=== PATIENT | male | born 1945 | race Native Hawaiian/Other Pacific Islander ===

== ENCOUNTER 2017-06-29 06:32 | Inpatient (IN) | payer MEDICARE, MEDICAID ==
[2017-06-29 07:15] LABS: BASO % 0.3 % (0.0-2.0)
[2017-06-29 07:19] LABS: EOS % 0.1 % (0.0-4.0); LYMPH % 8.3 % (20.0-40.0); MEAN CELL VOLUME 99.6 fL (80.0-94.0); MEAN CORPUSCULAR HGB CONC 32.1 g/dL (33.0-37.0); MEAN PLATELET VOLUME 10.3 fL (7.2-11.7); MONO # 0.5 K/uL (0.0-0.8); MONO % 4.6 % (0.0-10.0); NEUT % 86.7 % (50.0-75.0); PLATELET COUNT 248 K/uL (130-400); RBC 6.38 Mil/uL (4.40-5.90); RED CELL DISTRIBUTION WIDTH 13.7 % (11.5-14.5); WHITE BLOOD COUNT 11.5 K/uL (4.8-10.8)
[2017-06-29 07:22] LABS: PROTHROMBIN TIME 11.1 SECONDS (9.7-12.2)
[2017-06-29 07:25] LABS: HEMOGLOBIN 20.4 g/dL (12.0-18.0)
[2017-06-29] MEDS ORDERED: Sodium Chloride 0.9% 1,000 ML IV ONE ×2 (07:32→07:56)
[2017-06-29] MEDS ORDERED: Sodium Chloride 0.9% 1,000 ML ONE (07:50)
[2017-06-29 07:51] LABS: VENOUS BLOOD GAS PCO2 43 mmHg (40-60); VENOUS BLOOD GAS PO2 45 mm/Hg (30-55); VENOUS BLOOD PH 7.27 (7.32-7.43)
[2017-06-29] MEDS ORDERED: Vancomycin 1 gm/NS 200 ml 1 GM/200 ML BAG IVPB STA (08:00)
[2017-06-29] MEDS ORDERED: Piperacill/Tazo 3.375gm in Dex 3.375 GM/50 ML BAG IVPB STA (08:00)
[2017-06-29 08:09] LABS: ALB/GLOB RATIO 0.9 (1.0-2.1); ALBUMIN 4.5 g/dL (3.5-5.0); ALT/SGPT 46 U/L (21-72); AST/SGOT 50 U/L (17-59); BLOOD UREA NITROGEN 78 mg/dL (9-20); CALCIUM 10.9 mg/dl (8.6-10.4); GFR AFRICAN-AMERICAN 27; GFR NON-AFRICAN AMERICAN 22
[2017-06-29 08:10] LABS: BANDS 4 % (0-2); LYMPHOCYTE 5 % (20-40); MONOCYTE 2 % (0-10); NEUTROPHIL 89 % (50-75); TOTAL CELLS COUNTED 100
[2017-06-29 08:11] LABS: PLATELET ESTIMATE NORMAL (NORMAL)
--- NOTE | 2017-06-29 08:22 | C.PDOC ---
History Of Present Illness 72 y/o male brought to ER by family for decreased appetite and generalized weakness x 3 days. Pt is also c/o of a headache which began last night. Pt denies having other complaints. Time Seen by Provider: 06/29/17 07:30 Chief Complaint (Nursing): Dizziness/Lightheaded History Per: Patient, Family History/Exam Limitations: no limitations Onset/Duration Of Symptoms: Days Current Symptoms Are (Timing): Still Present Past Medical History Reviewed: Historical Data, Nursing Documentation, Vital Signs Vital Signs: Last Vital Signs Temp 98.2 F 06/29/17 16:00 Pulse 100 H 06/29/17 17:20 Resp 26 H 06/29/17 17:20 BP 142/68 06/29/17 16:30 Pulse Ox 96 06/29/17 19:22 - Medical History PMH: Hypercholesterolemia, Hypothyroidism Surgical History: No Surg Hx Family History: States: No Known Family Hx - Social History Hx Alcohol Use: No Hx Substance Use: No - Immunization History Hx Tetanus Toxoid Vaccination: No Hx Influenza Vaccination: No Hx Pneumococcal Vaccination: No Review Of Systems Constitutional: Positive for: Weakness. Negative for: Fever, Chills Neurological: Positive for: Headache Physical Exam - Physical Exam Appears: Toxic, Confused, Chronically Ill Skin: Warm, Dry Head: Atraumatic, Normacephalic Eye(s): bilateral: Normal Inspection Oral Mucosa: Dry Teeth: Edentulous (mostly edentulous) Neck: Supple Chest: Symmetrical Cardiovascular: Rhythm Irregular (tachycardiac), No Murmur Respiratory: No Wheezing, Other (difficult to examine) Gastrointestinal/Abdominal: Soft, Distention (mild distention) Extremity: No Pedal Edema Pulses: Left Dorsalis Pedis: Normal, Right Dorsalis Pedis: Normal Neurological/Psych: Oriented x3, Normal Speech, Normal Motor, Normal Sensation ED Course And Treatment - Laboratory Results Result Diagrams: 06/29/17 07:08 06/29/17 15:31 O2 Sat by Pulse Oximetry: 96 (RA) Pulse Ox Interpretation: Normal - Radiology CXR: Interpreted by Me, Viewed By Me CXR Interpretation: Yes: No Acute Disease - CT Scan/US CT-Head Other Rad Studies (CT/US): Read By Radiologist CT/US Interpretation: PROCEDURE: CT HEAD WITHOUT CONTRAST. HISTORY: Altered mental status, dizziness. COMPARISON: None available. TECHNIQUE: Axial computed tomography images were obtained through the head/brain without intravenous contrast. Radiation dose: Total exam DLP = 1730.48 mGy-cm. This CT exam was performed using one or more of the following dose reduction techniques: Automated exposure control, adjustment of the mA and/or kV according to patient size, and/or use of iterative reconstruction technique. FINDINGS: HEMORRHAGE: No intracranial hemorrhage. BRAIN: There is an old lacunar infarction in the right last radiata. There are mild chronic microangiopathic changes. There is no mass, mass effect or abnormal extra- axial fluid collection. There are coarse atherosclerotic calcifications in the cavernous carotid arteries. VENTRICLES: There is moderate age-related global parenchymal volume loss and proportionate enlargement of the ventricles and cortical sulci. CALVARIUM: The skull base and calvarium are normal. PARANASAL SINUSES: Predominantly clear. MASTOID AIR CELLS: Predominantly clear. OTHER FINDINGS: None. IMPRESSION: No acute intracranial abnormality. Old lacunar infarction in the right last radiata. Mild chronic microangiopathic changes and moderate age-related global parenchymal volume loss. Medical Decision Making Medical Decision Making: Plan: --Labs --EKG --CT-Head Updates: sepsis code called Dr Araya aware for Dr Juan Manuel Dao ICU to see patient Disposition Discussed With Dr.: Reyna Araya Doctor Will See Patient In The: Hospital - Disposition Disposition: HOSPITALIZED Disposition Time: 08:59 Condition: SERIOUS - Clinical Impression Clinical Impression: Sepsis, Renal failure, DKA (diabetic ketoacidoses) - PA / CLAIMS COUNSEL / Resident Statement MD/DO has reviewed & agrees with the documentation as recorded. - Scribe Statement The provider has reviewed the documentation as recorded by the Yeimy Ortiz Provider Attestation All medical record entries made by the Yeimy were at my direction and personally dictated by me. I have reviewed the chart and agree that the record accurately reflects my personal performance of the history, physical exam, medical decision making, and the department course for this patient. I have also personally directed, reviewed, and agree with the discharge instructions and disposition.
[2017-06-29] MEDS ORDERED: (Novolin R) Insulin Human Regular 100 units/ml vial IV ONE (08:31)
[2017-06-29] MEDS ORDERED: Insulin Human Regular 100 UNIT in Sodium Chloride 0.9% 99 ML IV SCH (08:45)
--- NOTE | 2017-06-29 08:47 | CP.PCM.CON ---
<Lelo Perez - Last Filed: 06/29/17 15:06> History of Present Illness - History of Present Illness History of Present Illness: ICU Consult Note: Patient is a 72 year old male with past medical history of BPH and Hypothyroidism presents to the ED for 3 day history of decrease appetite and generalized weakness. Patient's nephew is at the bedside providing the history. States that the patient reported having a headache and dizziness last night. He states that he gave him Aleeve before bed. This morning he reports that the patients gait was unstable which prompted him to come to the ED. Code sepsis was called. ICU was consulted for this admission. ED course: NS bolus 1L x 2, Zosyn 3.375mg IV x 1, Vancomycin 1gm x 1, Insulin Drip Allergies: NKDA Medications: Synthroid 25 mcg PO daily, Flomax 0.4mg PO daily, Multivitamins Medical Hx: Hypothyroidism, BPH, Hypercholesterolemia Surgical Hx: Denies Social Hx: Denies alcohol, tobacco, drug use Family Hx: Non-contributory Past Patient History - Infectious Disease Hx of Infectious Diseases: None - Past Social History Smoking Status: Never Smoked - CARDIAC Hx Hypercholesterolemia: Yes - ENDOCRINE/METABOLIC Hx Hypothyroidism: Yes - PSYCHIATRIC Hx Substance Use: No - SURGICAL HISTORY Hx Surgeries: No - ANESTHESIA Hx Anesthesia: No Meds Allergies/Adverse Reactions: Allergies Allergy/AdvReac Type Severity Reaction Status Date / Time No Known Allergies Allergy Verified 06/29/17 06:45 - Medications Medications: Current Medications Sodium Chloride (Sodium Chloride 0.9%) 1,000 mls @ 1,000 mls/hr IV .Q1H ONE Stop: 06/29/17 08:55 Last Admin: 06/29/17 08:00 Dose: 1,000 mls/hr Vancomycin/Sodium Chloride (Vancomycin 1 Gm/Ns 200 Ml) 1 gm in 200 mls @ 133 mls/hr IVPB STAT STA PRN Reason: Protocol Stop: 06/29/17 09:30 Insulin Human Regular 100 unit (/ Sodium Chloride) 100 mls @ 7 mls/hr IV .[id number] [facility] Physical Exam - Constitutional Appears: Chronically Ill - Head Exam Head Exam: ATRAUMATIC, NORMAL INSPECTION - Eye Exam Additional comments: Patient is blind - ENT Exam ENT Exam: Mucous Membranes Dry Additional comments: +hearing aid in the right ear - Respiratory Exam Respiratory Exam: Clear to Auscultation Bilateral, NORMAL BREATHING PATTERN. absent: Rales, Rhonchi, Wheezes - Cardiovascular Exam Cardiovascular Exam: Tachycardia, REGULAR RHYTHM, +S1, +S2 - GI/Abdominal Exam GI & Abdominal Exam: Normal Bowel Sounds, Soft. absent: Guarding, Rebound, Rigid, Tenderness - Extremities Exam Extremities exam: Positive for: normal inspection - Neurological Exam Neurological exam: Abnormal Gait (Patient is blind), Alert, Altered - Skin Skin Exam: Dry, Normal Color, Warm Results - Vital Signs Recent Vital Signs: Last Vital Signs Temp 98.7 F 06/29/17 08:02 Pulse 109 H 06/29/17 08:02 Resp 18 06/29/17 08:02 BP 150/109 H 06/29/17 08:02 Pulse Ox 96 06/29/17 08:45 - Labs Result Diagrams: 06/29/17 07:08 06/29/17 11:13 Labs: Laboratory Results - last 24 hr 06/29/17 06/29/17 06/29/17 07:08 07:08 07:08 WBC 11.5 H RBC 6.38 H Hgb 20.4 H* Hct 63.5 H MCV 99.6 H MCH 32.0 H MCHC 32.1 L RDW 13.7 Plt Count 248 MPV 10.3 Neut % (Auto) 86.7 H Lymph % (Auto) 8.3 L [place] % (Auto) 4.6 Eos % (Auto) 0.1 Baso % (Auto) 0.3 Neut # (Auto) 10.0 H Lymph # (Auto) 1.0 [place] # (Auto) 0.5 Eos # (Auto) 0.0 Baso # (Auto) 0.0 Neutrophils % (Manual) 89 H Band Neutrophils % 4 H Lymphocytes % (Manual) 5 L Monocytes % (Manual) 2 Platelet Estimate Normal RBC Morphology Normal PT 11.1 INR 1.0 APTT 32 pO2 VBG pH VBG pCO2 VBG HCO3 VBG Total CO2 VBG O2 Sat (Calc) VBG Base Excess VBG Potassium Glucose Lactate Crit Value Called To Crit Value Called By Crit Value Read Back Blood Gas Notified Time Sodium 144 Potassium 5.5 H Chloride 94 L Carbon Dioxide 16 L Anion Gap 39 H BUN 78 H Creatinine 2.8 H Est GFR ( Amer) 27 Est GFR (Non-Af Amer) 22 Random Glucose 1108 H* Calcium 10.9 H Phosphorus Magnesium Total Bilirubin 1.3 AST 50 ALT 46 Alkaline Phosphatase 133 H Troponin I 0.1070 NT-Pro-B Natriuret Pep Total Protein 9.4 H Albumin 4.5 Globulin 4.9 H Albumin/Globulin Ratio 0.9 L Venous Blood Potassium Serum Ketones Moderate 06/29/17 06/29/17 07:46 08:00 WBC RBC Hgb Hct MCV MCH MCHC RDW Plt Count MPV Neut % (Auto) Lymph % (Auto) [place] % (Auto) Eos % (Auto) Baso % (Auto) Neut # (Auto) Lymph # (Auto) [place] # (Auto) Eos # (Auto) Baso # (Auto) Neutrophils % (Manual) Band Neutrophils % Lymphocytes % (Manual) Monocytes % (Manual) Platelet Estimate RBC Morphology PT INR APTT pO2 45 VBG pH 7.27 L VBG pCO2 43 VBG HCO3 18.8 VBG Total CO2 21.0 L VBG O2 Sat (Calc) 79.4 H VBG Base Excess -7.0 L VBG Potassium 5.7 H Glucose > 750 H* Lactate 5.1 H* Crit Value Called To Dr gupta Crit Value Called By Monty wright food general manager Crit Value Read Back Y Blood Gas Notified Time 750 Sodium 146.0 Potassium Chloride 91.0 L Carbon Dioxide Anion Gap BUN Creatinine Est GFR ( Amer) Est GFR (Non-Af Amer) Random Glucose Calcium Phosphorus 8.2 H Magnesium 3.3 H Total Bilirubin AST ALT Alkaline Phosphatase Troponin I NT-Pro-B Natriuret Pep 356 Total Protein Albumin Globulin Albumin/Globulin Ratio Venous Blood Potassium 5.7 H Serum Ketones Assessment & Plan - Assessment and Plan (Free Text) Assessment: Patient is a 72 year old male with past medical history of BPH, hypothyroidism who presented with decreased appetite x 3 days, generalized weakness and unstable gait. Code sepsis was called in the ED. Source unknown at this time. Neurology: -Patient presented with altered mental status -Currently he is awake, but confused -CT head: No acute intracranial abnormality. Old lacunar infarction in the right last radiata. Mild chronic microangiopathic changes and moderate age- related global parenchymal volume loss -Aspiration precautions, Fall precautions Cardiology: -Tachycardia, HR 110-120s -EKG ordered, f/u read -F/U TSH, Free T4 levels, lipid panel Respiratory: -CXR 06/29: No active disease Endocrine: -Patient with history of Hypothyroidism -On Synthroid 25mcg PO daily at home -F/U TSH, Free T4 -Family denies prior history diabetes -Serum glucose 1108 on admission -Insulin 10 units x 1, then start Insulin drip at 7 mls/hour -Monitor CMPs Q4H, Serum ketones Q4H, Accuchecks q1H -Continue NS @ 250cc/hr Heme/Onc: -Hgb/Hct: 20.4/63.5 -Likely due to dehydration -Continue NS @ 250cc/hr -Will monitor serial CBCs Renal: -Elevated Bun/Cr: 78/2.8 -Baseline renal function unknown -Urine sodium, Urine creatinine ordered -Continue IV fluid hydration -Monitoring CMPs Q4H -Edwards in, strict I/Os Infectious Disease: -Patient is code sepsis -Lactate on VBG 5.1, f/u repeat lactate -S/P NS 1L bolus x 2 in the ED, Received vanco and zosyn -Source is unknown at this time -UA: +1 protein, +3 glucose, +2 blood, trace ketones -F/U blood cultures, urine cultures, procal -Antibiotics: Vancomycin 1gm IV Q24H, Zosyn 2.25mg IV Q8H GI/DVT ppx: -Pepcid 20mg IVP daily -Heparin 5000 units SC Q12H <Steven Keith - Last Filed: 06/29/17 15:13> Meds - Medications Medications: Current Medications Famotidine (Pepcid) 20 mg IVP DAILY [facility] Last Admin: 06/29/17 12:39 Dose: 20 mg Heparin Sodium (Porcine) (Heparin) 5,000 units SC Q12 [facility] Last Admin: 06/29/17 12:39 Dose: 5,000 units Insulin Human Regular 100 unit (/ Sodium Chloride) 100 mls @ 7 mls/hr IV .[id number] [facility] Last Admin: 06/29/17 09:48 Dose: 7 mls/hr Vancomycin/Sodium Chloride (Vancomycin 1 Gm/Ns 200 Ml) 1 gm in 200 mls @ 133.333 mls/hr IVPB Q24H [facility] PRN Reason: Protocol Last Admin: 06/29/17 12:09 Dose: Not Given Piperacillin Sod/Tazobactam Sod (Zosyn 2.25 Gm Iv Premix) 2.25 gm in 50 mls @ 100 mls/hr IVPB Q8H [facility] PRN Reason: Protocol Potassium Chloride 20 meq/ (Sodium Chloride) 1,010 mls @ 250 mls/hr IV .Q4H3M [facility] Last Admin: 06/29/17 13:54 Dose: 250 mls/hr Results - Vital Signs Recent Vital Signs: Last Vital Signs Temp 98.1 F 06/29/17 12:00 Pulse 101 H 06/29/17 13:50 Resp 24 06/29/17 13:50 BP 131/71 06/29/17 13:31 Pulse Ox 91 L 06/29/17 13:50 - Labs Result Diagrams: 06/29/17 07:08 06/29/17 11:13 Labs: Laboratory Results - last 24 hr 06/29/17 06/29/17 06/29/17 07:08 07:08 07:08 WBC 11.5 H RBC 6.38 H Hgb 20.4 H* Hct 63.5 H MCV 99.6 H MCH 32.0 H MCHC 32.1 L RDW 13.7 Plt Count 248 MPV 10.3 Neut % (Auto) 86.7 H Lymph % (Auto) 8.3 L [place] % (Auto) 4.6 Eos % (Auto) 0.1 Baso % (Auto) 0.3 Neut # (Auto) 10.0 H Lymph # (Auto) 1.0 [place] # (Auto) 0.5 Eos # (Auto) 0.0 Baso # (Auto) 0.0 Neutrophils % (Manual) 89 H Band Neutrophils % 4 H Lymphocytes % (Manual) 5 L Monocytes % (Manual) 2 Platelet Estimate Normal RBC Morphology Normal PT 11.1 INR 1.0 APTT 32 pO2 VBG pH VBG pCO2 VBG HCO3 VBG Total CO2 VBG O2 Sat (Calc) VBG Base Excess VBG Potassium Glucose Lactate Crit Value Called To Crit Value Called By Crit Value Read Back Blood Gas Notified Time Sodium 144 Potassium 5.5 H Chloride 94 L Carbon Dioxide 16 L Anion Gap 39 H BUN 78 H Creatinine 2.8 H Est GFR ( Amer) 27 Est GFR (Non-Af Amer) 22 POC Glucose (mg/dL) Random Glucose 1108 H* Hemoglobin A1c Lactic Acid Calcium 10.9 H Phosphorus Magnesium Total Bilirubin 1.3 AST 50 ALT 46 Alkaline Phosphatase 133 H Troponin I 0.1070 NT-Pro-B Natriuret Pep Total Protein 9.4 H Albumin 4.5 Globulin 4.9 H Albumin/Globulin Ratio 0.9 L Triglycerides Cholesterol LDL Cholesterol Direct HDL Cholesterol Procalcitonin Free T4 TSH 3rd Generation Venous Blood Potassium Urine Color Urine Clarity Urine pH Ur Specific [place] Urine Protein Urine Glucose (UA) Urine Ketones Urine Blood Urine Nitrate Urine Bilirubin Urine Urobilinogen Ur Leukocyte Esterase Urine WBC (Auto) Urine RBC (Auto) Urine Bacteria Serum Ketones Moderate 06/29/17 06/29/17 06/29/17 07:46 08:00 08:21 WBC RBC Hgb Hct MCV MCH MCHC RDW Plt Count MPV Neut % (Auto) Lymph % (Auto) [place] % (Auto) Eos % (Auto) Baso % (Auto) Neut # (Auto) Lymph # (Auto) [place] # (Auto) Eos # (Auto) Baso # (Auto) Neutrophils % (Manual) Band Neutrophils % Lymphocytes % (Manual) Monocytes % (Manual) Platelet Estimate RBC Morphology PT INR APTT pO2 45 VBG pH 7.27 L VBG pCO2 43 VBG HCO3 18.8 VBG Total CO2 21.0 L VBG O2 Sat (Calc) 79.4 H VBG Base Excess -7.0 L VBG Potassium 5.7 H Glucose > 750 H* Lactate 5.1 H* Crit Value Called To Dr gupta Crit Value Called By Monty wright food general manager Crit Value Read Back Y Blood Gas Notified Time 750 Sodium 146.0 Potassium Chloride 91.0 L Carbon Dioxide Anion Gap BUN Creatinine Est GFR ( Amer) Est GFR (Non-Af Amer) POC Glucose (mg/dL) Random Glucose Hemoglobin A1c Lactic Acid Calcium Phosphorus 8.2 H Magnesium 3.3 H Total Bilirubin AST ALT Alkaline Phosphatase Troponin I NT-Pro-B Natriuret Pep 356 Total Protein Albumin Globulin Albumin/Globulin Ratio Triglycerides Cholesterol LDL Cholesterol Direct HDL Cholesterol Procalcitonin Free T4 TSH 3rd Generation Venous Blood Potassium 5.7 H Urine Color Yellow Urine Clarity Hazy Urine pH 5.0 Ur Specific [place] 1.026 Urine Protein 1+ H Urine Glucose (UA) 3+ H Urine Ketones Trace Urine Blood 2+ H Urine Nitrate Negative Urine Bilirubin Negative Urine Urobilinogen Normal Ur Leukocyte Esterase Neg Urine WBC (Auto) 1 Urine RBC (Auto) 1 Urine Bacteria Rare Serum Ketones 06/29/17 06/29/17 06/29/17 10:25 10:34 11:13 WBC RBC Hgb Hct MCV MCH MCHC RDW Plt Count MPV Neut % (Auto) Lymph % (Auto) [place] % (Auto) Eos % (Auto) Baso % (Auto) Neut # (Auto) Lymph # (Auto) [place] # (Auto) Eos # (Auto) Baso # (Auto) Neutrophils % (Manual) Band Neutrophils % Lymphocytes % (Manual) Monocytes % (Manual) Platelet Estimate RBC Morphology PT INR APTT pO2 VBG pH VBG pCO2 VBG HCO3 VBG Total CO2 VBG O2 Sat (Calc) VBG Base Excess VBG Potassium Glucose Lactate Crit Value Called To Crit Value Called By Crit Value Read Back Blood Gas Notified Time Sodium 158 H Potassium 3.8 Chloride 112 H Carbon Dioxide 22 Anion Gap 28 H BUN 71 H Creatinine 2.0 H Est GFR ( Amer) 40 Est GFR (Non-Af Amer) 33 POC Glucose (mg/dL) > 500 H* 466 H* Random Glucose 522 H* D Hemoglobin A1c Lactic Acid Calcium 9.5 Phosphorus Magnesium Total Bilirubin 1.0 AST 41 ALT 46 Alkaline Phosphatase 96 Troponin I NT-Pro-B Natriuret Pep Total Protein 7.6 Albumin 3.6 Globulin 4.0 H Albumin/Globulin Ratio 0.9 L Triglycerides 299 H Cholesterol 180 LDL Cholesterol Direct 119 HDL Cholesterol 30 Procalcitonin Free T4 TSH 3rd Generation 0.47 Venous Blood Potassium Urine Color Urine Clarity Urine pH Ur Specific [place] Urine Protein Urine Glucose (UA) Urine Ketones Urine Blood Urine Nitrate Urine Bilirubin Urine Urobilinogen Ur Leukocyte Esterase Urine WBC (Auto) Urine RBC (Auto) Urine Bacteria Serum Ketones Moderate 06/29/17 06/29/17 06/29/17 11:13 11:13 11:13 WBC RBC Hgb Hct MCV MCH MCHC RDW Plt Count MPV Neut % (Auto) Lymph % (Auto) [place] % (Auto) Eos % (Auto) Baso % (Auto) Neut # (Auto) Lymph # (Auto) [place] # (Auto) Eos # (Auto) Baso # (Auto) Neutrophils % (Manual) Band Neutrophils % Lymphocytes % (Manual) Monocytes % (Manual) Platelet Estimate RBC Morphology PT INR APTT pO2 VBG pH VBG pCO2 VBG HCO3 VBG Total CO2 VBG O2 Sat (Calc) VBG Base Excess VBG Potassium Glucose Lactate Crit Value Called To Crit Value Called By Crit Value Read Back Blood Gas Notified Time Sodium Potassium Chloride Carbon Dioxide Anion Gap BUN Creatinine Est GFR ( Amer) Est GFR (Non-Af Amer) POC Glucose (mg/dL) Random Glucose Hemoglobin A1c Lactic Acid 3.3 H Calcium Phosphorus Magnesium Total Bilirubin AST ALT Alkaline Phosphatase Troponin I NT-Pro-B Natriuret Pep Total Protein Albumin Globulin Albumin/Globulin Ratio Triglycerides Cholesterol LDL Cholesterol Direct HDL Cholesterol Procalcitonin 0.36 Free T4 1.06 TSH 3rd Generation Venous Blood Potassium Urine Color Urine Clarity Urine pH Ur Specific [place] Urine Protein Urine Glucose (UA) Urine Ketones Urine Blood Urine Nitrate Urine Bilirubin Urine Urobilinogen Ur Leukocyte Esterase Urine WBC (Auto) Urine RBC (Auto) Urine Bacteria Serum Ketones 06/29/17 06/29/17 06/29/17 11:13 11:31 12:32 WBC RBC Hgb Hct MCV MCH MCHC RDW Plt Count MPV Neut % (Auto) Lymph % (Auto) [place] % (Auto) Eos % (Auto) Baso % (Auto) Neut # (Auto) Lymph # (Auto) [place] # (Auto) Eos # (Auto) Baso # (Auto) Neutrophils % (Manual) Band Neutrophils % Lymphocytes % (Manual) Monocytes % (Manual) Platelet Estimate RBC Morphology PT INR APTT pO2 VBG pH VBG pCO2 VBG HCO3 VBG Total CO2 VBG O2 Sat (Calc) VBG Base Excess VBG Potassium Glucose Lactate Crit Value Called To Crit Value Called By Crit Value Read Back Blood Gas Notified Time Sodium Potassium Chloride Carbon Dioxide Anion Gap BUN Creatinine Est GFR ( Amer) Est GFR (Non-Af Amer) POC Glucose (mg/dL) 352 H 281 H Random Glucose Hemoglobin A1c 12.9 H Lactic Acid Calcium Phosphorus Magnesium Total Bilirubin AST ALT Alkaline Phosphatase Troponin I NT-Pro-B Natriuret Pep Total Protein Albumin Globulin Albumin/Globulin Ratio Triglycerides Cholesterol LDL Cholesterol Direct HDL Cholesterol Procalcitonin Free T4 TSH 3rd Generation Venous Blood Potassium Urine Color Urine Clarity Urine pH Ur Specific [place] Urine Protein Urine Glucose (UA) Urine Ketones Urine Blood Urine Nitrate Urine Bilirubin Urine Urobilinogen Ur Leukocyte Esterase Urine WBC (Auto) Urine RBC (Auto) Urine Bacteria Serum Ketones 06/29/17 14:10 WBC RBC Hgb Hct MCV MCH MCHC RDW Plt Count MPV Neut % (Auto) Lymph % (Auto) [place] % (Auto) Eos % (Auto) Baso % (Auto) Neut # (Auto) Lymph # (Auto) [place] # (Auto) Eos # (Auto) Baso # (Auto) Neutrophils % (Manual) Band Neutrophils % Lymphocytes % (Manual) Monocytes % (Manual) Platelet Estimate RBC Morphology PT INR APTT pO2 VBG pH VBG pCO2 VBG HCO3 VBG Total CO2 VBG O2 Sat (Calc) VBG Base Excess VBG Potassium Glucose Lactate Crit Value Called To Crit Value Called By Crit Value Read Back Blood Gas Notified Time Sodium Potassium Chloride Carbon Dioxide Anion Gap BUN Creatinine Est GFR ( Amer) Est GFR (Non-Af Amer) POC Glucose (mg/dL) 194 H Random Glucose Hemoglobin A1c Lactic Acid Calcium Phosphorus Magnesium Total Bilirubin AST ALT Alkaline Phosphatase Troponin I NT-Pro-B Natriuret Pep Total Protein Albumin Globulin Albumin/Globulin Ratio Triglycerides Cholesterol LDL Cholesterol Direct HDL Cholesterol Procalcitonin Free T4 TSH 3rd Generation Venous Blood Potassium Urine Color Urine Clarity Urine pH Ur Specific [place] Urine Protein Urine Glucose (UA) Urine Ketones Urine Blood Urine Nitrate Urine Bilirubin Urine Urobilinogen Ur Leukocyte Esterase Urine WBC (Auto) Urine RBC (Auto) Urine Bacteria Serum Ketones Attending/Attestation - Attestation I have personally seen and examined this patient.: Yes I have fully participated in the care of the patient.: Yes I have reviewed all pertinent clinical information: Yes Notes (Text): 06/29/17 15:11 patient seen and examined 72-year-old male presented to emergency room with generalized weakness, dizziness and headache s/p code sepsis for elevated left. Patient phone to have very high glucose, elevated BUN/creatinine and severely dehydrated Received 3 L of normal saline in the emergency room and started on insulin drip Continue to monitor glucose Continue to monitor anion gap, potassium and renal function/sodium Continue antibiotics LP is no change in mental status
[2017-06-29 08:57] LABS: URINE BACTERIA RARE (<OCC); URINE BILIRUBIN NEGATIVE (NEGATIVE); URINE BLOOD 2+ (NEGATIVE); URINE CLARITY Hazy (Clear); URINE COLOR Yellow (YELLOW); URINE GLUCOSE (UA) 3+ mg/dL (Normal); URINE LEUKOCYTE ESTERASE NEG Leu/uL (Negative); URINE PROTEIN 1+ mg/dL (NEGATIVE); URINE UROBILINOGEN NORMAL mg/dL (0.2-1.0)
--- NOTE | 2017-06-29 09:10 | RAD ---
HISTORY: Cough COMPARISON: No prior. FINDINGS: LUNGS: The lungs are well inflated and clear. PLEURA: No significant pleural effusion identified, no pneumothorax apparent. CARDIOVASCULAR: Normal. OSSEOUS STRUCTURES: No significant abnormalities. VISUALIZED UPPER ABDOMEN: Normal. OTHER FINDINGS: None. IMPRESSION: No active pulmonary disease.
[2017-06-29] MEDS ORDERED: (Novolin R) Insulin Human Regular 100 units/ml vial ONE (09:13)
--- NOTE | 2017-06-29 09:46 | CT ---
PROCEDURE: CT HEAD WITHOUT CONTRAST. HISTORY: Altered mental status, dizziness COMPARISON: None available. TECHNIQUE: Axial computed tomography images were obtained through the head/brain without intravenous contrast. Radiation dose: Total exam DLP = 1730.48 mGy-cm. This CT exam was performed using one or more of the following dose reduction techniques: Automated exposure control, adjustment of the mA and/or kV according to patient size, and/or use of iterative reconstruction technique. FINDINGS: HEMORRHAGE: No intracranial hemorrhage. BRAIN: There is an old lacunar infarction in the right last radiata. There are mild chronic microangiopathic changes. There is no mass, mass effect or abnormal extra-axial fluid collection. There are coarse atherosclerotic calcifications in the cavernous carotid arteries. VENTRICLES: There is moderate age-related global parenchymal volume loss and proportionate enlargement of the ventricles and cortical sulci. CALVARIUM: The skull base and calvarium are normal. PARANASAL SINUSES: Predominantly clear. MASTOID AIR CELLS: Predominantly clear. OTHER FINDINGS: None. IMPRESSION: No acute intracranial abnormality. Old lacunar infarction in the right last radiata. Mild chronic microangiopathic changes and moderate age-related global parenchymal volume loss.
[2017-06-29] MEDS ORDERED: Sodium Chloride 0.9% 1,000 ML IV SCH (10:45)
[2017-06-29 11:44] LABS: ALB/GLOB RATIO 0.9 (1.0-2.1); ALBUMIN 3.6 g/dL (3.5-5.0); ALT/SGPT 46 U/L (21-72); AST/SGOT 41 U/L (17-59); BLOOD UREA NITROGEN 71 mg/dL (9-20); CALCIUM 9.5 mg/dl (8.6-10.4); GFR AFRICAN-AMERICAN 40; GFR NON-AFRICAN AMERICAN 33; HDL CHOLESTEROL 30 mg/dL (30-70)
[2017-06-29] MEDS ORDERED: Piperacill/Tazo 2.25gm in Dex 2.25 GM/50 ML BAG IVPB SCH (12:00)
[2017-06-29] MEDS: Vancomycin 1 gm/NS 200 ml 1 GM/200 ML BAG IVPB SCH (12:09)
[2017-06-29 12:29] LABS: LDL CHOLESTEROL 119 mg/dL (0-129)
[2017-06-29] MEDS ORDERED: Potassium Chloride 20 MEQ in Sodium Chloride 0.45% 1,000 ML IV SCH (14:00)
--- NOTE | 2017-06-29 14:01 | PCM.SEPTIC ---
Sepsis Progress Note - Reassessment Type Date of Evaluation: 06/29/17 Time of Evaluation: 11:15 Reassessment Type: Non-invasive reassessment - Non Invasive Reassessment Were the most recent vital sign reviewed: Yes Vital Sign (Latest): Temp Pulse Resp BP Pulse Ox 97.9 F 101 H 24 131/71 91 L 06/29/17 09:00 06/29/17 13:50 06/29/17 13:50 06/29/17 13:31 06/29/17 13:50 Cardiovascular: Yes: Regular Rate, Rhythm, Tachycardia Respiratory: Yes: Normal Breath Sounds. No: Rales, Rhonchi, Wheezing Capillary Refill: Normal (Less than 2 sec) Pulses: Normal Radial, Normal Dorsalis Pedis, Normal Posterior Tibialis Skin: Normal Color, Warm, Dry - Invasive Reassessment (complete 2 of 4) Was a Central Venous Pressure Measurement obtained within 6 Hours after the presentation of septic shock: No Was a central venous oxygen measurement obtained within 6 hours after the presentation of septic shock: No Was a bedside cardiovascular ultrasound performed within 6 hours after the presentation of septic shock: No Was a passive leg raise performed or was a fluid challenge performed within 6 hrs of the initial fluid bolus: Yes Passive Leg Raise Result: Not Applicable Fluid Challenge performed: Yes
[2017-06-29 16:07] LABS: ALB/GLOB RATIO 0.8 (1.0-2.1); ALBUMIN 3.4 g/dL (3.5-5.0); ALT/SGPT 41 U/L (21-72); AST/SGOT 53 U/L (17-59); BLOOD UREA NITROGEN 61 mg/dL (9-20); GFR AFRICAN-AMERICAN 55; GFR NON-AFRICAN AMERICAN 46
[2017-06-29] MEDS: Piperacill/Tazo 2.25gm in Dex 2.25 GM/50 ML BAG IVPB SCH ×2 (16:35→23:42)
[2017-06-29] MEDS: (Novolog) Insulin Aspart, Recombinant 100 u/ml 10 ml vial SC SCH ×2 (17:34→21:13)
--- NOTE | 2017-06-29 18:00 | CP.PCM.HP ---
Past Patient History - Infectious Disease Hx of Infectious Diseases: None - Past Medical History & Family History Past Medical History?: Yes - Past Social History Smoking Status: Never Smoked - CARDIAC Hx Hypercholesterolemia: Yes - PULMONARY Hx Asthma: No - HEENT Hx Blind: Yes - RENAL Hx Chronic Kidney Disease: No - ENDOCRINE/METABOLIC Hx Hypothyroidism: Yes - MUSCULOSKELETAL/RHEUMATOLOGICAL Hx Musculoskeletal Disorders: No Hx Falls: No - GASTROINTESTINAL Hx Gastrointestinal Disorders: No - GENITOURINARY/GYNECOLOGICAL Hx Genitourinary Disorders: No - PSYCHIATRIC Hx Substance Use: No - SURGICAL HISTORY Hx Surgeries: No - ANESTHESIA Hx Anesthesia: No Meds Allergies/Adverse Reactions: Allergies Allergy/AdvReac Type Severity Reaction Status Date / Time No Known Allergies Allergy Verified 06/29/17 06:45 Physical Exam - Constitutional Appears: Well - Head Exam Head Exam: ATRAUMATIC, NORMAL INSPECTION, NORMOCEPHALIC - Eye Exam Eye Exam: EOMI, Normal appearance, PERRL Pupil Exam: NORMAL ACCOMODATION, PERRL - ENT Exam ENT Exam: Mucous Membranes Moist, Normal Exam - Neck Exam Neck exam: Positive for: Normal Inspection - Respiratory Exam Respiratory Exam: Decreased Breath Sounds - Cardiovascular Exam Cardiovascular Exam: REGULAR RHYTHM, +S1, +S2 - GI/Abdominal Exam GI & Abdominal Exam: Diminished Bowel Sounds, Soft - Rectal Exam Rectal Exam: Deferred Results - Vital Signs Recent Vital Signs: Last Vital Signs Temp 98.2 F 06/29/17 16:00 Pulse 100 H 06/29/17 17:20 Resp 26 H 06/29/17 17:20 BP 142/68 06/29/17 16:30 Pulse Ox 96 06/29/17 17:20 - Labs Result Diagrams: 06/29/17 07:08 06/29/17 15:31 Labs: Laboratory Results - last 24 hr 06/29/17 06/29/17 06/29/17 07:08 07:08 07:08 WBC 11.5 H RBC 6.38 H Hgb 20.4 H* Hct 63.5 H MCV 99.6 H MCH 32.0 H MCHC 32.1 L RDW 13.7 Plt Count 248 MPV 10.3 Neut % (Auto) 86.7 H Lymph % (Auto) 8.3 L Evangeline % (Auto) 4.6 Eos % (Auto) 0.1 Baso % (Auto) 0.3 Neut # (Auto) 10.0 H Lymph # (Auto) 1.0 Evangeline # (Auto) 0.5 Eos # (Auto) 0.0 Baso # (Auto) 0.0 Neutrophils % (Manual) 89 H Band Neutrophils % 4 H Lymphocytes % (Manual) 5 L Monocytes % (Manual) 2 Platelet Estimate Normal RBC Morphology Normal PT 11.1 INR 1.0 APTT 32 pO2 VBG pH VBG pCO2 VBG HCO3 VBG Total CO2 VBG O2 Sat (Calc) VBG Base Excess VBG Potassium Glucose Lactate Crit Value Called To Crit Value Called By Crit Value Read Back Blood Gas Notified Time Sodium 144 Potassium 5.5 H Chloride 94 L Carbon Dioxide 16 L Anion Gap 39 H BUN 78 H Creatinine 2.8 H Est GFR ( Amer) 27 Est GFR (Non-Af Amer) 22 POC Glucose (mg/dL) Random Glucose 1108 H* Hemoglobin A1c Lactic Acid Calcium 10.9 H Phosphorus Magnesium Total Bilirubin 1.3 AST 50 ALT 46 Alkaline Phosphatase 133 H Troponin I 0.1070 NT-Pro-B Natriuret Pep Total Protein 9.4 H Albumin 4.5 Globulin 4.9 H Albumin/Globulin Ratio 0.9 L Triglycerides Cholesterol LDL Cholesterol Direct HDL Cholesterol Procalcitonin Free T4 TSH 3rd Generation Venous Blood Potassium Urine Color Urine Clarity Urine pH Ur Specific [place] Urine Protein Urine Glucose (UA) Urine Ketones Urine Blood Urine Nitrate Urine Bilirubin Urine Urobilinogen Ur Leukocyte Esterase Urine WBC (Auto) Urine RBC (Auto) Urine Bacteria Serum Ketones Moderate 06/29/17 06/29/17 06/29/17 07:46 08:00 08:21 WBC RBC Hgb Hct MCV MCH MCHC RDW Plt Count MPV Neut % (Auto) Lymph % (Auto) Evangeline % (Auto) Eos % (Auto) Baso % (Auto) Neut # (Auto) Lymph # (Auto) Ev[place] # (Auto) Eos # (Auto) Baso # (Auto) Neutrophils % (Manual) Band Neutrophils % Lymphocytes % (Manual) Monocytes % (Manual) Platelet Estimate RBC Morphology PT INR APTT pO2 45 VBG pH 7.27 L VBG pCO2 43 VBG HCO3 18.8 VBG Total CO2 21.0 L VBG O2 Sat (Calc) 79.4 H VBG Base Excess -7.0 L VBG Potassium 5.7 H Glucose > 750 H* Lactate 5.1 H* Crit Value Called To Dr gupta Crit Value Called By Monty wright audio visual technician Crit Value Read Back Y Blood Gas Notified Time 750 Sodium 146.0 Potassium Chloride 91.0 L Carbon Dioxide Anion Gap BUN Creatinine Est GFR ( Amer) Est GFR (Non-Af Amer) POC Glucose (mg/dL) Random Glucose Hemoglobin A1c Lactic Acid Calcium Phosphorus 8.2 H Magnesium 3.3 H Total Bilirubin AST ALT Alkaline Phosphatase Troponin I NT-Pro-B Natriuret Pep 356 Total Protein Albumin Globulin Albumin/Globulin Ratio Triglycerides Cholesterol LDL Cholesterol Direct HDL Cholesterol Procalcitonin Free T4 TSH 3rd Generation Venous Blood Potassium 5.7 H Urine Color Yellow Urine Clarity Hazy Urine pH 5.0 Ur Specific [place] 1.026 Urine Protein 1+ H Urine Glucose (UA) 3+ H Urine Ketones Trace Urine Blood 2+ H Urine Nitrate Negative Urine Bilirubin Negative Urine Urobilinogen Normal Ur Leukocyte Esterase Neg Urine WBC (Auto) 1 Urine RBC (Auto) 1 Urine Bacteria Rare Serum Ketones 06/29/17 06/29/17 06/29/17 10:25 10:34 11:13 WBC RBC Hgb Hct MCV MCH MCHC RDW Plt Count MPV Neut % (Auto) Lymph % (Auto) Evangeline % (Auto) Eos % (Auto) Baso % (Auto) Neut # (Auto) Lymph # (Auto) Ev[place] # (Auto) Eos # (Auto) Baso # (Auto) Neutrophils % (Manual) Band Neutrophils % Lymphocytes % (Manual) Monocytes % (Manual) Platelet Estimate RBC Morphology PT INR APTT pO2 VBG pH VBG pCO2 VBG HCO3 VBG Total CO2 VBG O2 Sat (Calc) VBG Base Excess VBG Potassium Glucose Lactate Crit Value Called To Crit Value Called By Crit Value Read Back Blood Gas Notified Time Sodium 158 H Potassium 3.8 Chloride 112 H Carbon Dioxide 22 Anion Gap 28 H BUN 71 H Creatinine 2.0 H Est GFR ( Amer) 40 Est GFR (Non-Af Amer) 33 POC Glucose (mg/dL) > 500 H* 466 H* Random Glucose 522 H* D Hemoglobin A1c Lactic Acid Calcium 9.5 Phosphorus Magnesium Total Bilirubin 1.0 AST 41 ALT 46 Alkaline Phosphatase 96 Troponin I NT-Pro-B Natriuret Pep Total Protein 7.6 Albumin 3.6 Globulin 4.0 H Albumin/Globulin Ratio 0.9 L Triglycerides 299 H Cholesterol 180 LDL Cholesterol Direct 119 HDL Cholesterol 30 Procalcitonin Free T4 TSH 3rd Generation 0.47 Venous Blood Potassium Urine Color Urine Clarity Urine pH Ur Specific [place] Urine Protein Urine Glucose (UA) Urine Ketones Urine Blood Urine Nitrate Urine Bilirubin Urine Urobilinogen Ur Leukocyte Esterase Urine WBC (Auto) Urine RBC (Auto) Urine Bacteria Serum Ketones Moderate 06/29/17 06/29/17 06/29/17 11:13 11:13 11:13 WBC RBC Hgb Hct MCV MCH MCHC RDW Plt Count MPV Neut % (Auto) Lymph % (Auto) [place] % (Auto) Eos % (Auto) Baso % (Auto) Neut # (Auto) Lymph # (Auto) [place] # (Auto) Eos # (Auto) Baso # (Auto) Neutrophils % (Manual) Band Neutrophils % Lymphocytes % (Manual) Monocytes % (Manual) Platelet Estimate RBC Morphology PT INR APTT pO2 VBG pH VBG pCO2 VBG HCO3 VBG Total CO2 VBG O2 Sat (Calc) VBG Base Excess VBG Potassium Glucose Lactate Crit Value Called To Crit Value Called By Crit Value Read Back Blood Gas Notified Time Sodium Potassium Chloride Carbon Dioxide Anion Gap BUN Creatinine Est GFR ( Amer) Est GFR (Non-Af Amer) POC Glucose (mg/dL) Random Glucose Hemoglobin A1c Lactic Acid 3.3 H Calcium Phosphorus Magnesium Total Bilirubin AST ALT Alkaline Phosphatase Troponin I NT-Pro-B Natriuret Pep Total Protein Albumin Globulin Albumin/Globulin Ratio Triglycerides Cholesterol LDL Cholesterol Direct HDL Cholesterol Procalcitonin 0.36 Free T4 1.06 TSH 3rd Generation Venous Blood Potassium Urine Color Urine Clarity Urine pH Ur Specific [place] Urine Protein Urine Glucose (UA) Urine Ketones Urine Blood Urine Nitrate Urine Bilirubin Urine Urobilinogen Ur Leukocyte Esterase Urine WBC (Auto) Urine RBC (Auto) Urine Bacteria Serum Ketones 06/29/17 06/29/17 06/29/17 11:13 11:31 12:32 WBC RBC Hgb Hct MCV MCH MCHC RDW Plt Count MPV Neut % (Auto) Lymph % (Auto) [place] % (Auto) Eos % (Auto) Baso % (Auto) Neut # (Auto) Lymph # (Auto) [place] # (Auto) Eos # (Auto) Baso # (Auto) Neutrophils % (Manual) Band Neutrophils % Lymphocytes % (Manual) Monocytes % (Manual) Platelet Estimate RBC Morphology PT INR APTT pO2 VBG pH VBG pCO2 VBG HCO3 VBG Total CO2 VBG O2 Sat (Calc) VBG Base Excess VBG Potassium Glucose Lactate Crit Value Called To Crit Value Called By Crit Value Read Back Blood Gas Notified Time Sodium Potassium Chloride Carbon Dioxide Anion Gap BUN Creatinine Est GFR ( Amer) Est GFR (Non-Af Amer) POC Glucose (mg/dL) 352 H 281 H Random Glucose Hemoglobin A1c 12.9 H Lactic Acid Calcium Phosphorus Magnesium Total Bilirubin AST ALT Alkaline Phosphatase Troponin I NT-Pro-B Natriuret Pep Total Protein Albumin Globulin Albumin/Globulin Ratio Triglycerides Cholesterol LDL Cholesterol Direct HDL Cholesterol Procalcitonin Free T4 TSH 3rd Generation Venous Blood Potassium Urine Color Urine Clarity Urine pH Ur Specific [place] Urine Protein Urine Glucose (UA) Urine Ketones Urine Blood Urine Nitrate Urine Bilirubin Urine Urobilinogen Ur Leukocyte Esterase Urine WBC (Auto) Urine RBC (Auto) Urine Bacteria Serum Ketones 06/29/17 06/29/17 06/29/17 14:10 15:31 15:36 WBC RBC Hgb Hct MCV MCH MCHC RDW Plt Count MPV Neut % (Auto) Lymph % (Auto) [place] % (Auto) Eos % (Auto) Baso % (Auto) Neut # (Auto) Lymph # (Auto) [place] # (Auto) Eos # (Auto) Baso # (Auto) Neutrophils % (Manual) Band Neutrophils % Lymphocytes % (Manual) Monocytes % (Manual) Platelet Estimate RBC Morphology PT INR APTT pO2 VBG pH VBG pCO2 VBG HCO3 VBG Total CO2 VBG O2 Sat (Calc) VBG Base Excess VBG Potassium Glucose Lactate Crit Value Called To Crit Value Called By Crit Value Read Back Blood Gas Notified Time Sodium 160 H* Potassium 3.4 L Chloride 119 H Carbon Dioxide 27 Anion Gap 17 BUN 61 H Creatinine 1.5 Est GFR ( Amer) 55 Est GFR (Non-Af Amer) 46 POC Glucose (mg/dL) 194 H 124 H Random Glucose 143 H Hemoglobin A1c Lactic Acid Calcium 9.0 Phosphorus Magnesium Total Bilirubin 0.8 AST 53 ALT 41 Alkaline Phosphatase 93 Troponin I NT-Pro-B Natriuret Pep Total Protein 7.6 Albumin 3.4 L Globulin 4.2 H Albumin/Globulin Ratio 0.8 L Triglycerides Cholesterol LDL Cholesterol Direct HDL Cholesterol Procalcitonin Free T4 TSH 3rd Generation Venous Blood Potassium Urine Color Urine Clarity Urine pH Ur Specific [place] Urine Protein Urine Glucose (UA) Urine Ketones Urine Blood Urine Nitrate Urine Bilirubin Urine Urobilinogen Ur Leukocyte Esterase Urine WBC (Auto) Urine RBC (Auto) Urine Bacteria Serum Ketones Small
[2017-06-29 23:21] LABS: ALB/GLOB RATIO 0.8 (1.0-2.1); ALBUMIN 2.5 g/dL (3.5-5.0); ALT/SGPT 46 U/L (21-72); AST/SGOT 73 U/L (17-59); BLOOD UREA NITROGEN 51 mg/dL (9-20); CALCIUM 7.1 mg/dl (8.6-10.4); GFR AFRICAN-AMERICAN 55; GFR NON-AFRICAN AMERICAN 46
[2017-06-29] MEDS ORDERED: (Lantus) Insulin Glargine, Recombinant SC SCH (23:30)
[2017-06-29] MEDS: Sodium Chloride 0.45% 1,000 ML IV SCH (23:34)
[2017-06-30 00:17] LABS: ABG ALLEN TEST POS; ARTERIAL BLOOD GAS HCO3 22.3 mmol/L (21-28); ARTERIAL BLOOD GAS HEMOGLOBIN 16.3 g/dL (11.7-17.4); ARTERIAL BLOOD GAS PCO2 40 mm/Hg (35-45); ARTERIAL BLOOD GAS PH 7.35 (7.35-7.45); ARTERIAL BLOOD GAS PO2 115 mm/Hg (80-100); ARTERIAL BLOOD GAS TCO2 23.3 mmol/L (22-28)
[2017-06-30 06:06] LABS: BASO # 0.2 K/uL (0.0-0.2); BASO % 1.8 % (0.0-2.0); EOS # 0.3 K/uL (0.0-0.7); HEMOGLOBIN 15.5 g/dL (12.0-18.0); LYMPH # 1.6 K/uL (1.0-4.3); LYMPH % 12.7 % (20.0-40.0); MEAN CELL VOLUME 96.3 fL (80.0-94.0); MEAN CORPUSCULAR HEMOGLOBIN 31.8 pg (27.0-31.0); MEAN PLATELET VOLUME 9.7 fL (7.2-11.7); MONO # 0.5 K/uL (0.0-0.8); MONO % 4.2 % (0.0-10.0); NEUT % 79.3 % (50.0-75.0); RBC 4.88 Mil/uL (4.40-5.90); RED CELL DISTRIBUTION WIDTH 13.1 % (11.5-14.5); WHITE BLOOD COUNT 12.6 K/uL (4.8-10.8)
[2017-06-30] MEDS: (Novolog) Insulin Aspart, Recombinant 100 u/ml 10 ml vial SC SCH ×4 (06:18→22:10)
[2017-06-30 06:29] LABS: ALB/GLOB RATIO 0.8 (1.0-2.1); ALBUMIN 2.8 g/dL (3.5-5.0); CALCIUM 7.9 mg/dl (8.6-10.4)
[2017-06-30] MEDS: Sodium Chloride 0.45% 1,000 ML IV SCH ×2 (06:42→15:59)
[2017-06-30] MEDS: Piperacill/Tazo 2.25gm in Dex 2.25 GM/50 ML BAG IVPB SCH ×3 (07:43→23:00)
--- NOTE | 2017-06-30 10:41 | CP.CCUPN ---
<Lelo Perez - Last Filed: 06/30/17 10:54> CCU Subjective - Physician Review Subjective (Free Text): 06/30/17 10:39 Patient seen and examined at bedside. Per nursing, patient was disimpacted last night. Has not had a BM since then. Currently patient is speaking, speech is unclear. Offers no complaints at this time. CCU Objective - Vital Signs / Intake & Output Vital Signs (Last 4 hours): Vital Signs Temp Pulse Resp BP Pulse Ox 06/30/17 10:00 85 22 93 L 06/30/17 09:55 82 20 149/62 94 L 06/30/17 09:00 85 19 93 L 06/30/17 08:54 85 17 113/56 L 93 L 06/30/17 08:00 98.6 F 84 19 95 06/30/17 07:55 84 13 134/70 94 L 06/30/17 07:00 77 19 94 L 06/30/17 06:54 78 18 95/52 L 94 L Intake and Output (Last 8hrs): Intake & Output 06/29/17 06/30/17 06/30/17 22:59 06:59 14:59 Intake Total 2107 1250 675 Output Total 295 580 275 Balance 1812 670 400 Weight 59.619 kg Intake: Intake, IV Amount 2107 1250 675 Left Antecubital 1650 1200 675 Right Antecubital 457 50 0 Output: Urine 295 580 275 Urethral (Romano) 295 580 275 Other: # Bowel Movements 1 - Physical Exam Head: Positive for: Atraumatic, Normocephalic Pupils: Positive for: Other (Patient is blind ) Extroacular Muscles: Positive for: EOMI Conjunctiva: Positive for: Normal Ears: Positive for: Other (Hearing aid in right ear) Mouth: Positive for: Moist Mucous Membranes Respiratory/Chest: Positive for: Clear to Auscultation, Good Air Exchange. Negative for: Respiratory Distress, Accessory Muscle Use Cardiovascular: Positive for: Regular Rate and Rhythm, Normal S1, S2 Abdomen: Positive for: Normal Bowel Sounds. Negative for: Tenderness Upper Extremity: Positive for: Normal Inspection Lower Extremity: Positive for: Normal Inspection Skin: Positive for: Warm, Dry, Normal Color Psychiatric: Positive for: Alert - Medications Active Medications: Active Medications Generic Name Dose Route Start Last Admin Trade Name Freq PRN Reason Stop Dose Admin Aspirin 81 mg 06/30/17 10:00 06/30/17 09:50 Ecotrin PO 81 mg DAILY ROYCE Administration Famotidine 20 mg 06/29/17 10:15 06/30/17 09:49 Pepcid IVP 20 mg DAILY ROYCE Administration Heparin Sodium (Porcine) 5,000 units 06/29/17 10:15 06/30/17 09:49 Heparin SC 5,000 units Q12 ROYCE Administration Vancomycin/Sodium Chloride 1 gm in 200 mls @ 133.333 mls/hr 06/29/17 12:00 12:09 Vancomycin 1 Gm/Ns 200 Ml IVPB Not Given Q24H [facility] [place] Protocol Piperacillin Sod/Tazobactam Sod 2.25 gm in 50 mls @ 100 mls/hr 06/29/17 16:00 06/30/17 07:43 Zosyn 2.25 Gm Iv Premix IVPB 100 mls/hr Q8H [facility] Administration Protocol Sodium Chloride 1,000 mls @ 125 mls/hr 06/29/17 23:30 06/30/17 06:42 Sodium Chloride 0.45% IV 125 mls/hr .Q8H [facility] [place] Administration Insulin Aspart 7 unit 06/30/17 11:30 Novolog SC [facility] [place] Insulin Glargine 15 unit 06/30/17 22:[address] [facility] Levothyroxine Sodium 25 mcg 07/01/17 06:30 Synthroid PO DAILY@0630 [facility] Rosuvastatin Calcium 5 mg 06/30/17 22:[address] [facility] - Patient Studies Lab Studies: Microbiology Studies 06/29/17 07:43 Urine Culture - Final Urine No Growth (<1,000 CFU/ML) Lab Studies 06/30/17 06/30/17 06/30/17 Range/Units 07:33 05:57 05:50 WBC 12.6 H (4.8-10.8) K/uL RBC 4.88 (4.40-5.90) Mil/uL Hgb 15.5 D (12.0-18.0) g/dL Hct 47.0 (35.0-51.0) % MCV 96.3 H D (80.0-94.0) fL MCH 31.8 H (27.0-31.0) pg MCHC 33.0 (33.0-37.0) g/dL RDW 13.1 (11.5-14.5) % Plt Count 137 D (130-400) K/uL MPV 9.7 (7.2-11.7) fL Neut % (Auto) 79.3 H (50.0-75.0) % Lymph % (Auto) 12.7 L (20.0-40.0) % [place] % (Auto) 4.2 (0.0-10.0) % Eos % (Auto) 2.0 (0.0-4.0) % Baso % (Auto) 1.8 (0.0-2.0) % Neut # (Auto) 10.0 H (1.8-7.0) K/uL Lymph # (Auto) 1.6 (1.0-4.3) K/uL [place] # (Auto) 0.5 (0.0-0.8) K/uL Eos # (Auto) 0.3 (0.0-0.7) K/uL Baso # (Auto) 0.2 (0.0-0.2) K/uL Puncture Site pCO2 (35-45) mm/Hg pO2 (80-100) mm/Hg HCO3 (21-28) mmol/L ABG pH (7.35-7.45) ABG Total CO2 (22-28) mmol/L ABG O2 Saturation (95-98) % ABG Base Excess (-2.0-3.0) mmol/L ABG Hemoglobin (11.7-17.4) g/dL ABG Carboxyhemoglobin (0.5-1.5) % POC ABG HHb (Measured) (0.0-5.0) % ABG Methemoglobin (0.0-3.0) % Aditya Test Hgb O2 Saturation (95.0-98.0) % Liter Flow Sodium 150 H (132-148) mmol/L Potassium 4.3 (3.6-5.2) mmol/L Chloride 114 H (98-107) mmol/L Carbon Dioxide 24 (22-30) mmol/L Anion Gap 17 (10-20) BUN 53 H (9-20) mg/dL Creatinine 1.6 H (0.8-1.5) mg/dL Est GFR ( Amer) 51 Est GFR (Non-Af Amer) 42 POC Glucose (mg/dL) 247 H (65-110) mg/dL Random Glucose 244 H (75-110) mg/dL Hemoglobin A1c (4.2-6.5) % Lactic Acid (0.7-2.1) mmol/L Calcium 7.9 L (8.6-10.4) mg/dl Phosphorus 2.4 L (2.5-4.5) mg/dL Magnesium 2.3 (1.6-2.3) mg/dL Total Bilirubin 0.8 (0.2-1.3) mg/dL AST 94 H D (17-59) U/L ALT 53 (21-72) U/L Alkaline Phosphatase 65 (38-126) U/L Total Protein 6.3 (6.3-8.3) g/dL Albumin 2.8 L (3.5-5.0) g/dL Globulin 3.5 (2.2-3.9) gm/dL Albumin/Globulin Ratio 0.8 L (1.0-2.1) Triglycerides (0-149) mg/dL Cholesterol (0-199) mg/dL LDL Cholesterol Direct (0-129) mg/dL HDL Cholesterol (30-70) mg/dL Procalcitonin (0.19-0.49) NG/ML Free T4 (0.78-2.19) ng/dL TSH 3rd Generation (0.46-4.68) mIU/L Serum Ketones (NEGATIVE) 06/30/17 06/30/17 06/29/17 Range/Units 05:16 00:02 22:55 WBC (4.8-10.8) K/uL RBC (4.40-5.90) Mil/uL Hgb (12.0-18.0) g/dL Hct (35.0-51.0) % MCV (80.0-94.0) fL MCH (27.0-31.0) pg MCHC (33.0-37.0) g/dL RDW (11.5-14.5) % Plt Count (130-400) K/uL MPV (7.2-11.7) fL Neut % (Auto) (50.0-75.0) % Lymph % (Auto) (20.0-40.0) % [place] % (Auto) (0.0-10.0) % Eos % (Auto) (0.0-4.0) % Baso % (Auto) (0.0-2.0) % Neut # (Auto) (1.8-7.0) K/uL Lymph # (Auto) (1.0-4.3) K/uL [place] # (Auto) (0.0-0.8) K/uL Eos # (Auto) (0.0-0.7) K/uL Baso # (Auto) (0.0-0.2) K/uL Puncture Site Rr pCO2 40 (35-45) mm/Hg pO2 115 H (80-100) mm/Hg HCO3 22.3 (21-28) mmol/L ABG pH 7.35 (7.35-7.45) ABG Total CO2 23.3 (22-28) mmol/L ABG O2 Saturation 98.0 (95-98) % ABG Base Excess -3.3 L (-2.0-3.0) mmol/L ABG Hemoglobin 16.3 (11.7-17.4) g/dL ABG Carboxyhemoglobin 1.1 (0.5-1.5) % POC ABG HHb (Measured) 2.0 (0.0-5.0) % ABG Methemoglobin 0.8 (0.0-3.0) % Aditya Test Pos Hgb O2 Saturation 96.0 (95.0-98.0) % Liter Flow 3.0 Sodium 150 H (132-148) mmol/L Potassium 4.0 (3.6-5.2) mmol/L Chloride 113 H (98-107) mmol/L Carbon Dioxide 20 L (22-30) mmol/L Anion Gap 21 H (10-20) BUN 51 H (9-20) mg/dL Creatinine 1.5 (0.8-1.5) mg/dL Est GFR ( Amer) 55 Est GFR (Non-Af Amer) 46 POC Glucose (mg/dL) 240 H (65-110) mg/dL Random Glucose 446 H* D (75-110) mg/dL Hemoglobin A1c (4.2-6.5) % Lactic Acid (0.7-2.1) mmol/L Calcium 7.1 L (8.6-10.4) mg/dl Phosphorus (2.5-4.5) mg/dL Magnesium (1.6-2.3) mg/dL Total Bilirubin 0.7 (0.2-1.3) mg/dL AST 73 H D (17-59) U/L ALT 46 (21-72) U/L Alkaline Phosphatase 59 (38-126) U/L Total Protein 5.7 L (6.3-8.3) g/dL Albumin 2.5 L D (3.5-5.0) g/dL Globulin 3.2 (2.2-3.9) gm/dL Albumin/Globulin Ratio 0.8 L (1.0-2.1) Triglycerides (0-149) mg/dL Cholesterol (0-199) mg/dL LDL Cholesterol Direct (0-129) mg/dL HDL Cholesterol (30-70) mg/dL Procalcitonin (0.19-0.49) NG/ML Free T4 (0.78-2.19) ng/dL TSH 3rd Generation (0.46-4.68) mIU/L Serum Ketones Moderate (NEGATIVE) 06/29/17 06/29/17 06/29/17 Range/Units 21:03 17:07 15:36 WBC (4.8-10.8) K/uL RBC (4.40-5.90) Mil/uL Hgb (12.0-18.0) g/dL Hct (35.0-51.0) % MCV (80.0-94.0) fL MCH (27.0-31.0) pg MCHC (33.0-37.0) g/dL RDW (11.5-14.5) % Plt Count (130-400) K/uL MPV (7.2-11.7) fL Neut % (Auto) (50.0-75.0) % Lymph % (Auto) (20.0-40.0) % [place] % (Auto) (0.0-10.0) % Eos % (Auto) (0.0-4.0) % Baso % (Auto) (0.0-2.0) % Neut # (Auto) (1.8-7.0) K/uL Lymph # (Auto) (1.0-4.3) K/uL [place] # (Auto) (0.0-0.8) K/uL Eos # (Auto) (0.0-0.7) K/uL Baso # (Auto) (0.0-0.2) K/uL Puncture Site pCO2 (35-45) mm/Hg pO2 (80-100) mm/Hg HCO3 (21-28) mmol/L ABG pH (7.35-7.45) ABG Total CO2 (22-28) mmol/L ABG O2 Saturation (95-98) % ABG Base Excess (-2.0-3.0) mmol/L ABG Hemoglobin (11.7-17.4) g/dL ABG Carboxyhemoglobin (0.5-1.5) % POC ABG HHb (Measured) (0.0-5.0) % ABG Methemoglobin (0.0-3.0) % Aditya Test Hgb O2 Saturation (95.0-98.0) % Liter Flow Sodium (132-148) mmol/L Potassium (3.6-5.2) mmol/L Chloride (98-107) mmol/L Carbon Dioxide (22-30) mmol/L Anion Gap (10-20) BUN (9-20) mg/dL Creatinine (0.8-1.5) mg/dL Est GFR ( Amer) Est GFR (Non-Af Amer) POC Glucose (mg/dL) 359 H 137 H 124 H (65-110) mg/dL Random Glucose (75-110) mg/dL Hemoglobin A1c (4.2-6.5) % Lactic Acid (0.7-2.1) mmol/L Calcium (8.6-10.4) mg/dl Phosphorus (2.5-4.5) mg/dL Magnesium (1.6-2.3) mg/dL Total Bilirubin (0.2-1.3) mg/dL AST (17-59) U/L ALT (21-72) U/L Alkaline Phosphatase (38-126) U/L Total Protein (6.3-8.3) g/dL Albumin (3.5-5.0) g/dL Globulin (2.2-3.9) gm/dL Albumin/Globulin Ratio (1.0-2.1) Triglycerides (0-149) mg/dL Cholesterol (0-199) mg/dL LDL Cholesterol Direct (0-129) mg/dL HDL Cholesterol (30-70) mg/dL Procalcitonin (0.19-0.49) NG/ML Free T4 (0.78-2.19) ng/dL TSH 3rd Generation (0.46-4.68) mIU/L Serum Ketones (NEGATIVE) 06/29/17 06/29/17 06/29/17 Range/Units 15:31 14:10 12:32 WBC (4.8-10.8) K/uL RBC (4.40-5.90) Mil/uL Hgb (12.0-18.0) g/dL Hct (35.0-51.0) % MCV (80.0-94.0) fL MCH (27.0-31.0) pg MCHC (33.0-37.0) g/dL RDW (11.5-14.5) % Plt Count (130-400) K/uL MPV (7.2-11.7) fL Neut % (Auto) (50.0-75.0) % Lymph % (Auto) (20.0-40.0) % [place] % (Auto) (0.0-10.0) % Eos % (Auto) (0.0-4.0) % Baso % (Auto) (0.0-2.0) % Neut # (Auto) (1.8-7.0) K/uL Lymph # (Auto) (1.0-4.3) K/uL [place] # (Auto) (0.0-0.8) K/uL Eos # (Auto) (0.0-0.7) K/uL Baso # (Auto) (0.0-0.2) K/uL Puncture Site pCO2 (35-45) mm/Hg pO2 (80-100) mm/Hg HCO3 (21-28) mmol/L ABG pH (7.35-7.45) ABG Total CO2 (22-28) mmol/L ABG O2 Saturation (95-98) % ABG Base Excess (-2.0-3.0) mmol/L ABG Hemoglobin (11.7-17.4) g/dL ABG Carboxyhemoglobin (0.5-1.5) % POC ABG HHb (Measured) (0.0-5.0) % ABG Methemoglobin (0.0-3.0) % Aditya Test Hgb O2 Saturation (95.0-98.0) % Liter Flow Sodium 160 H* (132-148) mmol/L Potassium 3.4 L (3.6-5.2) mmol/L Chloride 119 H (98-107) mmol/L Carbon Dioxide 27 (22-30) mmol/L Anion Gap 17 (10-20) BUN 61 H (9-20) mg/dL Creatinine 1.5 (0.8-1.5) mg/dL Est GFR ( Amer) 55 Est GFR (Non-Af Amer) 46 POC Glucose (mg/dL) 194 H 281 H (65-110) mg/dL Random Glucose 143 H (75-110) mg/dL Hemoglobin A1c (4.2-6.5) % Lactic Acid (0.7-2.1) mmol/L Calcium 9.0 (8.6-10.4) mg/dl Phosphorus (2.5-4.5) mg/dL Magnesium (1.6-2.3) mg/dL Total Bilirubin 0.8 (0.2-1.3) mg/dL AST 53 (17-59) U/L ALT 41 (21-72) U/L Alkaline Phosphatase 93 (38-126) U/L Total Protein 7.6 (6.3-8.3) g/dL Albumin 3.4 L (3.5-5.0) g/dL Globulin 4.2 H (2.2-3.9) gm/dL Albumin/Globulin Ratio 0.8 L (1.0-2.1) Triglycerides (0-149) mg/dL Cholesterol (0-199) mg/dL LDL Cholesterol Direct (0-129) mg/dL HDL Cholesterol (30-70) mg/dL Procalcitonin (0.19-0.49) NG/ML Free T4 (0.78-2.19) ng/dL TSH 3rd Generation (0.46-4.68) mIU/L Serum Ketones Small (NEGATIVE) 06/29/17 06/29/17 06/29/17 Range/Units 11:31 11:13 11:13 WBC (4.8-10.8) K/uL RBC (4.40-5.90) Mil/uL Hgb (12.0-18.0) g/dL Hct (35.0-51.0) % MCV (80.0-94.0) fL MCH (27.0-31.0) pg MCHC (33.0-37.0) g/dL RDW (11.5-14.5) % Plt Count (130-400) K/uL MPV (7.2-11.7) fL Neut % (Auto) (50.0-75.0) % Lymph % (Auto) (20.0-40.0) % [place] % (Auto) (0.0-10.0) % Eos % (Auto) (0.0-4.0) % Baso % (Auto) (0.0-2.0) % Neut # (Auto) (1.8-7.0) K/uL Lymph # (Auto) (1.0-4.3) K/uL [place] # (Auto) (0.0-0.8) K/uL Eos # (Auto) (0.0-0.7) K/uL Baso # (Auto) (0.0-0.2) K/uL Puncture Site pCO2 (35-45) mm/Hg pO2 (80-100) mm/Hg HCO3 (21-28) mmol/L ABG pH (7.35-7.45) ABG Total CO2 (22-28) mmol/L ABG O2 Saturation (95-98) % ABG Base Excess (-2.0-3.0) mmol/L ABG Hemoglobin (11.7-17.4) g/dL ABG Carboxyhemoglobin (0.5-1.5) % POC ABG HHb (Measured) (0.0-5.0) % ABG Methemoglobin (0.0-3.0) % Aditya Test Hgb O2 Saturation (95.0-98.0) % Liter Flow Sodium (132-148) mmol/L Potassium (3.6-5.2) mmol/L Chloride (98-107) mmol/L Carbon Dioxide (22-30) mmol/L Anion Gap (10-20) BUN (9-20) mg/dL Creatinine (0.8-1.5) mg/dL Est GFR ( Amer) Est GFR (Non-Af Amer) POC Glucose (mg/dL) 352 H (65-110) mg/dL Random Glucose (75-110) mg/dL Hemoglobin A1c 12.9 H (4.2-6.5) % Lactic Acid 3.3 H (0.7-2.1) mmol/L Calcium (8.6-10.4) mg/dl Phosphorus (2.5-4.5) mg/dL Magnesium (1.6-2.3) mg/dL Total Bilirubin (0.2-1.3) mg/dL AST (17-59) U/L ALT (21-72) U/L Alkaline Phosphatase (38-126) U/L Total Protein (6.3-8.3) g/dL Albumin (3.5-5.0) g/dL Globulin (2.2-3.9) gm/dL Albumin/Globulin Ratio (1.0-2.1) Triglycerides (0-149) mg/dL Cholesterol (0-199) mg/dL LDL Cholesterol Direct (0-129) mg/dL HDL Cholesterol (30-70) mg/dL Procalcitonin (0.19-0.49) NG/ML Free T4 (0.78-2.19) ng/dL TSH 3rd Generation (0.46-4.68) mIU/L Serum Ketones (NEGATIVE) 06/29/17 06/29/17 06/29/17 Range/Units 11:13 11:13 11:13 WBC (4.8-10.8) K/uL RBC (4.40-5.90) Mil/uL Hgb (12.0-18.0) g/dL Hct (35.0-51.0) % MCV (80.0-94.0) fL MCH (27.0-31.0) pg MCHC (33.0-37.0) g/dL RDW (11.5-14.5) % Plt Count (130-400) K/uL MPV (7.2-11.7) fL Neut % (Auto) (50.0-75.0) % Lymph % (Auto) (20.0-40.0) % [place] % (Auto) (0.0-10.0) % Eos % (Auto) (0.0-4.0) % Baso % (Auto) (0.0-2.0) % Neut # (Auto) (1.8-7.0) K/uL Lymph # (Auto) (1.0-4.3) K/uL [place] # (Auto) (0.0-0.8) K/uL Eos # (Auto) (0.0-0.7) K/uL Baso # (Auto) (0.0-0.2) K/uL Puncture Site pCO2 (35-45) mm/Hg pO2 (80-100) mm/Hg HCO3 (21-28) mmol/L ABG pH (7.35-7.45) ABG Total CO2 (22-28) mmol/L ABG O2 Saturation (95-98) % ABG Base Excess (-2.0-3.0) mmol/L ABG Hemoglobin (11.7-17.4) g/dL ABG Carboxyhemoglobin (0.5-1.5) % POC ABG HHb (Measured) (0.0-5.0) % ABG Methemoglobin (0.0-3.0) % Aditya Test Hgb O2 Saturation (95.0-98.0) % Liter Flow Sodium 158 H (132-148) mmol/L Potassium 3.8 (3.6-5.2) mmol/L Chloride 112 H (98-107) mmol/L Carbon Dioxide 22 (22-30) mmol/L Anion Gap 28 H (10-20) BUN 71 H (9-20) mg/dL Creatinine 2.0 H (0.8-1.5) mg/dL Est GFR ( Amer) 40 Est GFR (Non-Af Amer) 33 POC Glucose (mg/dL) (65-110) mg/dL Random Glucose 522 H* D (75-110) mg/dL Hemoglobin A1c (4.2-6.5) % Lactic Acid (0.7-2.1) mmol/L Calcium 9.5 (8.6-10.4) mg/dl Phosphorus (2.5-4.5) mg/dL Magnesium (1.6-2.3) mg/dL Total Bilirubin 1.0 (0.2-1.3) mg/dL AST 41 (17-59) U/L ALT 46 (21-72) U/L Alkaline Phosphatase 96 (38-126) U/L Total Protein 7.6 (6.3-8.3) g/dL Albumin 3.6 (3.5-5.0) g/dL Globulin 4.0 H (2.2-3.9) gm/dL Albumin/Globulin Ratio 0.9 L (1.0-2.1) Triglycerides 299 H (0-149) mg/dL Cholesterol 180 (0-199) mg/dL LDL Cholesterol Direct 119 (0-129) mg/dL HDL Cholesterol 30 (30-70) mg/dL Procalcitonin 0.36 (0.19-0.49) NG/ML Free T4 1.06 (0.78-2.19) ng/dL TSH 3rd Generation 0.47 (0.46-4.68) mIU/L Serum Ketones Moderate (NEGATIVE) 06/29/17 Range/Units 10:34 WBC (4.8-10.8) K/uL RBC (4.40-5.90) Mil/uL Hgb (12.0-18.0) g/dL Hct (35.0-51.0) % MCV (80.0-94.0) fL MCH (27.0-31.0) pg MCHC (33.0-37.0) g/dL RDW (11.5-14.5) % Plt Count (130-400) K/uL MPV (7.2-11.7) fL Neut % (Auto) (50.0-75.0) % Lymph % (Auto) (20.0-40.0) % [place] % (Auto) (0.0-10.0) % Eos % (Auto) (0.0-4.0) % Baso % (Auto) (0.0-2.0) % Neut # (Auto) (1.8-7.0) K/uL Lymph # (Auto) (1.0-4.3) K/uL [place] # (Auto) (0.0-0.8) K/uL Eos # (Auto) (0.0-0.7) K/uL Baso # (Auto) (0.0-0.2) K/uL Puncture Site pCO2 (35-45) mm/Hg pO2 (80-100) mm/Hg HCO3 (21-28) mmol/L ABG pH (7.35-7.45) ABG Total CO2 (22-28) mmol/L ABG O2 Saturation (95-98) % ABG Base Excess (-2.0-3.0) mmol/L ABG Hemoglobin (11.7-17.4) g/dL ABG Carboxyhemoglobin (0.5-1.5) % POC ABG HHb (Measured) (0.0-5.0) % ABG Methemoglobin (0.0-3.0) % Aditya Test Hgb O2 Saturation (95.0-98.0) % Liter Flow Sodium (132-148) mmol/L Potassium (3.6-5.2) mmol/L Chloride (98-107) mmol/L Carbon Dioxide (22-30) mmol/L Anion Gap (10-20) BUN (9-20) mg/dL Creatinine (0.8-1.5) mg/dL Est GFR ( Amer) Est GFR (Non-Af Amer) POC Glucose (mg/dL) 466 H* (65-110) mg/dL Random Glucose (75-110) mg/dL Hemoglobin A1c (4.2-6.5) % Lactic Acid (0.7-2.1) mmol/L Calcium (8.6-10.4) mg/dl Phosphorus (2.5-4.5) mg/dL Magnesium (1.6-2.3) mg/dL Total Bilirubin (0.2-1.3) mg/dL AST (17-59) U/L ALT (21-72) U/L Alkaline Phosphatase (38-126) U/L Total Protein (6.3-8.3) g/dL Albumin (3.5-5.0) g/dL Globulin (2.2-3.9) gm/dL Albumin/Globulin Ratio (1.0-2.1) Triglycerides (0-149) mg/dL Cholesterol (0-199) mg/dL LDL Cholesterol Direct (0-129) mg/dL HDL Cholesterol (30-70) mg/dL Procalcitonin (0.19-0.49) NG/ML Free T4 (0.78-2.19) ng/dL TSH 3rd Generation (0.46-4.68) mIU/L Serum Ketones (NEGATIVE) Laboratory Results - last 24 hr 06/29/17 06/29/17 06/29/17 10:34 11:13 11:13 WBC RBC Hgb Hct MCV MCH MCHC RDW Plt Count MPV Neut % (Auto) Lymph % (Auto) [place] % (Auto) Eos % (Auto) Baso % (Auto) Neut # (Auto) Lymph # (Auto) [place] # (Auto) Eos # (Auto) Baso # (Auto) Puncture Site pCO2 pO2 HCO3 ABG pH ABG Total CO2 ABG O2 Saturation ABG Base Excess ABG Hemoglobin ABG Carboxyhemoglobin POC ABG HHb (Measured) ABG Methemoglobin Aditya Test Hgb O2 Saturation Liter Flow Sodium 158 H Potassium 3.8 Chloride 112 H Carbon Dioxide 22 Anion Gap 28 H BUN 71 H Creatinine 2.0 H Est GFR ( Amer) 40 Est GFR (Non-Af Amer) 33 POC Glucose (mg/dL) 466 H* Random Glucose 522 H* D Hemoglobin A1c Lactic Acid Calcium 9.5 Phosphorus Magnesium Total Bilirubin 1.0 AST 41 ALT 46 Alkaline Phosphatase 96 Total Protein 7.6 Albumin 3.6 Globulin 4.0 H Albumin/Globulin Ratio 0.9 L Triglycerides 299 H Cholesterol 180 LDL Cholesterol Direct 119 HDL Cholesterol 30 Procalcitonin Free T4 1.06 TSH 3rd Generation 0.47 Serum Ketones Moderate 06/29/17 06/29/17 06/29/17 11:13 11:13 11:13 WBC RBC Hgb Hct MCV MCH MCHC RDW Plt Count MPV Neut % (Auto) Lymph % (Auto) [place] % (Auto) Eos % (Auto) Baso % (Auto) Neut # (Auto) Lymph # (Auto) [place] # (Auto) Eos # (Auto) Baso # (Auto) Puncture Site pCO2 pO2 HCO3 ABG pH ABG Total CO2 ABG O2 Saturation ABG Base Excess ABG Hemoglobin ABG Carboxyhemoglobin POC ABG HHb (Measured) ABG Methemoglobin Aditya Test Hgb O2 Saturation Liter Flow Sodium Potassium Chloride Carbon Dioxide Anion Gap BUN Creatinine Est GFR ( Amer) Est GFR (Non-Af Amer) POC Glucose (mg/dL) Random Glucose Hemoglobin A1c 12.9 H Lactic Acid 3.3 H Calcium Phosphorus Magnesium Total Bilirubin AST ALT Alkaline Phosphatase Total Protein Albumin Globulin Albumin/Globulin Ratio Triglycerides Cholesterol LDL Cholesterol Direct HDL Cholesterol Procalcitonin 0.36 Free T4 TSH 3rd Generation Serum Ketones 06/29/17 06/29/17 06/29/17 11:31 12:32 14:10 WBC RBC Hgb Hct MCV MCH MCHC RDW Plt Count MPV Neut % (Auto) Lymph % (Auto) [place] % (Auto) Eos % (Auto) Baso % (Auto) Neut # (Auto) Lymph # (Auto) [place] # (Auto) Eos # (Auto) Baso # (Auto) Puncture Site pCO2 pO2 HCO3 ABG pH ABG Total CO2 ABG O2 Saturation ABG Base Excess ABG Hemoglobin ABG Carboxyhemoglobin POC ABG HHb (Measured) ABG Methemoglobin Aditya Test Hgb O2 Saturation Liter Flow Sodium Potassium Chloride Carbon Dioxide Anion Gap BUN Creatinine Est GFR ( Amer) Est GFR (Non-Af Amer) POC Glucose (mg/dL) 352 H 281 H 194 H Random Glucose Hemoglobin A1c Lactic Acid Calcium Phosphorus Magnesium Total Bilirubin AST ALT Alkaline Phosphatase Total Protein Albumin Globulin Albumin/Globulin Ratio Triglycerides Cholesterol LDL Cholesterol Direct HDL Cholesterol Procalcitonin Free T4 TSH 3rd Generation Serum Ketones 06/29/17 06/29/17 06/29/17 15:31 15:36 17:07 WBC RBC Hgb Hct MCV MCH MCHC RDW Plt Count MPV Neut % (Auto) Lymph % (Auto) [place] % (Auto) Eos % (Auto) Baso % (Auto) Neut # (Auto) Lymph # (Auto) [place] # (Auto) Eos # (Auto) Baso # (Auto) Puncture Site pCO2 pO2 HCO3 ABG pH ABG Total CO2 ABG O2 Saturation ABG Base Excess ABG Hemoglobin ABG Carboxyhemoglobin POC ABG HHb (Measured) ABG Methemoglobin Aditya Test Hgb O2 Saturation Liter Flow Sodium 160 H* Potassium 3.4 L Chloride 119 H Carbon Dioxide 27 Anion Gap 17 BUN 61 H Creatinine 1.5 Est GFR ( Amer) 55 Est GFR (Non-Af Amer) 46 POC Glucose (mg/dL) 124 H 137 H Random Glucose 143 H Hemoglobin A1c Lactic Acid Calcium 9.0 Phosphorus Magnesium Total Bilirubin 0.8 AST 53 ALT 41 Alkaline Phosphatase 93 Total Protein 7.6 Albumin 3.4 L Globulin 4.2 H Albumin/Globulin Ratio 0.8 L Triglycerides Cholesterol LDL Cholesterol Direct HDL Cholesterol Procalcitonin Free T4 TSH 3rd Generation Serum Ketones Small 06/29/17 06/29/17 06/30/17 21:03 22:55 00:02 WBC RBC Hgb Hct MCV MCH MCHC RDW Plt Count MPV Neut % (Auto) Lymph % (Auto) [place] % (Auto) Eos % (Auto) Baso % (Auto) Neut # (Auto) Lymph # (Auto) [place] # (Auto) Eos # (Auto) Baso # (Auto) Puncture Site Rr pCO2 40 pO2 115 H HCO3 22.3 ABG pH 7.35 ABG Total CO2 23.3 ABG O2 Saturation 98.0 ABG Base Excess -3.3 L ABG Hemoglobin 16.3 ABG Carboxyhemoglobin 1.1 POC ABG HHb (Measured) 2.0 ABG Methemoglobin 0.8 Aditya Test Pos Hgb O2 Saturation 96.0 Liter Flow 3.0 Sodium 150 H Potassium 4.0 Chloride 113 H Carbon Dioxide 20 L Anion Gap 21 H BUN 51 H Creatinine 1.5 Est GFR ( Amer) 55 Est GFR (Non-Af Amer) 46 POC Glucose (mg/dL) 359 H Random Glucose 446 H* D Hemoglobin A1c Lactic Acid Calcium 7.1 L Phosphorus Magnesium Total Bilirubin 0.7 AST 73 H D ALT 46 Alkaline Phosphatase 59 Total Protein 5.7 L Albumin 2.5 L D Globulin 3.2 Albumin/Globulin Ratio 0.8 L Triglycerides Cholesterol LDL Cholesterol Direct HDL Cholesterol Procalcitonin Free T4 TSH 3rd Generation Serum Ketones Moderate 06/30/17 06/30/17 06/30/17 05:16 05:50 05:57 WBC 12.6 H RBC 4.88 Hgb 15.5 D Hct 47.0 MCV 96.3 H D MCH 31.8 H MCHC 33.0 RDW 13.1 Plt Count 137 D MPV 9.7 Neut % (Auto) 79.3 H Lymph % (Auto) 12.7 L [place] % (Auto) 4.2 Eos % (Auto) 2.0 Baso % (Auto) 1.8 Neut # (Auto) 10.0 H Lymph # (Auto) 1.6 [place] # (Auto) 0.5 Eos # (Auto) 0.3 Baso # (Auto) 0.2 Puncture Site pCO2 pO2 HCO3 ABG pH ABG Total CO2 ABG O2 Saturation ABG Base Excess ABG Hemoglobin ABG Carboxyhemoglobin POC ABG HHb (Measured) ABG Methemoglobin Aditya Test Hgb O2 Saturation Liter Flow Sodium 150 H Potassium 4.3 Chloride 114 H Carbon Dioxide 24 Anion Gap 17 BUN 53 H Creatinine 1.6 H Est GFR ( Amer) 51 Est GFR (Non-Af Amer) 42 POC Glucose (mg/dL) 240 H Random Glucose 244 H Hemoglobin A1c Lactic Acid Calcium 7.9 L Phosphorus 2.4 L Magnesium 2.3 Total Bilirubin 0.8 AST 94 H D ALT 53 Alkaline Phosphatase 65 Total Protein 6.3 Albumin 2.8 L Globulin 3.5 Albumin/Globulin Ratio 0.8 L Triglycerides Cholesterol LDL Cholesterol Direct HDL Cholesterol Procalcitonin Free T4 TSH 3rd Generation Serum Ketones 06/30/17 07:33 WBC RBC Hgb Hct MCV MCH MCHC RDW Plt Count MPV Neut % (Auto) Lymph % (Auto) [place] % (Auto) Eos % (Auto) Baso % (Auto) Neut # (Auto) Lymph # (Auto) [place] # (Auto) Eos # (Auto) Baso # (Auto) Puncture Site pCO2 pO2 HCO3 ABG pH ABG Total CO2 ABG O2 Saturation ABG Base Excess ABG Hemoglobin ABG Carboxyhemoglobin POC ABG HHb (Measured) ABG Methemoglobin Aditya Test Hgb O2 Saturation Liter Flow Sodium Potassium Chloride Carbon Dioxide Anion Gap BUN Creatinine Est GFR ( Amer) Est GFR (Non-Af Amer) POC Glucose (mg/dL) 247 H Random Glucose Hemoglobin A1c Lactic Acid Calcium Phosphorus Magnesium Total Bilirubin AST ALT Alkaline Phosphatase Total Protein Albumin Globulin Albumin/Globulin Ratio Triglycerides Cholesterol LDL Cholesterol Direct HDL Cholesterol Procalcitonin Free T4 TSH 3rd Generation Serum Ketones Fingerstick Blood Sugar Results: 240 Critical Care Progress Note - Nutrition Nutrition: Nutrition Category Date Time Status Dysphagia/Modified Consistency Diet [DIET] Diets 06/30/17 Breakfast Active Assessment/Plan - Assessment and Plan (Free Text) Assessment: Patient is a 72 year old male with past medical history of BPH, hypothyroidism who presented with decreased appetite x 3 days, generalized weakness and unstable gait. Code sepsis was called in the ED. Source unknown at this time. Neurology: -Patient is AAOx2 (person and place) -CT head: No acute intracranial abnormality. Old lacunar infarction in the right last radiata. Mild chronic microangiopathic changes and moderate age- related global parenchymal volume loss -Aspiration precautions, Fall precautions -Physical therapy/Occupational therapy ordered Cardiology: -Tachycardia resolved -TSH and Free T4 within normal limits -Will restart Synthroid 25mcg PO daily -Started on Crestor 5mg PO HS -Started Aspirin 81mg PO daily -Will hold starting Lisinopril in light of renal failure Respiratory: -CXR 06/29: No active disease -No acute issues at this time GI: -Will start on Puree diet with thin liquids -Pepcid 20mg IVP daily for GI ppx -Dulcolax 10mg LA x 1 ordered -Monitor bowel function -AST/ALT: 94/53, continue to monitor Endocrine: -Patient with history of Hypothyroidism -Start Synthroid 25mcg PO daily at home -Family denies prior history diabetes -Patient presented with DKA -Serum glucose 1108 on admission; HgA1C 12.9 -Insulin drip discontinued yesterday -Will increase Lantus to 15 units QHS -Added Regular Insulin 7 units ACHS, accuchecks ACHS -Endocrine consulted, Dr Dior, help appreciated -Sliding scale discontinued Heme/Onc: -Hgb/Hct: 15.5/47.0 -No acute issues at this time Renal: -Renal function improved -Elevated Bun/Cr: 59/1.6 -Baseline renal function unknown -Continue IV fluid hydration -Will discontinue romano catheter -Sodium down to 150, will continue to monitor Infectious Disease: -Patient is code sepsis -Lactate on VBG 5.1, repeat lactate 3.3 -Leukocytosis 11.5 -> 12.6 -S/P NS 1L bolus x 2 in the ED, Received vanco and zosyn -Source is unknown at this time, but likely secondary to DKA -Continue 1/2 NS at 125cc/hr -F/U blood cultures, urine cultures -Antibiotics: Vancomycin 1gm IV Q24H, Zosyn 2.25mg IV Q8H GI/DVT ppx: -Pepcid 20mg IVP daily -Heparin 5000 units SC Q12H <Zeus rAaya - Last Filed: 06/30/17 17:11> CCU Objective - Vital Signs / Intake & Output Vital Signs (Last 4 hours): Vital Signs Temp Pulse Resp BP Pulse Ox 06/30/17 17:00 91 H 26 H 94 L 06/30/17 16:54 94 H 17 112/63 100 06/30/17 16:00 98.2 F 88 27 H 98 06/30/17 15:54 81 21 120/57 L 94 L 06/30/17 15:00 81 20 95 06/30/17 14:54 85 25 H 131/62 97 06/30/17 14:00 84 23 95 06/30/17 13:55 84 24 131/59 L 95 Intake and Output (Last 8hrs): Intake & Output 06/30/17 06/30/17 06/30/17 06:59 14:59 22:59 Intake Total 1250 1150 550 Output Total 580 275 Balance 670 875 550 Weight 131 lb 7 oz Intake: Intake, IV Amount 1250 1150 550 Left Antecubital 1200 1150 425 Right Antecubital 50 0 125 Output: Urine 580 275 Urethral (Romano) 580 275 Other: # Bowel Movements 1 - Medications Active Medications: Active Medications Generic Name Dose Route Start Last Admin Trade Name Freq PRN Reason Stop Dose Admin Aspirin 81 mg 07/01/17 10:00 Ecotrin PO DAILY ROYCE Famotidine 20 mg 06/29/17 10:15 06/30/17 09:49 Pepcid IVP 20 mg DAILY ROYCE Administration Heparin Sodium (Porcine) 5,000 units 06/29/17 10:15 06/30/17 09:49 Heparin SC 5,000 units Q12 ROYCE Administration Vancomycin/Sodium Chloride 1 gm in 200 mls @ 133.333 mls/hr 06/29/17 12:00 11:22 Vancomycin 1 Gm/Ns 200 Ml IVPB 133.333 mls/hr Q24H ROYCE Administration Protocol Piperacillin Sod/Tazobactam Sod 2.25 gm in 50 mls @ 100 mls/hr 06/29/17 16:00 06/30/17 15:57 Zosyn 2.25 Gm Iv Premix IVPB 100 mls/hr Q8H ROYCE Administration Protocol Sodium Chloride 1,000 mls @ 125 mls/hr 06/29/17 23:30 06/30/17 15:59 Sodium Chloride 0.45% IV 125 mls/hr .Q8H ROYCE Administration Insulin Aspart 12 unit 06/30/17 11:32 Novolog SC AC ROYCE Insulin Aspart 0 unit 06/30/17 16:30 06/30/17 16:10 Novolog SC Not Given ACHS [facility] [place] Insulin Glargine 24 unit 06/30/17 22:00 Lantus SC HS [facility] Levothyroxine Sodium 25 mcg 07/01/17 06:30 Synthroid PO DAILY@0630 [facility] [place] Rosuvastatin Calcium 5 mg 06/30/17 22:00 Crestor PO HS [facility] [place] - Patient Studies Lab Studies: Microbiology Studies 06/29/17 07:43 Urine Culture - Final Urine No Growth (<1,000 CFU/ML) Lab Studies 06/30/17 06/30/17 06/30/17 Range/Units 16:03 11:16 07:33 WBC (4.8-10.8) K/uL RBC (4.40-5.90) Mil/uL Hgb (12.0-18.0) g/dL Hct (35.0-51.0) % MCV (80.0-94.0) fL MCH (27.0-31.0) pg MCHC (33.0-37.0) g/dL RDW (11.5-14.5) % Plt Count (130-400) K/uL MPV (7.2-11.7) fL Neut % (Auto) (50.0-75.0) % Lymph % (Auto) (20.0-40.0) % [place] % (Auto) (0.0-10.0) % Eos % (Auto) (0.0-4.0) % Baso % (Auto) (0.0-2.0) % Neut # (Auto) (1.8-7.0) K/uL Lymph # (Auto) (1.0-4.3) K/uL [place] # (Auto) (0.0-0.8) K/uL Eos # (Auto) (0.0-0.7) K/uL Baso # (Auto) (0.0-0.2) K/uL Puncture Site pCO2 (35-45) mm/Hg pO2 (80-100) mm/Hg HCO3 (21-28) mmol/L ABG pH (7.35-7.45) ABG Total CO2 (22-28) mmol/L ABG O2 Saturation (95-98) % ABG Base Excess (-2.0-3.0) mmol/L ABG Hemoglobin (11.7-17.4) g/dL ABG Carboxyhemoglobin (0.5-1.5) % POC ABG HHb (Measured) (0.0-5.0) % ABG Methemoglobin (0.0-3.0) % Aditya Test Hgb O2 Saturation (95.0-98.0) % Liter Flow Sodium (132-148) mmol/L Potassium (3.6-5.2) mmol/L Chloride (98-107) mmol/L Carbon Dioxide (22-30) mmol/L Anion Gap (10-20) BUN (9-20) mg/dL Creatinine (0.8-1.5) mg/dL Est GFR ( Amer) Est GFR (Non-Af Amer) POC Glucose (mg/dL) 274 H 305 H 247 H (65-110) mg/dL Random Glucose (75-110) mg/dL Calcium (8.6-10.4) mg/dl Phosphorus (2.5-4.5) mg/dL Magnesium (1.6-2.3) mg/dL Total Bilirubin (0.2-1.3) mg/dL AST (17-59) U/L ALT (21-72) U/L Alkaline Phosphatase (38-126) U/L Total Protein (6.3-8.3) g/dL Albumin (3.5-5.0) g/dL Globulin (2.2-3.9) gm/dL Albumin/Globulin Ratio (1.0-2.1) Serum Ketones (NEGATIVE) 06/30/17 06/30/17 06/30/17 Range/Units 05:57 05:50 05:16 WBC 12.6 H (4.8-10.8) K/uL RBC 4.88 (4.40-5.90) Mil/uL Hgb 15.5 D (12.0-18.0) g/dL Hct 47.0 (35.0-51.0) % MCV 96.3 H D (80.0-94.0) fL MCH 31.8 H (27.0-31.0) pg MCHC 33.0 (33.0-37.0) g/dL RDW 13.1 (11.5-14.5) % Plt Count 137 D (130-400) K/uL MPV 9.7 (7.2-11.7) fL Neut % (Auto) 79.3 H (50.0-75.0) % Lymph % (Auto) 12.7 L (20.0-40.0) % [place] % (Auto) 4.2 (0.0-10.0) % Eos % (Auto) 2.0 (0.0-4.0) % Baso % (Auto) 1.8 (0.0-2.0) % Neut # (Auto) 10.0 H (1.8-7.0) K/uL Lymph # (Auto) 1.6 (1.0-4.3) K/uL [place] # (Auto) 0.5 (0.0-0.8) K/uL Eos # (Auto) 0.3 (0.0-0.7) K/uL Baso # (Auto) 0.2 (0.0-0.2) K/uL Puncture Site pCO2 (35-45) mm/Hg pO2 (80-100) mm/Hg HCO3 (21-28) mmol/L ABG pH (7.35-7.45) ABG Total CO2 (22-28) mmol/L ABG O2 Saturation (95-98) % ABG Base Excess (-2.0-3.0) mmol/L ABG Hemoglobin (11.7-17.4) g/dL ABG Carboxyhemoglobin (0.5-1.5) % POC ABG HHb (Measured) (0.0-5.0) % ABG Methemoglobin (0.0-3.0) % Aditya Test Hgb O2 Saturation (95.0-98.0) % Liter Flow Sodium 150 H (132-148) mmol/L Potassium 4.3 (3.6-5.2) mmol/L Chloride 114 H (98-107) mmol/L Carbon Dioxide 24 (22-30) mmol/L Anion Gap 17 (10-20) BUN 53 H (9-20) mg/dL Creatinine 1.6 H (0.8-1.5) mg/dL Est GFR ( Amer) 51 Est GFR (Non-Af Amer) 42 POC Glucose (mg/dL) 240 H (65-110) mg/dL Random Glucose 244 H (75-110) mg/dL Calcium 7.9 L (8.6-10.4) mg/dl Phosphorus 2.4 L (2.5-4.5) mg/dL Magnesium 2.3 (1.6-2.3) mg/dL Total Bilirubin 0.8 (0.2-1.3) mg/dL AST 94 H D (17-59) U/L ALT 53 (21-72) U/L Alkaline Phosphatase 65 (38-126) U/L Total Protein 6.3 (6.3-8.3) g/dL Albumin 2.8 L (3.5-5.0) g/dL Globulin 3.5 (2.2-3.9) gm/dL Albumin/Globulin Ratio 0.8 L (1.0-2.1) Serum Ketones (NEGATIVE) 06/30/17 06/29/17 06/29/17 Range/Units 00:02 22:55 21:03 WBC (4.8-10.8) K/uL RBC (4.40-5.90) Mil/uL Hgb (12.0-18.0) g/dL Hct (35.0-51.0) % MCV (80.0-94.0) fL MCH (27.0-31.0) pg MCHC (33.0-37.0) g/dL RDW (11.5-14.5) % Plt Count (130-400) K/uL MPV (7.2-11.7) fL Neut % (Auto) (50.0-75.0) % Lymph % (Auto) (20.0-40.0) % [place] % (Auto) (0.0-10.0) % Eos % (Auto) (0.0-4.0) % Baso % (Auto) (0.0-2.0) % Neut # (Auto) (1.8-7.0) K/uL Lymph # (Auto) (1.0-4.3) K/uL [place] # (Auto) (0.0-0.8) K/uL Eos # (Auto) (0.0-0.7) K/uL Baso # (Auto) (0.0-0.2) K/uL Puncture Site Rr pCO2 40 (35-45) mm/Hg pO2 115 H (80-100) mm/Hg HCO3 22.3 (21-28) mmol/L ABG pH 7.35 (7.35-7.45) ABG Total CO2 23.3 (22-28) mmol/L ABG O2 Saturation 98.0 (95-98) % ABG Base Excess -3.3 L (-2.0-3.0) mmol/L ABG Hemoglobin 16.3 (11.7-17.4) g/dL ABG Carboxyhemoglobin 1.1 (0.5-1.5) % POC ABG HHb (Measured) 2.0 (0.0-5.0) % ABG Methemoglobin 0.8 (0.0-3.0) % Aditya Test Pos Hgb O2 Saturation 96.0 (95.0-98.0) % Liter Flow 3.0 Sodium 150 H (132-148) mmol/L Potassium 4.0 (3.6-5.2) mmol/L Chloride 113 H (98-107) mmol/L Carbon Dioxide 20 L (22-30) mmol/L Anion Gap 21 H (10-20) BUN 51 H (9-20) mg/dL Creatinine 1.5 (0.8-1.5) mg/dL Est GFR ( Amer) 55 Est GFR (Non-Af Amer) 46 POC Glucose (mg/dL) 359 H (65-110) mg/dL Random Glucose 446 H* D (75-110) mg/dL Calcium 7.1 L (8.6-10.4) mg/dl Phosphorus (2.5-4.5) mg/dL Magnesium (1.6-2.3) mg/dL Total Bilirubin 0.7 (0.2-1.3) mg/dL AST 73 H D (17-59) U/L ALT 46 (21-72) U/L Alkaline Phosphatase 59 (38-126) U/L Total Protein 5.7 L (6.3-8.3) g/dL Albumin 2.5 L D (3.5-5.0) g/dL Globulin 3.2 (2.2-3.9) gm/dL Albumin/Globulin Ratio 0.8 L (1.0-2.1) Serum Ketones Moderate (NEGATIVE) 06/29/17 Range/Units 17:07 WBC (4.8-10.8) K/uL RBC (4.40-5.90) Mil/uL Hgb (12.0-18.0) g/dL Hct (35.0-51.0) % MCV (80.0-94.0) fL MCH (27.0-31.0) pg MCHC (33.0-37.0) g/dL RDW (11.5-14.5) % Plt Count (130-400) K/uL MPV (7.2-11.7) fL Neut % (Auto) (50.0-75.0) % Lymph % (Auto) (20.0-40.0) % [place] % (Auto) (0.0-10.0) % Eos % (Auto) (0.0-4.0) % Baso % (Auto) (0.0-2.0) % Neut # (Auto) (1.8-7.0) K/uL Lymph # (Auto) (1.0-4.3) K/uL [place] # (Auto) (0.0-0.8) K/uL Eos # (Auto) (0.0-0.7) K/uL Baso # (Auto) (0.0-0.2) K/uL Puncture Site pCO2 (35-45) mm/Hg pO2 (80-100) mm/Hg HCO3 (21-28) mmol/L ABG pH (7.35-7.45) ABG Total CO2 (22-28) mmol/L ABG O2 Saturation (95-98) % ABG Base Excess (-2.0-3.0) mmol/L ABG Hemoglobin (11.7-17.4) g/dL ABG Carboxyhemoglobin (0.5-1.5) % POC ABG HHb (Measured) (0.0-5.0) % ABG Methemoglobin (0.0-3.0) % Aditya Test Hgb O2 Saturation (95.0-98.0) % Liter Flow Sodium (132-148) mmol/L Potassium (3.6-5.2) mmol/L Chloride (98-107) mmol/L Carbon Dioxide (22-30) mmol/L Anion Gap (10-20) BUN (9-20) mg/dL Creatinine (0.8-1.5) mg/dL Est GFR ( Amer) Est GFR (Non-Af Amer) POC Glucose (mg/dL) 137 H (65-110) mg/dL Random Glucose (75-110) mg/dL Calcium (8.6-10.4) mg/dl Phosphorus (2.5-4.5) mg/dL Magnesium (1.6-2.3) mg/dL Total Bilirubin (0.2-1.3) mg/dL AST (17-59) U/L ALT (21-72) U/L Alkaline Phosphatase (38-126) U/L Total Protein (6.3-8.3) g/dL Albumin (3.5-5.0) g/dL Globulin (2.2-3.9) gm/dL Albumin/Globulin Ratio (1.0-2.1) Serum Ketones (NEGATIVE) Laboratory Results - last 24 hr 06/29/17 06/29/17 06/29/17 17:07 21:03 22:55 WBC RBC Hgb Hct MCV MCH MCHC RDW Plt Count MPV Neut % (Auto) Lymph % (Auto) [place] % (Auto) Eos % (Auto) Baso % (Auto) Neut # (Auto) Lymph # (Auto) [place] # (Auto) Eos # (Auto) Baso # (Auto) Puncture Site pCO2 pO2 HCO3 ABG pH ABG Total CO2 ABG O2 Saturation ABG Base Excess ABG Hemoglobin ABG Carboxyhemoglobin POC ABG HHb (Measured) ABG Methemoglobin Aditya Test Hgb O2 Saturation Liter Flow Sodium 150 H Potassium 4.0 Chloride 113 H Carbon Dioxide 20 L Anion Gap 21 H BUN 51 H Creatinine 1.5 Est GFR ( Amer) 55 Est GFR (Non-Af Amer) 46 POC Glucose (mg/dL) 137 H 359 H Random Glucose 446 H* D Calcium 7.1 L Phosphorus Magnesium Total Bilirubin 0.7 AST 73 H D ALT 46 Alkaline Phosphatase 59 Total Protein 5.7 L Albumin 2.5 L D Globulin 3.2 Albumin/Globulin Ratio 0.8 L Serum Ketones Moderate 06/30/17 06/30/17 06/30/17 00:02 05:16 05:50 WBC 12.6 H RBC 4.88 Hgb 15.5 D Hct 47.0 MCV 96.3 H D MCH 31.8 H MCHC 33.0 RDW 13.1 Plt Count 137 D MPV 9.7 Neut % (Auto) 79.3 H Lymph % (Auto) 12.7 L [place] % (Auto) 4.2 Eos % (Auto) 2.0 Baso % (Auto) 1.8 Neut # (Auto) 10.0 H Lymph # (Auto) 1.6 [place] # (Auto) 0.5 Eos # (Auto) 0.3 Baso # (Auto) 0.2 Puncture Site Rr pCO2 40 pO2 115 H HCO3 22.3 ABG pH 7.35 ABG Total CO2 23.3 ABG O2 Saturation 98.0 ABG Base Excess -3.3 L ABG Hemoglobin 16.3 ABG Carboxyhemoglobin 1.1 POC ABG HHb (Measured) 2.0 ABG Methemoglobin 0.8 Aditya Test Pos Hgb O2 Saturation 96.0 Liter Flow 3.0 Sodium Potassium Chloride Carbon Dioxide Anion Gap BUN Creatinine Est GFR ( Amer) Est GFR (Non-Af Amer) POC Glucose (mg/dL) 240 H Random Glucose Calcium Phosphorus Magnesium Total Bilirubin AST ALT Alkaline Phosphatase Total Protein Albumin Globulin Albumin/Globulin Ratio Serum Ketones 06/30/17 06/30/17 06/30/17 05:57 07:33 11:16 WBC RBC Hgb Hct MCV MCH MCHC RDW Plt Count MPV Neut % (Auto) Lymph % (Auto) [place] % (Auto) Eos % (Auto) Baso % (Auto) Neut # (Auto) Lymph # (Auto) [place] # (Auto) Eos # (Auto) Baso # (Auto) Puncture Site pCO2 pO2 HCO3 ABG pH ABG Total CO2 ABG O2 Saturation ABG Base Excess ABG Hemoglobin ABG Carboxyhemoglobin POC ABG HHb (Measured) ABG Methemoglobin Aditya Test Hgb O2 Saturation Liter Flow Sodium 150 H Potassium 4.3 Chloride 114 H Carbon Dioxide 24 Anion Gap 17 BUN 53 H Creatinine 1.6 H Est GFR ( Amer) 51 Est GFR (Non-Af Amer) 42 POC Glucose (mg/dL) 247 H 305 H Random Glucose 244 H Calcium 7.9 L Phosphorus 2.4 L Magnesium 2.3 Total Bilirubin 0.8 AST 94 H D ALT 53 Alkaline Phosphatase 65 Total Protein 6.3 Albumin 2.8 L Globulin 3.5 Albumin/Globulin Ratio 0.8 L Serum Ketones 06/30/17 16:03 WBC RBC Hgb Hct MCV MCH MCHC RDW Plt Count MPV Neut % (Auto) Lymph % (Auto) [place] % (Auto) Eos % (Auto) Baso % (Auto) Neut # (Auto) Lymph # (Auto) [place] # (Auto) Eos # (Auto) Baso # (Auto) Puncture Site pCO2 pO2 HCO3 ABG pH ABG Total CO2 ABG O2 Saturation ABG Base Excess ABG Hemoglobin ABG Carboxyhemoglobin POC ABG HHb (Measured) ABG Methemoglobin Aditya Test Hgb O2 Saturation Liter Flow Sodium Potassium Chloride Carbon Dioxide Anion Gap BUN Creatinine Est GFR ( Amer) Est GFR (Non-Af Amer) POC Glucose (mg/dL) 274 H Random Glucose Calcium Phosphorus Magnesium Total Bilirubin AST ALT Alkaline Phosphatase Total Protein Albumin Globulin Albumin/Globulin Ratio Serum Ketones Critical Care Progress Note - Nutrition Nutrition: Nutrition Category Date Time Status Diabetic [Consistent Carbohydrate] [DIET] Diets 06/30/17 Lunch Active Assessment/Plan - Assessment and Plan (Free Text) Assessment: Patient admitted to ICU for DKA DKA: anion gap closed -switch to subQ insulin -lantus 24 units and premeals aspart 12 units premeals -endocrin consult -restart oral diet -d/c femoral line -Patient remains hemodynamically stable - Date & Time Date: 06/30/17 Time: 09:15
[2017-06-30] MEDS: Vancomycin 1 gm/NS 200 ml 1 GM/200 ML BAG IVPB SCH ×2 (11:22→17:21)
[2017-06-30] MEDS ORDERED: (Novolog) Insulin Aspart, Recombinant 100 u/ml 10 ml vial SC SCH ×4 (11:30→16:30)
--- NOTE | 2017-06-30 17:28 | CP.PCM.CON ---
History of Present Illness - History of Present Illness History of Present Illness: INFECTIOUS DISEASE CONSULT; DICTATED. DICTATION NUMBER; [id number]. SEE REPORTS. IMPRESSION; AMS ? TOXIC METABOLIC ENCEPHALOPATHY. DIABETIC KETOACIDOSIS. HYPERNATREMIA. SEVERE DEHYDRATION. HYPOTHYROIDISM BENIGN PROSTATIC HYPERTROPHY. HYPERCHOLESTEROLEMIA. PLAN; PANCULTURES iv FLUIDS PER [employer]ACHT BU[employer]DER. PATIENT OFF INSULIN DRIP-1 AND REGULAR COVERAGE. CONTINUE iv zOSYN 2.25 G EVERY 8 HOURLY 06/29/17 CONTINUE iv VANCOMYCIN 1 G EVERY 24 HOURLY 06/29/17. fOLLOW-UP vANCO TROUGH PRIOR TO THE FOURTH DOSE AND KEEP BETWEEN 10 AND 20. fOLLOW-UP RENAL FUNCTIONS CLOSELY. fOLLOW-UP NEURO STATUS CLOSELY. IF NO IMPROVEMENT AND NO CONTRAINDICATION TO CONSIDER LP. PATIENT PRESENTLY HAS NO MENINGEAL SIGNS BUT WILL OBSERVE CLOSELY FOR FURTHER DETERIORATION. Velarde HAS BEEN DISCONTINUED TODAY. WILL FOLLOW ALONG WITH YOU. Past Patient History - Infectious Disease Hx of Infectious Diseases: None - Past Medical History & Family History Past Medical History?: Yes - Past Social History Smoking Status: Never Smoked - CARDIAC Hx Hypercholesterolemia: Yes - PULMONARY Hx Asthma: No - HEENT Hx Blind: Yes - RENAL Hx Chronic Kidney Disease: No - ENDOCRINE/METABOLIC Hx Hypothyroidism: Yes - MUSCULOSKELETAL/RHEUMATOLOGICAL Hx Musculoskeletal Disorders: No Hx Falls: No - GASTROINTESTINAL Hx Gastrointestinal Disorders: No - GENITOURINARY/GYNECOLOGICAL Hx Genitourinary Disorders: No - PSYCHIATRIC Hx Substance Use: No - SURGICAL HISTORY Hx Surgeries: No - ANESTHESIA Hx Anesthesia: No Meds Allergies/Adverse Reactions: Allergies Allergy/AdvReac Type Severity Reaction Status Date / Time No Known Allergies Allergy Verified 06/29/17 06:45 - Medications Medications: Current Medications Aspirin (Ecotrin) 81 mg PO DAILY [facility] Famotidine (Pepcid) 20 mg IVP DAILY [facility] Heparin Sodium (Porcine) (Heparin) 5,000 units SC Q12 [facility] Piperacillin Sod/Tazobactam Sod (Zosyn 2.25 Gm Iv Premix) 2.25 gm in 50 mls @ 100 mls/hr IVPB Q8H ROYCE PRN Reason: Protocol Last Admin: 06/30/17 15:57 Dose: 100 mls/hr Sodium Chloride (Sodium Chloride 0.45%) 1,000 mls @ 125 mls/hr IV .Q8H [facility] Last Admin: 06/30/17 15:59 Dose: 125 mls/hr Vancomycin/Sodium Chloride (Vancomycin 1 Gm/Ns 200 Ml) 1 gm in 200 mls @ 133.333 mls/hr IVPB Q24H [facility] PRN Reason: Protocol Stop: 07/05/17 18:01 Last Admin: 06/30/17 17:21 Dose: 133.333 mls/hr Insulin Aspart (Novolog) 12 unit SC AC ROYCE Last Admin: 06/30/17 17:19 Dose: 12 unit Insulin Aspart (Novolog) 0 unit SC ACHS [facility] Last Admin: 06/30/17 17:20 Dose: Not Given Insulin Glargine (Lantus) 24 unit SC HS [facility] Levothyroxine Sodium (Synthroid) 25 mcg PO DAILY@0630 ROYCE Rosuvastatin Calcium (Crestor) 5 mg PO HS [facility] Results - Vital Signs Recent Vital Signs: Last Vital Signs Temp 98.2 F 06/30/17 16:00 Pulse 91 H 06/30/17 17:00 Resp 26 H 06/30/17 17:00 BP 112/63 06/30/17 16:54 Pulse Ox 94 L 06/30/17 17:00 - Labs Result Diagrams: 07/01/17 06:11 07/01/17 06:11 Labs: Laboratory Results - last 24 hr 06/29/17 06/29/17 06/29/17 17:07 21:03 22:55 WBC RBC Hgb Hct MCV MCH MCHC RDW Plt Count MPV Neut % (Auto) Lymph % (Auto) [place] % (Auto) Eos % (Auto) Baso % (Auto) Neut # (Auto) Lymph # (Auto) [place] # (Auto) Eos # (Auto) Baso # (Auto) Puncture Site pCO2 pO2 HCO3 ABG pH ABG Total CO2 ABG O2 Saturation ABG Base Excess ABG Hemoglobin ABG Carboxyhemoglobin POC ABG HHb (Measured) ABG Methemoglobin Aditya Test Hgb O2 Saturation Liter Flow Sodium 150 H Potassium 4.0 Chloride 113 H Carbon Dioxide 20 L Anion Gap 21 H BUN 51 H Creatinine 1.5 Est GFR ( Amer) 55 Est GFR (Non-Af Amer) 46 POC Glucose (mg/dL) 137 H 359 H Random Glucose 446 H* D Calcium 7.1 L Phosphorus Magnesium Total Bilirubin 0.7 AST 73 H D ALT 46 Alkaline Phosphatase 59 Total Protein 5.7 L Albumin 2.5 L D Globulin 3.2 Albumin/Globulin Ratio 0.8 L Serum Ketones Moderate 06/30/17 06/30/17 06/30/17 00:02 05:16 05:50 WBC 12.6 H RBC 4.88 Hgb 15.5 D Hct 47.0 MCV 96.3 H D MCH 31.8 H MCHC 33.0 RDW 13.1 Plt Count 137 D MPV 9.7 Neut % (Auto) 79.3 H Lymph % (Auto) 12.7 L [place] % (Auto) 4.2 Eos % (Auto) 2.0 Baso % (Auto) 1.8 Neut # (Auto) 10.0 H Lymph # (Auto) 1.6 [place] # (Auto) 0.5 Eos # (Auto) 0.3 Baso # (Auto) 0.2 Puncture Site Rr pCO2 40 pO2 115 H HCO3 22.3 ABG pH 7.35 ABG Total CO2 23.3 ABG O2 Saturation 98.0 ABG Base Excess -3.3 L ABG Hemoglobin 16.3 ABG Carboxyhemoglobin 1.1 POC ABG HHb (Measured) 2.0 ABG Methemoglobin 0.8 Aditya Test Pos Hgb O2 Saturation 96.0 Liter Flow 3.0 Sodium Potassium Chloride Carbon Dioxide Anion Gap BUN Creatinine Est GFR ( Amer) Est GFR (Non-Af Amer) POC Glucose (mg/dL) 240 H Random Glucose Calcium Phosphorus Magnesium Total Bilirubin AST ALT Alkaline Phosphatase Total Protein Albumin Globulin Albumin/Globulin Ratio Serum Ketones 06/30/17 06/30/17 06/30/17 05:57 07:33 11:16 WBC RBC Hgb Hct MCV MCH MCHC RDW Plt Count MPV Neut % (Auto) Lymph % (Auto) [place] % (Auto) Eos % (Auto) Baso % (Auto) Neut # (Auto) Lymph # (Auto) [place] # (Auto) Eos # (Auto) Baso # (Auto) Puncture Site pCO2 pO2 HCO3 ABG pH ABG Total CO2 ABG O2 Saturation ABG Base Excess ABG Hemoglobin ABG Carboxyhemoglobin POC ABG HHb (Measured) ABG Methemoglobin Aditya Test Hgb O2 Saturation Liter Flow Sodium 150 H Potassium 4.3 Chloride 114 H Carbon Dioxide 24 Anion Gap 17 BUN 53 H Creatinine 1.6 H Est GFR ( Amer) 51 Est GFR (Non-Af Amer) 42 POC Glucose (mg/dL) 247 H 305 H Random Glucose 244 H Calcium 7.9 L Phosphorus 2.4 L Magnesium 2.3 Total Bilirubin 0.8 AST 94 H D ALT 53 Alkaline Phosphatase 65 Total Protein 6.3 Albumin 2.8 L Globulin 3.5 Albumin/Globulin Ratio 0.8 L Serum Ketones 06/30/17 16:03 WBC RBC Hgb Hct MCV MCH MCHC RDW Plt Count MPV Neut % (Auto) Lymph % (Auto) [place] % (Auto) Eos % (Auto) Baso % (Auto) Neut # (Auto) Lymph # (Auto) [place] # (Auto) Eos # (Auto) Baso # (Auto) Puncture Site pCO2 pO2 HCO3 ABG pH ABG Total CO2 ABG O2 Saturation ABG Base Excess ABG Hemoglobin ABG Carboxyhemoglobin POC ABG HHb (Measured) ABG Methemoglobin Aditya Test Hgb O2 Saturation Liter Flow Sodium Potassium Chloride Carbon Dioxide Anion Gap BUN Creatinine Est GFR ( Amer) Est GFR (Non-Af Amer) POC Glucose (mg/dL) 274 H Random Glucose Calcium Phosphorus Magnesium Total Bilirubin AST ALT Alkaline Phosphatase Total Protein Albumin Globulin Albumin/Globulin Ratio Serum Ketones
--- NOTE | 2017-06-30 21:15 | CP.PCM.PN ---
Subjective - Date & Time of Evaluation Date of Evaluation: 06/30/17 Objective - Vital Signs/Intake and Output Vital Signs (last 24 hours): Temp Pulse Resp BP Pulse Ox 98.2 F 86 17 119/58 L 97 06/30/17 16:00 06/30/17 19:00 06/30/17 19:00 06/30/17 18:54 06/30/17 19:00 Intake and Output: 06/30/17 07/01/17 18:59 06:59 Intake Total 1925 125 Output Total 475 Balance 1450 125 - Medications Medications: Current Medications Aspirin (Ecotrin) 81 mg PO DAILY [facility] Famotidine (Pepcid) 20 mg IVP DAILY [facility] Heparin Sodium (Porcine) (Heparin) 5,000 units SC Q12 [facility] Piperacillin Sod/Tazobactam Sod (Zosyn 2.25 Gm Iv Premix) 2.25 gm in 50 mls @ 100 mls/hr IVPB Q8H [facility] PRN Reason: Protocol Last Admin: 06/30/17 15:57 Dose: 100 mls/hr Sodium Chloride (Sodium Chloride 0.45%) 1,000 mls @ 125 mls/hr IV .Q8H [facility] Last Admin: 06/30/17 15:59 Dose: 125 mls/hr Vancomycin/Sodium Chloride (Vancomycin 1 Gm/Ns 200 Ml) 1 gm in 200 mls @ 133.333 mls/hr IVPB Q24H [facility] PRN Reason: Protocol Stop: 07/05/17 18:01 Last Admin: 06/30/17 17:21 Dose: 133.333 mls/hr Insulin Aspart (Novolog) 12 unit SC AC [facility] Last Admin: 06/30/17 17:19 Dose: 12 unit Insulin Aspart (Novolog) 0 unit SC ACHS [facility] Last Admin: 06/30/17 17:20 Dose: Not Given Insulin Glargine (Lantus) 24 unit SC HS [facility] Levothyroxine Sodium (Synthroid) 25 mcg PO DAILY@0630 [facility] Rosuvastatin Calcium (Crestor) 5 mg PO HS [facility] - Labs Labs: 06/30/17 05:50 06/30/17 05:57 PT 11.1 SECONDS (9.7-12.2) 06/29/17 07:08 INR 1.0 06/29/17 07:08 APTT 32 SECONDS (21-34) 06/29/17 07:08
[2017-06-30] MEDS ORDERED: (Lantus) Insulin Glargine, Recombinant SC SCH ×3 (22:00)
[2017-06-30] MEDS: (Lantus) Insulin Glargine, Recombinant SC SCH (23:02)
--- NOTE | 2017-07-01 00:25 | CON ---
DATE: LOCATION: ICU room 6. HISTORY OF PRESENT ILLNESS: This is a 72-year-old male with known history of hypertension and hypothyroidism, who was brought in with generalized body weakness and progressive dizziness and lightheadedness, and is being referred now for diabetic evaluation and management. There is no apparent history of a prior diabetic condition and was not on any kind of oral hypoglycemic therapy at that time. PAST MEDICAL HISTORY: As mentioned above, history of hypertension and dyslipidemia, currently on levothyroxine given as 25 mcg daily. He has actually run out of his hypertension medications as noted. History of BPH, on Flomax at 0.4 mg daily. FAMILY HISTORY: Positive for diabetes and hypertension. SOCIAL HISTORY: The patient has a supportive family, actually a nephew who lives with him and was found to have increasing confusion, disorientation and generalized body weakness and lethargy. REVIEW OF SYSTEMS: As mentioned above, as per the nephew, the patient was noted to have increasing dizziness and lightheadedness, worse on the last 2 to 3 days prior to admission with associated marked hypersomnolence, lethargy, and increasing confusion and disorientation. He also has generalized body weakness and easy fatigability and tiredness with suboptimal energy level. He also admits to visual blurring and bifrontal headaches. No chest pains, but admits to progressive shortness of breath, initially on exertion and then at rest. His oral intake has been very poor and suboptimal with marked anorexia and weight loss. He also admits to dyspepsia, episodic vomiting episodes, moreover, was noted to have increasing polyuria, nocturia, and polydipsia with occasional urinary incontinence. PHYSICAL EXAMINATION: GENERAL: This is a chronically ill male in no apparent distress. VITAL SIGNS: Blood pressure of 140/80, pulse of 100 beats per minute and regular, temperature 98, respirations 20, height is 5 feet, and weight is 131 pounds. HEENT: Head is normocephalic. Eyes anicteric with pink conjunctivae. Funduscopy is not possible at this time. Ears, nose and throat, otherwise, normal. NECK: Supple. Thyroid gland is normal in size. No carotid bruits or cervical adenopathy. CARDIOPULMONARY: Some adynamic precordium. S1 and S2 are rapid and regular. LUNGS: Clear to auscultation. ABDOMEN: Flat, soft with positive bowel sounds. EXTREMITIES: No peripheral edema. Pulses are +2 bilaterally. SKIN: Turgor is very coarse and dry as noted, and buccal mucosa is parched and dry. LABORATORY DATA: His initial chemistry showed a BUN of 78, sodium 144, potassium 5.5, chloride 94, CO2 16, glucose is 1108, creatinine is 2.8. Troponin is 0.10. His glucose levels have ranged from 352 to 522 mg/dL. His A1c is 12.9% and thyroid study shows a TSH of 0.47 with free T4 of 1.06. ASSESSMENT: This is a 72-year-old male with recent diagnosis of onset of type 2 insulin requiring diabetes, presenting here with hyperosmolar hyperglycemic state and ketosis and underlying metabolic acidosis, with clinical and biochemical evidence of dehydration and prerenal azotemia and spurious hyponatremia. PLAN OF MANAGEMENT: We will concur with the recent intensive insulin therapy with insulin recommendation and currently being switched to a basal and bolus insulin drug combination as noted. We will continue the vigorous IV hydration as ordered. We will supplement accordingly with serial chemistries to be obtained thereof. We will modify his current basal and bolus insulin regimen to optimize metabolic control. We will increase the NovoLog to 12 units subcu t.i.d. before meals to start at lunch time today as ordered. We will also titrate his Lantus given as basal insulin to 24 units subcu at bedtime daily as given. We will modify the coverage scale to obviate hypoglycemia and detailed orders have been given. As the patient is recently diagnosed with insulin-requiring type 2 diabetes, many times with the initiation of insulin therapy for management of marked glucotoxicity, the pancreas recovers on its own indigenous pancreatic reserve and the patient usually has a dramatic response metabolically and can eventually be switched over to a combination of oral hypoglycemic therapy as noted. However, for this inpatient management, the patient will need insulin therapy for the marked glucotoxicity and should be followed very closely as outpatient, switch over to oral hypoglycemic therapy as indicated. Glucose monitoring and insulin self administration has to be undertaken and initiated with this hospitalization thereof. We will follow and advise accordingly. We will also perform diabetic nurse educator as well as a dietitian for nutritional counseling for healthier food choices at this time. Helena Dior MD [facility] # [id number]
[2017-07-01] MEDS: Sodium Chloride 0.45% 1,000 ML IV SCH ×2 (02:19→07:37)
[2017-07-01] MEDS: Levothyroxine 25 MCG TAB PO SCH (05:56)
[2017-07-01 06:16] LABS: BASO # 0.1 K/uL (0.0-0.2); BASO % 0.5 % (0.0-2.0); EOS # 0.2 K/uL (0.0-0.7); EOS % 2.2 % (0.0-4.0); LYMPH % 18.6 % (20.0-40.0); MEAN CELL VOLUME 96.8 fL (80.0-94.0); MEAN CORPUSCULAR HGB CONC 33.1 g/dL (33.0-37.0); MEAN PLATELET VOLUME 10.1 fL (7.2-11.7); MONO # 0.4 K/uL (0.0-0.8); MONO % 3.5 % (0.0-10.0); NEUT # 8.1 K/uL (1.8-7.0); NEUT % 75.2 % (50.0-75.0); RBC 4.99 Mil/uL (4.40-5.90); RED CELL DISTRIBUTION WIDTH 13.2 % (11.5-14.5); WHITE BLOOD COUNT 10.8 K/uL (4.8-10.8)
[2017-07-01] MEDS: Piperacill/Tazo 2.25gm in Dex 2.25 GM/50 ML BAG IVPB SCH ×3 (06:19→23:00)
[2017-07-01] MEDS ORDERED: Levothyroxine 25 MCG TAB PO SCH (06:30)
[2017-07-01 06:38] LABS: ALB/GLOB RATIO 0.8 (1.0-2.1); ALBUMIN 3.2 g/dL (3.5-5.0); ALT/SGPT 76 U/L (21-72); AST/SGOT 155 U/L (17-59); BLOOD UREA NITROGEN 24 mg/dL (9-20); CALCIUM 8.5 mg/dl (8.6-10.4); GFR AFRICAN-AMERICAN > 60; GFR NON-AFRICAN AMERICAN > 60
[2017-07-01] MEDS ORDERED: (Novolog) Insulin Aspart, Recombinant 100 u/ml 10 ml vial SC SCH (07:30)
[2017-07-01] MEDS: (Novolog) Insulin Aspart, Recombinant 100 u/ml 10 ml vial SC SCH ×7 (07:36→21:41)
[2017-07-01] MEDS: Potassium & Sodium Phosphate PO SCH ×3 (08:43→21:33)
--- NOTE | 2017-07-01 10:12 | CON ---
DATE: INFECTIOUS DISEASE CONSULTATION LOCATION: The patient in ICU, bed 6. DICTATION DONE BY: Aislinn Edge MD REASON FOR CONSULTATION: Sepsis, DKA, and renal failure. HISTORY OF PRESENT ILLNESS: The patient is seen, x-rays reviewed, labs reviewed. Case discussed with staff. The patient is a 72-year-old male with past medical history of hypothyroidism, benign prostatic hypertrophy, hypercholesterolemia who presented to [facility] ER with history of poor appetite and generalized weakness. As reported, the patient's nephew gave the history and reported the patient was having some dizziness and headache last night prior to admission, and he gave the patient Aleve before going to bed. In the morning, the patient was found to have unstable gait which prompted him to come to the ER. Code sepsis was called as the patient was reported to be in sepsis. The patient also had blood sugars on admission more than 750 with serum lactate of 5.1. The patient was fairly dehydrated with sodium of 160, potassium of 3.4. Serum ketones were in moderate range. The patient was started on insulin drip and IV fluids were initiated. Infectious Disease consultation was also requested by the PMD for sepsis and diabetic ketoacidosis and acute renal failure. History obtained mainly from the chart as the patient was unable to give any details. The patient presently arousable but mumbling and unable to obtain any clear facts. The patient underwent a CT head which showed no intracranial pathology. No old lacunar infarct was seen in the right last radiata. Chest x-ray on admission was unremarkable. The patient was empirically started after appropriate cultures on IV Zosyn for code sepsis with a dose of 3.375 followed by 2.25 gm of Zosyn IV every 8 hours. Also the patient was given a stat dose of vancomycin on admission with follow up of 1 gm once a day daily to 24 hourly. ED course noted the patient received boluses of fluid as noted two times and also received antibiotics and insulin drip. Presently, the patient is off insulin drip with stable blood pressure. PAST MEDICAL HISTORY: As above, history of hypothyroidism, benign prostatic hypertrophy, hypercholesterolemia. ALLERGIES: NONE KNOWN. SURGICAL HISTORY: None. SOCIAL HISTORY: Unable to obtain but as reported denies alcohol, tobacco use, or drug use. FAMILY HISTORY: Noncontributory. MEDICATIONS: As per chart noted, Synthroid 25 mcg p.o. daily, Flomax 0.4 mg p.o. daily, and multivitamin. REVIEW OF SYSTEMS: Presently unable to obtain because of his mental status, and the patient also legally blind. As per HPI, gait could not be tested as noted. PHYSICAL EXAMINATION: GENERAL: The patient is arousable, appears chronically ill. VITAL SIGNS: Presently afebrile. Blood pressure of 150/79, respirations 18, pulse of 102, temperature 98.7, pulse ox 97% on room air. HEENT: Bilateral eye blindness. MOUTH: Tongue, no thrush noted. NECK: Appears to be supple. No lymphadenopathy appreciated. Carotids are normal bilaterally. JVP not elevated. LUNGS: Diminished breath sounds at the bases. CARDIOVASCULAR: S1, S2. Sinus tachycardia. ABDOMEN: Soft. Bowel sounds are present. Nontender. No masses palpable. EXTREMITIES: 1+ edema bilaterally. No cyanosis, clubbing, or edema noted. TIN ROOFER: Difficult to evaluate. The patient is presently arousable but confused, mumbles something difficult to understand. Reflexes appear to be normal. Babinski's are equivocal bilaterally. Cranial nerves, unable to follow commands. LABORATORY DATA: WBC is presently 12.6, hemoglobin is 15.5 from 20.4, hematocrit is 47 from 63.5, platelets are 137. Sodium 150 from 160, blood sugar is 300 to 270 in that range. Ketones, moderate. Liver function tests, slightly elevated AST of 94, ALT normal, alkaline phosphatase normal. Serum ketones, moderate present. Urinalysis, 3+ glucose, 1+ proteins, 1 wbc's, and 1 rbc's. Creatinine today 1.6, BUN of 53, better than before. Chest x-ray on admission was unremarkable. 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 IMPRESSION: 1. Altered mental status, questionable toxic metabolic encephalopathy. 2. Diabetic ketoacidosis. 3. Hypernatremia. 4. Dehydration. 5. Hypothyroidism. 6. Benign prostate hypertrophy. 7. Hypercholesterolemia. PLAN: Suggest pancultures. IV fluids as per lmft. Adequate control of blood sugars. The patient is presently off insulin drip and regular coverage. Continue IV Zosyn 2.25 gm every 8 hourly for now, started 06/29/2017. Continue IV vancomycin 1 gm every 24 hourly, started 06/29/2017. Follow up vancomycin trough prior to the fourth dose and keep between 10 and 20. Next, follow up renal function closely. Follow up neuro status closely. Questionable LP if neuro status does not improve and consider Neurology evaluation. Thank you very much for allowing me to participate in the care of your patient. We will follow along with you and make further recommendations as needed. Aislinn Edge MD
--- NOTE | 2017-07-01 11:44 | CP.CCUPN ---
<Lelo Perez - Last Filed: 07/01/17 12:04> CCU Subjective - Physician Review Subjective (Free Text): 07/01/17 10:30 Patient seen and examined at bedside. Per no acute events overnight. Patient is doing well, offers no complaints at this time. Off Insulin drip, started on Insulin SC. Plan to downgrade today. CCU Objective - Vital Signs / Intake & Output Vital Signs (Last 4 hours): Vital Signs Temp Pulse Resp BP Pulse Ox 07/01/17 10:54 74 12 112/55 L 97 07/01/17 10:00 73 19 96 07/01/17 09:54 77 15 116/62 92 L 07/01/17 09:00 74 25 H 96 07/01/17 08:55 76 22 108/63 98 07/01/17 08:00 68 20 95 07/01/17 07:54 69 19 122/54 L 96 07/01/17 07:45 97.8 F 95 Intake and Output (Last 8hrs): Intake & Output 06/30/17 07/01/17 07/01/17 22:59 06:59 14:59 Intake Total 1665 1225 625 Output Total 200 300 Balance 1465 1225 325 Weight 62.823 kg Intake: Intake, IV Amount 1275 1225 375 Left Antecubital 775 Right Antecubital 500 1225 375 Oral 390 250 Output: Urine 200 300 Condom 200 Urine, Voided 300 Other: # Voids Condom 1 - Physical Exam Head: Positive for: Atraumatic, Normocephalic Pupils: Positive for: Other (Patient is blind ) Extroacular Muscles: Positive for: EOMI Conjunctiva: Positive for: Normal Ears: Positive for: Other (Hearing aid in right ear) Mouth: Positive for: Moist Mucous Membranes Respiratory/Chest: Positive for: Clear to Auscultation, Good Air Exchange. Negative for: Respiratory Distress, Accessory Muscle Use Cardiovascular: Positive for: Regular Rate and Rhythm, Normal S1, S2 Abdomen: Positive for: Normal Bowel Sounds. Negative for: Tenderness Upper Extremity: Positive for: Normal Inspection Lower Extremity: Positive for: Normal Inspection Skin: Positive for: Warm, Dry, Normal Color Psychiatric: Positive for: Alert - Medications Active Medications: Active Medications Generic Name Dose Route Start Last Admin Trade Name Freq PRN Reason Stop Dose Admin Aspirin 81 mg 07/01/17 10:00 07/01/17 09:02 Ecotrin PO 81 mg DAILY ROYCE Administration Famotidine 20 mg 07/01/17 10:00 07/01/17 09:02 Pepcid IVP 20 mg DAILY ROYCE Administration Heparin Sodium (Porcine) 5,000 units 06/30/17 22:00 07/01/17 09:02 Heparin SC 5,000 units Q12 ROYCE Administration Vancomycin/Sodium Chloride 1 gm in 200 mls @ 133.333 mls/hr 06/30/17 18:00 17:21 Vancomycin 1 Gm/Ns 200 Ml IVPB 07/05/17 18:01 133.333 mls/hr Q24H ROYCE Administration Protocol Piperacillin Sod/Tazobactam Sod 2.25 gm in 50 mls @ 100 mls/hr 06/30/17 23:00 07/01/17 06:19 Zosyn 2.25 Gm Iv Premix IVPB 100 mls/hr Q8H ROYCE Administration Protocol Insulin Aspart 0 unit 06/30/17 16:30 07/01/17 11:15 Novolog SC Not Given ACHS ROYCE Insulin Aspart 12 unit 07/01/17 07:30 07/01/17 07:41 Novolog SC 12 unit AC [facility] Administration Insulin Glargine 24 unit 06/30/17 22:00 06/30/17 23:02 Lantus SC 24 u HS ROYCE Administration Levothyroxine Sodium 25 mcg 07/01/17 06:30 07/01/17 05:56 Synthroid PO 25 mcg DAILY@0630 ROYCE Administration Potassium Phos/Sodium Phos 2 pkt 07/01/17 08:00 07/01/17 08:43 Neutra-Phos PO 07/01/17 22:01 2 pkt Q8 ROYCE Administration Rosuvastatin Calcium 5 mg 06/30/17 22:00 06/30/17 22:56 Crestor PO 5 mg HS ROYCE Administration - Patient Studies Lab Studies: Microbiology Studies 06/29/17 Unknown MRSA Culture (Admit) - Final Naris MRSA NOT DETECTED 06/29/17 07:00 Blood Culture - Preliminary Blood NO GROWTH AFTER 24 HOURS 06/29/17 07:45 Blood Culture - Preliminary Blood NO GROWTH AFTER 24 HOURS 06/29/17 07:43 Urine Culture - Final Urine No Growth (<1,000 CFU/ML) Lab Studies 07/01/17 07/01/17 07/01/17 Range/Units 11:03 07:08 06:11 WBC (4.8-10.8) K/uL RBC (4.40-5.90) Mil/uL Hgb (12.0-18.0) g/dL Hct (35.0-51.0) % MCV (80.0-94.0) fL MCH (27.0-31.0) pg MCHC (33.0-37.0) g/dL RDW (11.5-14.5) % Plt Count (130-400) K/uL MPV (7.2-11.7) fL Neut % (Auto) (50.0-75.0) % Lymph % (Auto) (20.0-40.0) % [place] % (Auto) (0.0-10.0) % Eos % (Auto) (0.0-4.0) % Baso % (Auto) (0.0-2.0) % Neut # (Auto) (1.8-7.0) K/uL Lymph # (Auto) (1.0-4.3) K/uL [place] # (Auto) (0.0-0.8) K/uL Eos # (Auto) (0.0-0.7) K/uL Baso # (Auto) (0.0-0.2) K/uL Differential Comment Sodium 148 (132-148) mmol/L Potassium 3.9 (3.6-5.2) mmol/L Chloride 110 H (98-107) mmol/L Carbon Dioxide 25 (22-30) mmol/L Anion Gap 17 (10-20) BUN 24 H (9-20) mg/dL Creatinine 1.0 (0.8-1.5) mg/dL Est GFR ( Amer) > 60 Est GFR (Non-Af Amer) > 60 POC Glucose (mg/dL) 76 186 H (65-110) mg/dL Random Glucose 189 H (75-110) mg/dL Calcium 8.5 L (8.6-10.4) mg/dl Phosphorus 1.7 L (2.5-4.5) mg/dL Magnesium 2.2 (1.6-2.3) mg/dL Total Bilirubin 0.9 (0.2-1.3) mg/dL AST 155 H D (17-59) U/L ALT 76 H D (21-72) U/L Alkaline Phosphatase 84 (38-126) U/L Total Protein 7.0 (6.3-8.3) g/dL Albumin 3.2 L (3.5-5.0) g/dL Globulin 3.8 (2.2-3.9) gm/dL Albumin/Globulin Ratio 0.8 L (1.0-2.1) 07/01/17 06/30/17 06/30/17 Range/Units 06:11 21:16 16:03 WBC 10.8 (4.8-10.8) K/uL RBC 4.99 (4.40-5.90) Mil/uL Hgb 16.0 (12.0-18.0) g/dL Hct 48.3 (35.0-51.0) % MCV 96.8 H (80.0-94.0) fL MCH 32.0 H (27.0-31.0) pg MCHC 33.1 (33.0-37.0) g/dL RDW 13.2 (11.5-14.5) % Plt Count 127 L (130-400) K/uL MPV 10.1 (7.2-11.7) fL Neut % (Auto) 75.2 H (50.0-75.0) % Lymph % (Auto) 18.6 L (20.0-40.0) % [place] % (Auto) 3.5 (0.0-10.0) % Eos % (Auto) 2.2 (0.0-4.0) % Baso % (Auto) 0.5 (0.0-2.0) % Neut # (Auto) 8.1 H (1.8-7.0) K/uL Lymph # (Auto) 2.0 (1.0-4.3) K/uL [place] # (Auto) 0.4 (0.0-0.8) K/uL Eos # (Auto) 0.2 (0.0-0.7) K/uL Baso # (Auto) 0.1 (0.0-0.2) K/uL Differential Comment Sodium (132-148) mmol/L Potassium (3.6-5.2) mmol/L Chloride (98-107) mmol/L Carbon Dioxide (22-30) mmol/L Anion Gap (10-20) BUN (9-20) mg/dL Creatinine (0.8-1.5) mg/dL Est GFR ( Amer) Est GFR (Non-Af Amer) POC Glucose (mg/dL) 177 H 274 H (65-110) mg/dL Random Glucose (75-110) mg/dL Calcium (8.6-10.4) mg/dl Phosphorus (2.5-4.5) mg/dL Magnesium (1.6-2.3) mg/dL Total Bilirubin (0.2-1.3) mg/dL AST (17-59) U/L ALT (21-72) U/L Alkaline Phosphatase (38-126) U/L Total Protein (6.3-8.3) g/dL Albumin (3.5-5.0) g/dL Globulin (2.2-3.9) gm/dL Albumin/Globulin Ratio (1.0-2.1) Laboratory Results - last 24 hr 06/30/17 06/30/17 07/01/17 16:03 21:16 06:11 WBC 10.8 RBC 4.99 Hgb 16.0 Hct 48.3 MCV 96.8 H MCH 32.0 H MCHC 33.1 RDW 13.2 Plt Count 127 L MPV 10.1 Neut % (Auto) 75.2 H Lymph % (Auto) 18.6 L [place] % (Auto) 3.5 Eos % (Auto) 2.2 Baso % (Auto) 0.5 Neut # (Auto) 8.1 H Lymph # (Auto) 2.0 [place] # (Auto) 0.4 Eos # (Auto) 0.2 Baso # (Auto) 0.1 Differential Comment Sodium Potassium Chloride Carbon Dioxide Anion Gap BUN Creatinine Est GFR ( Amer) Est GFR (Non-Af Amer) POC Glucose (mg/dL) 274 H 177 H Random Glucose Calcium Phosphorus Magnesium Total Bilirubin AST ALT Alkaline Phosphatase Total Protein Albumin Globulin Albumin/Globulin Ratio 07/01/17 07/01/17 07/01/17 06:11 07:08 11:03 WBC RBC Hgb Hct MCV MCH MCHC RDW Plt Count MPV Neut % (Auto) Lymph % (Auto) [place] % (Auto) Eos % (Auto) Baso % (Auto) Neut # (Auto) Lymph # (Auto) [place] # (Auto) Eos # (Auto) Baso # (Auto) Differential Comment Sodium 148 Potassium 3.9 Chloride 110 H Carbon Dioxide 25 Anion Gap 17 BUN 24 H Creatinine 1.0 Est GFR ( Amer) > 60 Est GFR (Non-Af Amer) > 60 POC Glucose (mg/dL) 186 H 76 Random Glucose 189 H Calcium 8.5 L Phosphorus 1.7 L Magnesium 2.2 Total Bilirubin 0.9 AST 155 H D ALT 76 H D Alkaline Phosphatase 84 Total Protein 7.0 Albumin 3.2 L Globulin 3.8 Albumin/Globulin Ratio 0.8 L Fingerstick Blood Sugar Results: 76 Critical Care Progress Note - Nutrition Nutrition: Nutrition Category Date Time Status Diabetic [Consistent Carbohydrate] [DIET] Diets 06/30/17 Lunch Active Assessment/Plan - Assessment and Plan (Free Text) Assessment: Patient is a 72 year old male with past medical history of BPH, hypothyroidism who presented with decreased appetite x 3 days, generalized weakness and unstable gait. Code sepsis was called in the ED. Source unknown at this time. Neurology: -Patient is AAOx2 (person and place) -CT head: No acute intracranial abnormality. Old lacunar infarction in the right last radiata. Mild chronic microangiopathic changes and moderate age- related global parenchymal volume loss -Aspiration precautions, Fall precautions -Physical therapy/Occupational therapy ordered Cardiology: -Tachycardia resolved -TSH and Free T4 within normal limits -Continue Synthroid 25mcg PO daily -Started on Crestor 5mg PO HS, on hold due to elevation of LFTs -Continue Aspirin 81mg PO daily -Will hold starting Lisinopril in light of renal failure Respiratory: -CXR 06/29: No active disease -No acute issues at this time GI: -Continue regular diet -Pepcid 20mg IVP daily for GI ppx -Monitor bowel function -AST/ALT: 155/76, continue to monitor -Crestor on hold at this time Endocrine: -Patient with history of Hypothyroidism -Continue Synthroid 25mcg PO daily at home -Family denies prior history diabetes, Patient presented with DKA -Serum glucose 1108 on admission; HgA1C 12.9 -Insulin drip discontinued -Continue Lantus to 24 units QHS -Novolog 12 units ACTID, Accuchecks ACHS -Continue Insulin sliding scale -Endocrine consulted, Dr Dior, help appreciated Heme/Onc: -Hgb/Hct stable -No acute issues at this time Renal: -Renal function improved -Baseline renal function unknown -Continue IV fluid hydration -Sodium down to 150, will continue to monitor Infectious Disease: -Patient is code sepsis -Lactate on VBG 5.1, repeat lactate 3.3 -S/P NS 1L bolus x 2 in the ED, Received vanco and zosyn -Source is unknown at this time, but likely secondary to DKA -Leukocytosis resolved -Continue 1/2 NS at 125cc/hr -Blood cultures, urine cultures negative -Antibiotics: Vancomycin 1gm IV Q24H, Zosyn 2.25mg IV Q8H GI/DVT ppx: -Pepcid 20mg PO daily -Heparin 5000 units SC Q12H <Zeus Araya - Last Filed: 07/01/17 15:56> CCU Objective - Vital Signs / Intake & Output Vital Signs (Last 4 hours): Vital Signs Temp Pulse Resp BP Pulse Ox 07/01/17 15:00 72 13 07/01/17 14:55 72 14 115/58 L 07/01/17 14:00 72 18 07/01/17 13:55 69 16 116/56 L 07/01/17 13:00 81 22 96 07/01/17 12:54 78 16 92/53 L 97 07/01/17 12:00 98.1 F 72 18 Intake and Output (Last 8hrs): Intake & Output 07/01/17 07/01/17 07/01/17 06:59 14:59 22:59 Intake Total 1225 775 50 Output Total 600 Balance 1225 175 50 Weight 138 lb 8 oz Intake: Intake, IV Amount 1225 375 Right Antecubital 1225 375 Oral 400 50 Output: Urine 600 Urine, Voided 600 - Medications Active Medications: Active Medications Generic Name Dose Route Start Last Admin Trade Name Freq PRN Reason Stop Dose Admin Aspirin 81 mg 07/01/17 10:00 07/01/17 09:02 Ecotrin PO 81 mg DAILY ROYCE Administration Famotidine 20 mg 07/02/17 10:00 Pepcid PO DAILY ROYCE Heparin Sodium (Porcine) 5,000 units 06/30/17 22:00 07/01/17 09:02 Heparin SC 5,000 units Q12 ROYCE Administration Vancomycin/Sodium Chloride 1 gm in 200 mls @ 133.333 mls/hr 06/30/17 18:00 17:21 Vancomycin 1 Gm/Ns 200 Ml IVPB 07/05/17 18:01 133.333 mls/hr Q24H ROYCE Administration Protocol Piperacillin Sod/Tazobactam Sod 2.25 gm in 50 mls @ 100 mls/hr 06/30/17 23:00 07/01/17 14:22 Zosyn 2.25 Gm Iv Premix IVPB 100 mls/hr Q8H ROYCE Administration Protocol Insulin Aspart 0 unit 06/30/17 16:30 07/01/17 11:15 Novolog SC Not Given ACHS ROYCE Insulin Aspart 6 unit 07/01/17 16:30 Novolog SC AC ROYCE Insulin Glargine 24 unit 06/30/17 22:00 06/30/17 23:02 Lantus SC 24 u HS ROYCE Administration Levothyroxine Sodium 25 mcg 07/01/17 06:30 07/01/17 05:56 Synthroid PO 25 mcg DAILY@0630 ROYCE Administration Potassium Phos/Sodium Phos 2 pkt 07/01/17 08:00 07/01/17 13:02 Neutra-Phos PO 07/01/17 22:01 2 pkt Q8 ROYCE Administration Rosuvastatin Calcium 5 mg 06/30/17 22:00 06/30/17 22:56 Crestor PO 5 mg HS ROYCE Administration - Patient Studies Lab Studies: Microbiology Studies 06/29/17 Unknown MRSA Culture (Admit) - Final Naris MRSA NOT DETECTED 06/29/17 07:00 Blood Culture - Preliminary Blood NO GROWTH AFTER 24 HOURS 06/29/17 07:45 Blood Culture - Preliminary Blood NO GROWTH AFTER 24 HOURS Lab Studies 07/01/17 07/01/17 07/01/17 Range/Units 11:03 07:08 06:11 WBC (4.8-10.8) K/uL RBC (4.40-5.90) Mil/uL Hgb (12.0-18.0) g/dL Hct (35.0-51.0) % MCV (80.0-94.0) fL MCH (27.0-31.0) pg MCHC (33.0-37.0) g/dL RDW (11.5-14.5) % Plt Count (130-400) K/uL MPV (7.2-11.7) fL Neut % (Auto) (50.0-75.0) % Lymph % (Auto) (20.0-40.0) % [place] % (Auto) (0.0-10.0) % Eos % (Auto) (0.0-4.0) % Baso % (Auto) (0.0-2.0) % Neut # (Auto) (1.8-7.0) K/uL Lymph # (Auto) (1.0-4.3) K/uL [place] # (Auto) (0.0-0.8) K/uL Eos # (Auto) (0.0-0.7) K/uL Baso # (Auto) (0.0-0.2) K/uL Differential Comment Sodium 148 (132-148) mmol/L Potassium 3.9 (3.6-5.2) mmol/L Chloride 110 H (98-107) mmol/L Carbon Dioxide 25 (22-30) mmol/L Anion Gap 17 (10-20) BUN 24 H (9-20) mg/dL Creatinine 1.0 (0.8-1.5) mg/dL Est GFR ( Amer) > 60 Est GFR (Non-Af Amer) > 60 POC Glucose (mg/dL) 76 186 H (65-110) mg/dL Random Glucose 189 H (75-110) mg/dL Calcium 8.5 L (8.6-10.4) mg/dl Phosphorus 1.7 L (2.5-4.5) mg/dL Magnesium 2.2 (1.6-2.3) mg/dL Total Bilirubin 0.9 (0.2-1.3) mg/dL AST 155 H D (17-59) U/L ALT 76 H D (21-72) U/L Alkaline Phosphatase 84 (38-126) U/L Total Protein 7.0 (6.3-8.3) g/dL Albumin 3.2 L (3.5-5.0) g/dL Globulin 3.8 (2.2-3.9) gm/dL Albumin/Globulin Ratio 0.8 L (1.0-2.1) 07/01/17 06/30/17 06/30/17 Range/Units 06:11 21:16 16:03 WBC 10.8 (4.8-10.8) K/uL RBC 4.99 (4.40-5.90) Mil/uL Hgb 16.0 (12.0-18.0) g/dL Hct 48.3 (35.0-51.0) % MCV 96.8 H (80.0-94.0) fL MCH 32.0 H (27.0-31.0) pg MCHC 33.1 (33.0-37.0) g/dL RDW 13.2 (11.5-14.5) % Plt Count 127 L (130-400) K/uL MPV 10.1 (7.2-11.7) fL Neut % (Auto) 75.2 H (50.0-75.0) % Lymph % (Auto) 18.6 L (20.0-40.0) % [place] % (Auto) 3.5 (0.0-10.0) % Eos % (Auto) 2.2 (0.0-4.0) % Baso % (Auto) 0.5 (0.0-2.0) % Neut # (Auto) 8.1 H (1.8-7.0) K/uL Lymph # (Auto) 2.0 (1.0-4.3) K/uL [place] # (Auto) 0.4 (0.0-0.8) K/uL Eos # (Auto) 0.2 (0.0-0.7) K/uL Baso # (Auto) 0.1 (0.0-0.2) K/uL Differential Comment Sodium (132-148) mmol/L Potassium (3.6-5.2) mmol/L Chloride (98-107) mmol/L Carbon Dioxide (22-30) mmol/L Anion Gap (10-20) BUN (9-20) mg/dL Creatinine (0.8-1.5) mg/dL Est GFR ( Amer) Est GFR (Non-Af Amer) POC Glucose (mg/dL) 177 H 274 H (65-110) mg/dL Random Glucose (75-110) mg/dL Calcium (8.6-10.4) mg/dl Phosphorus (2.5-4.5) mg/dL Magnesium (1.6-2.3) mg/dL Total Bilirubin (0.2-1.3) mg/dL AST (17-59) U/L ALT (21-72) U/L Alkaline Phosphatase (38-126) U/L Total Protein (6.3-8.3) g/dL Albumin (3.5-5.0) g/dL Globulin (2.2-3.9) gm/dL Albumin/Globulin Ratio (1.0-2.1) Laboratory Results - last 24 hr 06/30/17 06/30/17 07/01/17 16:03 21:16 06:11 WBC 10.8 RBC 4.99 Hgb 16.0 Hct 48.3 MCV 96.8 H MCH 32.0 H MCHC 33.1 RDW 13.2 Plt Count 127 L MPV 10.1 Neut % (Auto) 75.2 H Lymph % (Auto) 18.6 L [place] % (Auto) 3.5 Eos % (Auto) 2.2 Baso % (Auto) 0.5 Neut # (Auto) 8.1 H Lymph # (Auto) 2.0 [place] # (Auto) 0.4 Eos # (Auto) 0.2 Baso # (Auto) 0.1 Differential Comment Sodium Potassium Chloride Carbon Dioxide Anion Gap BUN Creatinine Est GFR ( Amer) Est GFR (Non-Af Amer) POC Glucose (mg/dL) 274 H 177 H Random Glucose Calcium Phosphorus Magnesium Total Bilirubin AST ALT Alkaline Phosphatase Total Protein Albumin Globulin Albumin/Globulin Ratio 07/01/17 07/01/17 07/01/17 06:11 07:08 11:03 WBC RBC Hgb Hct MCV MCH MCHC RDW Plt Count MPV Neut % (Auto) Lymph % (Auto) [place] % (Auto) Eos % (Auto) Baso % (Auto) Neut # (Auto) Lymph # (Auto) [place] # (Auto) Eos # (Auto) Baso # (Auto) Differential Comment Sodium 148 Potassium 3.9 Chloride 110 H Carbon Dioxide 25 Anion Gap 17 BUN 24 H Creatinine 1.0 Est GFR ( Amer) > 60 Est GFR (Non-Af Amer) > 60 POC Glucose (mg/dL) 186 H 76 Random Glucose 189 H Calcium 8.5 L Phosphorus 1.7 L Magnesium 2.2 Total Bilirubin 0.9 AST 155 H D ALT 76 H D Alkaline Phosphatase 84 Total Protein 7.0 Albumin 3.2 L Globulin 3.8 Albumin/Globulin Ratio 0.8 L Critical Care Progress Note - Nutrition Nutrition: Nutrition Category Date Time Status Diabetic [Consistent Carbohydrate] [DIET] Diets 06/30/17 Lunch Active Assessment/Plan - Assessment and Plan (Free Text) Plan: Above resident note documents ny history and physical exam and my management. Patient's Anion gap DKA resolved -tolerating oral diet -tolerating sub Q medicine -Patient is hemodynamically stable - Date & Time Date: 07/01/17 Time: 15:56
[2017-07-01] MEDS ORDERED: (Novolog) Insulin Aspart, Recombinant 100 u/ml 10 ml vial SC ONE (13:00)
[2017-07-01] MEDS: Vancomycin 1 gm/NS 200 ml 1 GM/200 ML BAG IVPB SCH (17:23)
--- NOTE | 2017-07-01 17:40 | CP.PCM.PN ---
Subjective - Date & Time of Evaluation Date of Evaluation: 07/01/17 Time of Evaluation: 17:40 - Subjective Subjective: PT SEEN IN ICU.-6 afebrile, awake and alert. spoke to pt with SALES ORDER ADMINISTRATOR.RN OFFERS NO COMPLAINTS. DENIES HEADACHE. FEELING BETTER LABS REVIEWED. MRSA NOT DETECTED. BLOOD CULTURES -VE TO DATE Objective - Vital Signs/Intake and Output Vital Signs (last 24 hours): Temp Pulse Resp BP Pulse Ox 98.1 F 70 14 107/59 L 96 07/01/17 16:00 07/01/17 16:00 07/01/17 16:00 07/01/17 15:54 07/01/17 13:00 Intake and Output: 07/01/17 07/01/17 06:59 18:59 Intake Total 2115 875 Output Total 600 Balance 2115 275 - Medications Medications: Current Medications Aspirin (Ecotrin) 81 mg PO DAILY [facility] Last Admin: 07/01/17 09:02 Dose: 81 mg Famotidine (Pepcid) 20 mg PO DAILY [facility] Heparin Sodium (Porcine) (Heparin) 5,000 units SC Q12 [facility] Last Admin: 07/01/17 09:02 Dose: 5,000 units Vancomycin/Sodium Chloride (Vancomycin 1 Gm/Ns 200 Ml) 1 gm in 200 mls @ 133.333 mls/hr IVPB Q24H [facility] PRN Reason: Protocol Stop: 07/05/17 18:01 Last Admin: 07/01/17 17:23 Dose: 133.333 mls/hr Piperacillin Sod/Tazobactam Sod (Zosyn 2.25 Gm Iv Premix) 2.25 gm in 50 mls @ 100 mls/hr IVPB Q8H [facility] PRN Reason: Protocol Last Admin: 07/01/17 14:22 Dose: 100 mls/hr Insulin Aspart (Novolog) 0 unit SC ACHS [facility] Last Admin: 07/01/17 16:15 Dose: Not Given Insulin Aspart (Novolog) 6 unit SC AC [facility] Last Admin: 07/01/17 16:44 Dose: 6 unit Insulin Glargine (Lantus) 24 unit SC HS [facility] Last Admin: 06/30/17 23:02 Dose: 24 u Levothyroxine Sodium (Synthroid) 25 mcg PO DAILY@0630 [facility] Last Admin: 07/01/17 05:56 Dose: 25 mcg Potassium Phos/Sodium Phos (Neutra-Phos) 2 pkt PO Q8 [facility]YCE Stop: 07/01/17 22:01 Last Admin: 07/01/17 13:02 Dose: 2 pkt Rosuvastatin Calcium (Crestor) 5 mg PO HS [facility] Last Admin: 06/30/17 22:56 Dose: 5 mg - Labs Labs: 07/01/17 06:11 07/01/17 06:11 PT 11.1 SECONDS (9.7-12.2) 06/29/17 07:08 INR 1.0 06/29/17 07:08 APTT 32 SECONDS (21-34) 06/29/17 07:08 - Constitutional Appears: No Acute Distress - Head Exam Head Exam: NORMAL INSPECTION - Eye Exam Additional comments: PT BLIND BOTH EYES - ENT Exam ENT Exam: Mucous Membranes Moist - Neck Exam Neck Exam: Normal Inspection. absent: Meningismus - Respiratory Exam Respiratory Exam: Clear to Ausculation Bilateral - Cardiovascular Exam Cardiovascular Exam: REGULAR RHYTHM, +S1 - GI/Abdominal Exam GI & Abdominal Exam: Soft, Normal Bowel Sounds - Extremities Exam Extremities Exam: absent: Calf Tenderness, Pedal Edema - Neurological Exam Neurological Exam: Awake, Oriented x3 - Psychiatric Exam Psychiatric exam: Normal Mood - Skin Skin Exam: Normal Color, Warm Assessment and Plan - Assessment and Plan (Free Text) Assessment: IMPRESSION; AMS ? TOXIC METABOLIC ENCEPHALOPATHY./(IMPROVED ) DIABETIC KETOACIDOSIS. HYPERNATREMIA. SEVERE DEHYDRATION. HYPOTHYROIDISM BENIGN PROSTATIC HYPERTROPHY. HYPERCHOLESTEROLEMIA. PLAN iv FLUIDS PER COURIER DELIVERY DRIVER. PATIENT OFF INSULIN DRIP-1 AND REGULAR COVERAGE. CONTINUE iv zOSYN 2.25 G EVERY 8 HOURLY 06/29/17 DC iv VANCOMYCIN 1 G EVERY 24 HOURLY 06/29/17. fOLLOW-UP LFTS fOLLOW-UP NEURO STATUS CLOSELY. PATIENT FOR TRANSFER TO THE FLOOR PER RN REPORT.
--- NOTE | 2017-07-01 18:21 | CP.PCM.PN ---
Subjective - Date & Time of Evaluation Date of Evaluation: 07/01/17 Time of Evaluation: 11:40 - Subjective Subjective: clinically same Objective - Vital Signs/Intake and Output Vital Signs (last 24 hours): Temp Pulse Resp BP Pulse Ox 98.1 F 85 22 112/56 L 96 07/01/17 16:00 07/01/17 18:00 07/01/17 18:00 07/01/17 17:54 07/01/17 13:00 Intake and Output: 07/01/17 07/01/17 06:59 18:59 Intake Total 2115 1075 Output Total 600 Balance 2115 475 - Medications Medications: Current Medications Aspirin (Ecotrin) 81 mg PO DAILY [facility] Last Admin: 07/01/17 09:02 Dose: 81 mg Famotidine (Pepcid) 20 mg PO DAILY [facility] Heparin Sodium (Porcine) (Heparin) 5,000 units SC Q12 [facility] Last Admin: 07/01/17 09:02 Dose: 5,000 units Vancomycin/Sodium Chloride (Vancomycin 1 Gm/Ns 200 Ml) 1 gm in 200 mls @ 133.333 mls/hr IVPB Q24H [facility] PRN Reason: Protocol Stop: 07/05/17 18:01 Last Admin: 07/01/17 17:23 Dose: 133.333 mls/hr Piperacillin Sod/Tazobactam Sod (Zosyn 2.25 Gm Iv Premix) 2.25 gm in 50 mls @ 100 mls/hr IVPB Q8H [facility] PRN Reason: Protocol Last Admin: 07/01/17 14:22 Dose: 100 mls/hr Insulin Aspart (Novolog) 0 unit SC ACHS [facility] Last Admin: 07/01/17 16:15 Dose: Not Given Insulin Aspart (Novolog) 6 unit SC AC [facility] Last Admin: 07/01/17 16:44 Dose: 6 unit Insulin Glargine (Lantus) 24 unit SC HS [facility] Last Admin: 06/30/17 23:02 Dose: 24 u Levothyroxine Sodium (Synthroid) 25 mcg PO DAILY@0630 [facility] Last Admin: 07/01/17 05:56 Dose: 25 mcg Potassium Phos/Sodium Phos (Neutra-Phos) 2 pkt PO Q8 [facility] Stop: 07/01/17 22:01 Last Admin: 07/01/17 13:02 Dose: 2 pkt Rosuvastatin Calcium (Crestor) 5 mg PO HS [facility] Last Admin: 06/30/17 22:56 Dose: 5 mg - Labs Labs: 07/01/17 06:11 07/01/17 06:11 PT 11.1 SECONDS (9.7-12.2) 06/29/17 07:08 INR 1.0 06/29/17 07:08 APTT 32 SECONDS (21-34) 06/29/17 07:08 - Constitutional Appears: Well - Head Exam Head Exam: ATRAUMATIC, NORMAL INSPECTION, NORMOCEPHALIC - Eye Exam Eye Exam: EOMI, Normal appearance, PERRL Pupil Exam: NORMAL ACCOMODATION, PERRL - ENT Exam ENT Exam: Mucous Membranes Moist, Normal Exam - Neck Exam Neck Exam: Full ROM, Normal Inspection. absent: Lymphadenopathy - Respiratory Exam Respiratory Exam: Decreased Breath Sounds - Cardiovascular Exam Cardiovascular Exam: REGULAR RHYTHM, +S1, +S2 - GI/Abdominal Exam GI & Abdominal Exam: Soft, Diminished Bowel Sounds - Rectal Exam Rectal Exam: Deferred
[2017-07-01] MEDS: (Lantus) Insulin Glargine, Recombinant SC SCH (21:32)
--- NOTE | 2017-07-01 22:44 | CARD ---
APPROVED REPORT EKG Measurement Heart [id number] ND [id number] <Conclusion> Sinus tachycardia Nonspecific ST and T wave abnormality Abnormal ECG
[2017-07-02] MEDS: Levothyroxine 25 MCG TAB PO SCH (06:04)
[2017-07-02] MEDS: Piperacill/Tazo 2.25gm in Dex 2.25 GM/50 ML BAG IVPB SCH ×3 (06:04→22:16)
[2017-07-02 06:30] LABS: BASO % 0.4 % (0.0-2.0); EOS # 0.2 K/uL (0.0-0.7); EOS % 2.7 % (0.0-4.0); LYMPH # 1.2 K/uL (1.0-4.3); LYMPH % 16.5 % (20.0-40.0); MEAN CELL VOLUME 96.4 fL (80.0-94.0); MEAN CORPUSCULAR HGB CONC 34.2 g/dL (33.0-37.0); MEAN PLATELET VOLUME 10.4 fL (7.2-11.7); MONO # 0.4 K/uL (0.0-0.8); MONO % 5.9 % (0.0-10.0); NEUT # 5.5 K/uL (1.8-7.0); NEUT % 74.5 % (50.0-75.0); NRBC % 0.1 % (0.0-2.0); RBC 4.54 Mil/uL (4.40-5.90); WHITE BLOOD COUNT 7.3 K/uL (4.8-10.8)
[2017-07-02 06:39] LABS: ALB/GLOB RATIO 0.8 (1.0-2.1); ALBUMIN 2.8 g/dL (3.5-5.0); ALT/SGPT 80 U/L (21-72); AST/SGOT 109 U/L (17-59); BLOOD UREA NITROGEN 13 mg/dL (9-20); CALCIUM 8.3 mg/dl (8.6-10.4); GFR AFRICAN-AMERICAN > 60; GFR NON-AFRICAN AMERICAN > 60
[2017-07-02] MEDS: (Novolog) Insulin Aspart, Recombinant 100 u/ml 10 ml vial SC SCH ×7 (08:03→21:32)
--- NOTE | 2017-07-02 13:38 | CP.PCM.PN ---
Subjective - Date & Time of Evaluation Date of Evaluation: 07/02/17 Time of Evaluation: 08:40 - Subjective Subjective: clinically same Objective - Vital Signs/Intake and Output Vital Signs (last 24 hours): Temp Pulse Resp BP Pulse Ox 98.1 F 88 19 120/74 96 07/02/17 08:59 07/02/17 08:59 07/02/17 08:59 07/02/17 08:59 07/02/17 08:59 Intake and Output: 07/02/17 07/02/17 06:59 18:59 Intake Total 460 Output Total 500 Balance -40 - Medications Medications: Current Medications Aspirin (Ecotrin) 81 mg PO DAILY [facility] Last Admin: 07/02/17 10:14 Dose: 81 mg Famotidine (Pepcid) 20 mg PO DAILY [facility] Last Admin: 07/02/17 10:13 Dose: 20 mg Heparin Sodium (Porcine) (Heparin) 5,000 units SC Q12 [facility] Last Admin: 07/02/17 10:14 Dose: 5,000 units Vancomycin/Sodium Chloride (Vancomycin 1 Gm/Ns 200 Ml) 1 gm in 200 mls @ 133.333 mls/hr IVPB Q24H [facility] PRN Reason: Protocol Stop: 07/05/17 18:01 Last Admin: 07/01/17 17:23 Dose: 133.333 mls/hr Piperacillin Sod/Tazobactam Sod (Zosyn 2.25 Gm Iv Premix) 2.25 gm in 50 mls @ 100 mls/hr IVPB Q8H [facility] PRN Reason: Protocol Last Admin: 07/02/17 06:04 Dose: 100 mls/hr Insulin Aspart (Novolog) 0 unit SC ACHS [facility] Last Admin: 07/02/17 12:33 Dose: Not Given Insulin Aspart (Novolog) 6 unit SC AC [facility] Last Admin: 07/02/17 08:08 Dose: 6 unit Insulin Glargine (Lantus) 24 unit SC HS [facility] Last Admin: 07/01/17 21:32 Dose: 12 u Levothyroxine Sodium (Synthroid) 25 mcg PO DAILY@0630 [facility] Last Admin: 07/02/17 06:04 Dose: 25 mcg Rosuvastatin Calcium (Crestor) 5 mg PO HS [facility] Last Admin: 06/30/17 22:56 Dose: 5 mg - Labs Labs: 07/02/17 06:15 07/02/17 06:14 PT 11.1 SECONDS (9.7-12.2) 06/29/17 07:08 INR 1.0 06/29/17 07:08 APTT 32 SECONDS (21-34) 06/29/17 07:08 - Constitutional Appears: Well - Head Exam Head Exam: ATRAUMATIC, NORMAL INSPECTION, NORMOCEPHALIC - Eye Exam Eye Exam: EOMI, Normal appearance, PERRL Pupil Exam: NORMAL ACCOMODATION, PERRL - ENT Exam ENT Exam: Mucous Membranes Moist, Normal Exam - Neck Exam Neck Exam: Full ROM, Normal Inspection. absent: Lymphadenopathy - Respiratory Exam Respiratory Exam: Decreased Breath Sounds - Cardiovascular Exam Cardiovascular Exam: REGULAR RHYTHM, +S1, +S2 - GI/Abdominal Exam GI & Abdominal Exam: Soft, Diminished Bowel Sounds - Rectal Exam Rectal Exam: Deferred
[2017-07-02] MEDS: Vancomycin 1 gm/NS 200 ml 1 GM/200 ML BAG IVPB SCH (17:00)
--- NOTE | 2017-07-02 18:17 | CP.CCUPN ---
CCU Objective - Vital Signs / Intake & Output Intake and Output (Last 8hrs): Intake & Output 07/02/17 07/02/17 07/02/17 06:59 14:59 22:59 Intake Total 460 1890 Output Total 500 850 Balance -40 1040 Intake: Intake, IV Amount 100 270 Right Forearm 100 270 Oral 360 1620 Output: Urine 500 850 Urine, Voided 500 850 Other: # Bowel Movements 2 3 - Physical Exam Head: Positive for: Atraumatic, Normocephalic Pupils: Positive for: Other (Patient is blind ) Extroacular Muscles: Positive for: EOMI Conjunctiva: Positive for: Normal Ears: Positive for: Other (Hearing aid in right ear) Mouth: Positive for: Moist Mucous Membranes Respiratory/Chest: Positive for: Clear to Auscultation, Good Air Exchange. Negative for: Respiratory Distress, Accessory Muscle Use Cardiovascular: Positive for: Regular Rate and Rhythm, Normal S1, S2 Abdomen: Positive for: Normal Bowel Sounds. Negative for: Tenderness Upper Extremity: Positive for: Normal Inspection Lower Extremity: Positive for: Normal Inspection Skin: Positive for: Warm, Dry, Normal Color Psychiatric: Positive for: Alert - Medications Active Medications: Active Medications Generic Name Dose Route Start Last Admin Trade Name Freq PRN Reason Stop Dose Admin Aspirin 81 mg 07/01/17 10:00 07/02/17 10:14 Ecotrin PO 81 mg DAILY [facility] Administration Famotidine 20 mg 07/02/17 10:00 07/02/17 10:13 Pepcid PO 20 mg DAILY [facility] Administration Heparin Sodium (Porcine) 5,000 units 06/30/17 22:00 07/02/17 10:14 Heparin SC 5,000 units Q12 [facility] Administration Vancomycin/Sodium Chloride 1 gm in 200 mls @ 133.333 mls/hr 06/30/17 18:00 17:00 Vancomycin 1 Gm/Ns 200 Ml IVPB 07/05/17 18:01 133.333 mls/hr Q24H [facility] Administration Protocol Piperacillin Sod/Tazobactam Sod 2.25 gm in 50 mls @ 100 mls/hr 06/30/17 23:00 07/02/17 15:15 Zosyn 2.25 Gm Iv Premix IVPB 100 mls/hr Q8H [facility] Administration Protocol Insulin Aspart 0 unit 06/30/17 16:30 07/02/17 16:30 Novolog SC Not Given ACHS [facility] Insulin Aspart 6 unit 07/01/17 16:30 07/02/17 16:30 Novolog SC 6 unit AC [facility] Administration Insulin Glargine 24 unit 06/30/17 22:00 07/01/17 21:32 Lantus SC 12 u HS [facility] Administration Levothyroxine Sodium 25 mcg 07/01/17 06:30 07/02/17 06:04 Synthroid PO 25 mcg DAILY@0630 [facility] Administration Rosuvastatin Calcium 5 mg 06/30/17 22:00 06/30/17 22:56 Crestor PO 5 mg HS [facility] Administration - Patient Studies Lab Studies: Microbiology Studies 06/29/17 07:00 Blood Culture - Preliminary Blood NO GROWTH AFTER 48 HOURS 06/29/17 07:45 Blood Culture - Preliminary Blood NO GROWTH AFTER 48 HOURS Lab Studies 07/02/17 07/02/17 07/02/17 Range/Units 16:09 11:56 07:14 WBC (4.8-10.8) K/uL RBC (4.40-5.90) Mil/uL Hgb (12.0-18.0) g/dL Hct (35.0-51.0) % MCV (80.0-94.0) fL MCH (27.0-31.0) pg MCHC (33.0-37.0) g/dL RDW (11.5-14.5) % Plt Count (130-400) K/uL MPV (7.2-11.7) fL Neut % (Auto) (50.0-75.0) % Lymph % (Auto) (20.0-40.0) % [place] % (Auto) (0.0-10.0) % Eos % (Auto) (0.0-4.0) % Baso % (Auto) (0.0-2.0) % Neut # (Auto) (1.8-7.0) K/uL Lymph # (Auto) (1.0-4.3) K/uL [place] # (Auto) (0.0-0.8) K/uL Eos # (Auto) (0.0-0.7) K/uL Baso # (Auto) (0.0-0.2) K/uL Sodium (132-148) mmol/L Potassium (3.6-5.2) mmol/L Chloride (98-107) mmol/L Carbon Dioxide (22-30) mmol/L Anion Gap (10-20) BUN (9-20) mg/dL Creatinine (0.8-1.5) mg/dL Est GFR ( Amer) Est GFR (Non-Af Amer) POC Glucose (mg/dL) 204 H 136 H 143 H (65-110) mg/dL Random Glucose (75-110) mg/dL Calcium (8.6-10.4) mg/dl Phosphorus (2.5-4.5) mg/dL Magnesium (1.6-2.3) mg/dL Total Bilirubin (0.2-1.3) mg/dL AST (17-59) U/L ALT (21-72) U/L Alkaline Phosphatase (38-126) U/L Total Protein (6.3-8.3) g/dL Albumin (3.5-5.0) g/dL Globulin (2.2-3.9) gm/dL Albumin/Globulin Ratio (1.0-2.1) 07/02/17 07/02/17 07/01/17 Range/Units 06:15 06:14 21:20 WBC 7.3 (4.8-10.8) K/uL RBC 4.54 (4.40-5.90) Mil/uL Hgb 15.0 (12.0-18.0) g/dL Hct 43.8 (35.0-51.0) % MCV 96.4 H (80.0-94.0) fL MCH 33.0 H (27.0-31.0) pg MCHC 34.2 (33.0-37.0) g/dL RDW 13.0 (11.5-14.5) % Plt Count 106 L D (130-400) K/uL MPV 10.4 (7.2-11.7) fL Neut % (Auto) 74.5 (50.0-75.0) % Lymph % (Auto) 16.5 L (20.0-40.0) % [place] % (Auto) 5.9 (0.0-10.0) % Eos % (Auto) 2.7 (0.0-4.0) % Baso % (Auto) 0.4 (0.0-2.0) % Neut # (Auto) 5.5 (1.8-7.0) K/uL Lymph # (Auto) 1.2 (1.0-4.3) K/uL [place] # (Auto) 0.4 (0.0-0.8) K/uL Eos # (Auto) 0.2 (0.0-0.7) K/uL Baso # (Auto) 0.0 (0.0-0.2) K/uL Sodium 145 (132-148) mmol/L Potassium 4.0 (3.6-5.2) mmol/L Chloride 110 H (98-107) mmol/L Carbon Dioxide 25 (22-30) mmol/L Anion Gap 14 (10-20) BUN 13 (9-20) mg/dL Creatinine 0.9 (0.8-1.5) mg/dL Est GFR ( Amer) > 60 Est GFR (Non-Af Amer) > 60 POC Glucose (mg/dL) 105 (65-110) mg/dL Random Glucose 141 H (75-110) mg/dL Calcium 8.3 L (8.6-10.4) mg/dl Phosphorus 2.4 L (2.5-4.5) mg/dL Magnesium 2.0 (1.6-2.3) mg/dL Total Bilirubin 0.7 (0.2-1.3) mg/dL AST 109 H D (17-59) U/L ALT 80 H (21-72) U/L Alkaline Phosphatase 91 (38-126) U/L Total Protein 6.4 (6.3-8.3) g/dL Albumin 2.8 L (3.5-5.0) g/dL Globulin 3.5 (2.2-3.9) gm/dL Albumin/Globulin Ratio 0.8 L (1.0-2.1) Laboratory Results - last 24 hr 07/01/17 07/02/17 07/02/17 21:20 06:14 06:15 WBC 7.3 RBC 4.54 Hgb 15.0 Hct 43.8 MCV 96.4 H MCH 33.0 H MCHC 34.2 RDW 13.0 Plt Count 106 L D MPV 10.4 Neut % (Auto) 74.5 Lymph % (Auto) 16.5 L [place] % (Auto) 5.9 Eos % (Auto) 2.7 Baso % (Auto) 0.4 Neut # (Auto) 5.5 Lymph # (Auto) 1.2 [place] # (Auto) 0.4 Eos # (Auto) 0.2 Baso # (Auto) 0.0 Sodium 145 Potassium 4.0 Chloride 110 H Carbon Dioxide 25 Anion Gap 14 BUN 13 Creatinine 0.9 Est GFR ( Amer) > 60 Est GFR (Non-Af Amer) > 60 POC Glucose (mg/dL) 105 Random Glucose 141 H Calcium 8.3 L Phosphorus 2.4 L Magnesium 2.0 Total Bilirubin 0.7 AST 109 H D ALT 80 H Alkaline Phosphatase 91 Total Protein 6.4 Albumin 2.8 L Globulin 3.5 Albumin/Globulin Ratio 0.8 L 07/02/17 07/02/17 07/02/17 07:14 11:56 16:09 WBC RBC Hgb Hct MCV MCH MCHC RDW Plt Count MPV Neut % (Auto) Lymph % (Auto) [place] % (Auto) Eos % (Auto) Baso % (Auto) Neut # (Auto) Lymph # (Auto) [place] # (Auto) Eos # (Auto) Baso # (Auto) Sodium Potassium Chloride Carbon Dioxide Anion Gap BUN Creatinine Est GFR ( Amer) Est GFR (Non-Af Amer) POC Glucose (mg/dL) 143 H 136 H 204 H Random Glucose Calcium Phosphorus Magnesium Total Bilirubin AST ALT Alkaline Phosphatase Total Protein Albumin Globulin Albumin/Globulin Ratio Fingerstick Blood Sugar Results: 204 Critical Care Progress Note - Nutrition Nutrition: Nutrition Category Date Time Status Diabetic [Consistent Carbohydrate] [DIET] Diets 06/30/17 Lunch Active
--- NOTE | 2017-07-02 19:12 | PN ---
DATE: LOCATION: ICU, room 6. SUBJECTIVE: This is a 72-year-old male with recent uncontrolled type 2 insulin requiring diabetes now, also presenting here with marked hyperglycemic accelerations and has now improved clinically and metabolically as noted overnight. His glucose levels have ranged from 105 to 143 mg/dL. The latest chemistries show a BUN of 13, sodium 145, potassium 4.0, chloride 110, CO2 25, glucose 141, and creatinine 0.9. So, at this time we will modify once again his basilar and bolus insulin regimen and keep him on the Lantus at 24 units subcu at bedtime daily, to start tonight. We will continue the NovoLog given as 6 units subcu t.i.d. before meals as ordered. We will titrate incrementally as indicated to optimize metabolic control. We will obtain serial chemistries and supplement accordingly as needed. We will follow with you. Helena Dior MD
--- NOTE | 2017-07-02 20:15 | CP.PCM.PN ---
Subjective - Date & Time of Evaluation Date of Evaluation: 07/02/17 Time of Evaluation: 20:15 - Subjective Subjective: AFEBRILE, AWAKE,ALERT no complaints. RESTING COMFORTABLY. LABS ; BLOOD CULTURES NEGATIVE TO DATE. uRINE CULTURE NEGATIVE TO DATE MRSA SCREEN NEGATIVE. PLAN ; DC IV VANCOMYCIN IN VIEW OF INCREASING THROMBOCYTOPENIA CONTINUE iv zOSYN 2.25 EVERY 8 HOURLY. Objective - Vital Signs/Intake and Output Vital Signs (last 24 hours): Temp Pulse Resp BP Pulse Ox 98.1 F 88 19 120/74 96 07/02/17 08:59 07/02/17 08:59 07/02/17 08:59 07/02/17 08:59 07/02/17 08:59 Intake and Output: 07/02/17 07/03/17 18:59 06:59 Intake Total 1890 Output Total 850 Balance 1040 - Medications Medications: Current Medications Aspirin (Ecotrin) 81 mg PO DAILY [facility] Last Admin: 07/02/17 10:14 Dose: 81 mg Famotidine (Pepcid) 20 mg PO DAILY [facility] Last Admin: 07/02/17 10:13 Dose: 20 mg Heparin Sodium (Porcine) (Heparin) 5,000 units SC Q12 [facility] Last Admin: 07/02/17 10:14 Dose: 5,000 units Vancomycin/Sodium Chloride (Vancomycin 1 Gm/Ns 200 Ml) 1 gm in 200 mls @ 133.333 mls/hr IVPB Q24H [facility] PRN Reason: Protocol Stop: 07/05/17 18:01 Last Admin: 07/02/17 17:00 Dose: 133.333 mls/hr Piperacillin Sod/Tazobactam Sod (Zosyn 2.25 Gm Iv Premix) 2.25 gm in 50 mls @ 100 mls/hr IVPB Q8H [facility] PRN Reason: Protocol Last Admin: 07/02/17 15:15 Dose: 100 mls/hr Insulin Aspart (Novolog) 0 unit SC ACHS [facility] Last Admin: 07/02/17 16:30 Dose: Not Given Insulin Aspart (Novolog) 6 unit SC AC [facility] Last Admin: 07/02/17 16:30 Dose: 6 unit Insulin Glargine (Lantus) 24 unit SC HS [facility] Last Admin: 07/01/17 21:32 Dose: 12 u Levothyroxine Sodium (Synthroid) 25 mcg PO DAILY@0630 [facility] Last Admin: 07/02/17 06:04 Dose: 25 mcg Rosuvastatin Calcium (Crestor) 5 mg PO HS [facility] Last Admin: 06/30/17 22:56 Dose: 5 mg - Labs Labs: 07/02/17 06:15 07/02/17 06:14 PT 11.1 SECONDS (9.7-12.2) 06/29/17 07:08 INR 1.0 06/29/17 07:08 APTT 32 SECONDS (21-34) 06/29/17 07:08 - Constitutional Appears: No Acute Distress - Head Exam Head Exam: NORMAL INSPECTION - Eye Exam Additional comments: PT BLIND. - ENT Exam ENT Exam: Normal Oropharynx - Neck Exam Neck Exam: Normal Inspection. absent: Meningismus - Respiratory Exam Respiratory Exam: Clear to Ausculation Bilateral - Cardiovascular Exam Cardiovascular Exam: REGULAR RHYTHM, +S1, +S2 - GI/Abdominal Exam GI & Abdominal Exam: Soft, Normal Bowel Sounds - Extremities Exam Extremities Exam: Normal Capillary Refill. absent: Calf Tenderness, Pedal Edema - Neurological Exam Neurological Exam: Awake, CN II-XII Intact, Oriented x3 - Psychiatric Exam Psychiatric exam: Normal Mood - Skin Skin Exam: Normal Color, Warm Assessment and Plan - Assessment and Plan (Free Text) Assessment: TOXIC METABOLIC ENCEPHALOPATHY./(IMPROVED ) DIABETIC KETOACIDOSIS. HYPERNATREMIA. SEVERE DEHYDRATION. HYPOTHYROIDISM BENIGN PROSTATIC HYPERTROPHY. HYPERCHOLESTEROLEMIA. PLAN iv FLUIDS PER FLOORWORKER LASTING. PATIENT OFF INSULIN DRIP-1 AND REGULAR COVERAGE. CONTINUE iv ZOSYN 2.25 G EVERY 8 HOURLY 06/29/17 DC iv VANCOMYCIN. 07/02/17 fOLLOW-UP LFTS F/U PLATELETS
[2017-07-02] MEDS: (Lantus) Insulin Glargine, Recombinant SC SCH (22:38)
[2017-07-03 02:17] VITALS: RESP 20
[2017-07-03] MEDS: Piperacill/Tazo 2.25gm in Dex 2.25 GM/50 ML BAG IVPB SCH ×3 (05:58→23:54)
[2017-07-03] MEDS: Levothyroxine 25 MCG TAB PO SCH (05:58)
[2017-07-03] MEDS: (Novolog) Insulin Aspart, Recombinant 100 u/ml 10 ml vial SC SCH ×7 (08:00→21:41)
--- NOTE | 2017-07-03 12:18 | PN ---
DATE: Room 359 SUBJECTIVE: This is a 72-year-old male with recent uncontrolled type 2 insulin requiring diabetes with previous diabetic ketoacidosis and dehydration and since then improved clinically and metabolically after the initiation of intensive insulin therapy and vigorous IV hydration as given. His glucose values overnight have ranged from 120 to 170 and 239 mg/dL. His latest chemistry showed a BUN of 13, sodium 145, potassium 4.0, chloride 110, CO2 of 25, glucose 141 and creatinine 0.9. At this time, we will continue the modified basal and bolus insulin regimen as given with NovoLog given as 6 units subcu t.i.d. and Lantus at 24 units subcu at bedtime daily as given. We will continue the modified and lower dose of the NovoLog coverage scale as given. We will also continue the low dose levothyroxine given as 25 mcg once daily as ordered. We will obtain serial chemistries and supplement accordingly as needed. We will follow and advise accordingly. Helena Dior MD
--- NOTE | 2017-07-03 18:21 | CP.PCM.PN ---
Subjective - Date & Time of Evaluation Date of Evaluation: 07/03/17 Time of Evaluation: 08:20 - Subjective Subjective: clinically same Objective - Vital Signs/Intake and Output Vital Signs (last 24 hours): Temp Pulse Resp BP Pulse Ox 97.6 F 74 20 162/68 H 96 07/03/17 15:00 07/03/17 15:00 07/03/17 15:00 07/03/17 15:00 07/03/17 15:00 Intake and Output: 07/03/17 07/03/17 06:59 18:59 Intake Total 720 Output Total 700 Balance 20 - Medications Medications: Current Medications Aspirin (Ecotrin) 81 mg PO DAILY [facility] Last Admin: 07/03/17 10:40 Dose: 81 mg Famotidine (Pepcid) 20 mg PO DAILY [facility] Last Admin: 07/03/17 10:40 Dose: 20 mg Heparin Sodium (Porcine) (Heparin) 5,000 units SC Q12 [facility] Last Admin: 07/03/17 10:39 Dose: 5,000 units Piperacillin Sod/Tazobactam Sod (Zosyn 2.25 Gm Iv Premix) 2.25 gm in 50 mls @ 100 mls/hr IVPB Q8H [facility] PRN Reason: Protocol Last Admin: 07/03/17 14:22 Dose: 100 mls/hr Insulin Aspart (Novolog) 0 unit SC ACHS [facility] Last Admin: 07/03/17 18:00 Dose: Not Given Insulin Aspart (Novolog) 6 unit SC AC [facility] Last Admin: 07/03/17 18:01 Dose: 6 unit Insulin Glargine (Lantus) 24 unit SC HS [facility] Last Admin: 07/02/17 22:38 Dose: 24 units Levothyroxine Sodium (Synthroid) 25 mcg PO DAILY@0630 [facility] Last Admin: 07/03/17 05:58 Dose: 25 mcg Rosuvastatin Calcium (Crestor) 5 mg PO HS [facility] Last Admin: 06/30/17 22:56 Dose: 5 mg - Labs Labs: 07/02/17 06:15 07/02/17 06:14 PT 11.1 SECONDS (9.7-12.2) 06/29/17 07:08 INR 1.0 06/29/17 07:08 APTT 32 SECONDS (21-34) 06/29/17 07:08 - Constitutional Appears: Well - Head Exam Head Exam: ATRAUMATIC, NORMAL INSPECTION, NORMOCEPHALIC - Eye Exam Eye Exam: EOMI, Normal appearance, PERRL Pupil Exam: NORMAL ACCOMODATION, PERRL - ENT Exam ENT Exam: Mucous Membranes Moist, Normal Exam - Neck Exam Neck Exam: Full ROM, Normal Inspection. absent: Lymphadenopathy - Respiratory Exam Respiratory Exam: Decreased Breath Sounds - Cardiovascular Exam Cardiovascular Exam: REGULAR RHYTHM, +S1, +S2 - GI/Abdominal Exam GI & Abdominal Exam: Soft, Diminished Bowel Sounds - Rectal Exam Rectal Exam: Deferred
[2017-07-03] MEDS: (Lantus) Insulin Glargine, Recombinant SC SCH (21:38)
[2017-07-04] MEDS: Levothyroxine 25 MCG TAB PO SCH (05:41)
[2017-07-04] MEDS: Piperacill/Tazo 2.25gm in Dex 2.25 GM/50 ML BAG IVPB SCH ×3 (06:36→22:05)
[2017-07-04 07:58] LABS: ALB/GLOB RATIO 0.8 (1.0-2.1); ALBUMIN 3.2 g/dL (3.5-5.0); ALT/SGPT 57 U/L (21-72); AST/SGOT 44 U/L (17-59); BLOOD UREA NITROGEN 8 mg/dL (9-20); CALCIUM 8.9 mg/dl (8.6-10.4); GFR AFRICAN-AMERICAN > 60; GFR NON-AFRICAN AMERICAN > 60
[2017-07-04] MEDS: (Novolog) Insulin Aspart, Recombinant 100 u/ml 10 ml vial SC SCH ×7 (08:19→21:52)
--- NOTE | 2017-07-04 08:27 | PN ---
DATE: 07/01/2017 ENDO FOLLOWUP NOTE LOCATION: ICU, room 6. SUBJECTIVE: This is a 72-year-old male with recent uncontrolled type 2 insulin-requiring diabetes, presenting here with diabetic ketoacidosis and since then improved clinically and metabolically as noted thereof. His oral intake, however, remains quite variable and suboptimal as per the Nursing staff and today's lunch time glucose dropped to 76 mg/dL as noted. No overt neuroglycopenic or hyperadrenergic manifestations are observed otherwise, except for some hunger pangs as noted. His glucose levels overnight ranged from 177 to 186 mg/dL. The latest chemistries shows a BUN of 24, sodium 148, potassium 3.9, chloride 110, CO2 25, glucose 189, and creatinine 1.0. So at this time, we will modify once again his basal and bolus insulin regimen and lower the NovoLog to 6 units subcu t.i.d before meals to start at lunch time today as ordered. We will also continue, however, the basal insulin given as Lantus at 24 units subcu at bedtime daily as given. If his oral intake continues to be suboptimal, then may lower the basal insulin slightly overnight as indicated. We will continue the low dose correction scale using NovoLog insulin as given. We will follow and advise accordingly. Helena Dior MD
[2017-07-04] MEDS ORDERED: Potassium Chloride 20 mEq/15 ml LIQ UD PO ONE (12:00)
--- NOTE | 2017-07-04 14:17 | CP.PCM.PN ---
Subjective - Date & Time of Evaluation Date of Evaluation: 07/04/17 Time of Evaluation: 08:00 - Subjective Subjective: clinically same Objective - Vital Signs/Intake and Output Vital Signs (last 24 hours): Temp Pulse Resp BP Pulse Ox 98.2 F 85 20 162/76 H 96 07/04/17 07:21 07/04/17 07:21 07/04/17 07:21 07/04/17 07:21 07/04/17 07:21 Intake and Output: 07/04/17 07/04/17 06:59 18:59 Intake Total 250 150 Output Total 300 300 Balance -50 -150 - Medications Medications: Current Medications Aspirin (Ecotrin) 81 mg PO DAILY [facility] Last Admin: 07/04/17 09:39 Dose: 81 mg Famotidine (Pepcid) 20 mg PO DAILY [facility] Last Admin: 07/04/17 09:38 Dose: 20 mg Piperacillin Sod/Tazobactam Sod (Zosyn 2.25 Gm Iv Premix) 2.25 gm in 50 mls @ 100 mls/hr IVPB Q8H [facility] PRN Reason: Protocol Last Admin: 07/04/17 06:36 Dose: 100 mls/hr Insulin Aspart (Novolog) 0 unit SC ACHS [facility] Last Admin: 07/04/17 11:32 Dose: Not Given Insulin Aspart (Novolog) 6 unit SC AC [facility] Last Admin: 07/04/17 11:58 Dose: 6 unit Insulin Glargine (Lantus) 24 unit SC HS [facility] Last Admin: 07/03/17 21:38 Dose: 24 units Levothyroxine Sodium (Synthroid) 25 mcg PO DAILY@0630 [facility] Last Admin: 07/04/17 05:41 Dose: 25 mcg Rosuvastatin Calcium (Crestor) 5 mg PO HS [facility] Last Admin: 06/30/17 22:56 Dose: 5 mg - Labs Labs: 07/02/17 06:15 07/04/17 07:24 PT 11.1 SECONDS (9.7-12.2) 06/29/17 07:08 INR 1.0 06/29/17 07:08 APTT 32 SECONDS (21-34) 06/29/17 07:08 - Constitutional Appears: Well - Head Exam Head Exam: ATRAUMATIC, NORMAL INSPECTION, NORMOCEPHALIC - Eye Exam Eye Exam: EOMI, Normal appearance, PERRL Pupil Exam: NORMAL ACCOMODATION, PERRL - ENT Exam ENT Exam: Mucous Membranes Moist, Normal Exam - Neck Exam Neck Exam: Full ROM, Normal Inspection. absent: Lymphadenopathy - Respiratory Exam Respiratory Exam: Decreased Breath Sounds - Cardiovascular Exam Cardiovascular Exam: REGULAR RHYTHM, +S1, +S2 - GI/Abdominal Exam GI & Abdominal Exam: Soft, Diminished Bowel Sounds - Rectal Exam Rectal Exam: Deferred
[2017-07-04] MEDS: (Lantus) Insulin Glargine, Recombinant SC SCH (21:51)
--- NOTE | 2017-07-04 22:09 | CP.PCM.PN ---
Subjective - Date & Time of Evaluation Date of Evaluation: 07/04/17 Time of Evaluation: 22:09 - Subjective Subjective: patient seen on general medical floor. afebrile, Awake and alert. offers no complaints. LABS;; REVIEWED ALL CULTURES NEGATIVE . LFTS IMPROVED. Objective - Vital Signs/Intake and Output Vital Signs (last 24 hours): Temp Pulse Resp BP Pulse Ox 97.7 F 85 20 162/76 H 96 07/04/17 15:00 07/04/17 15:58 07/04/17 15:00 07/04/17 15:58 07/04/17 15:58 Intake and Output: 07/04/17 07/05/17 18:59 06:59 Intake Total 800 Output Total 1000 Balance -200 - Medications Medications: Current Medications Aspirin (Ecotrin) 81 mg PO DAILY [facility] Last Admin: 07/04/17 09:39 Dose: 81 mg Famotidine (Pepcid) 20 mg PO DAILY [facility] Last Admin: 07/04/17 09:38 Dose: 20 mg Piperacillin Sod/Tazobactam Sod (Zosyn 2.25 Gm Iv Premix) 2.25 gm in 50 mls @ 100 mls/hr IVPB Q8H [facility] PRN Reason: Protocol Last Admin: 07/04/17 22:05 Dose: 100 mls/hr Insulin Aspart (Novolog) 0 unit SC ACHS [facility] Last Admin: 07/04/17 21:52 Dose: Not Given Insulin Aspart (Novolog) 6 unit SC AC [facility] Last Admin: 07/04/17 18:09 Dose: 6 unit Insulin Glargine (Lantus) 24 unit SC HS [facility] Last Admin: 07/04/17 21:51 Dose: 24 units Levothyroxine Sodium (Synthroid) 25 mcg PO DAILY@0630 [facility] Last Admin: 07/04/17 05:41 Dose: 25 mcg Rosuvastatin Calcium (Crestor) 5 mg PO HS [facility] Last Admin: 06/30/17 22:56 Dose: 5 mg - Labs Labs: 07/02/17 06:15 07/04/17 07:24 PT 11.1 SECONDS (9.7-12.2) 06/29/17 07:08 INR 1.0 06/29/17 07:08 APTT 32 SECONDS (21-34) 06/29/17 07:08 - Constitutional Appears: No Acute Distress - Head Exam Head Exam: NORMAL INSPECTION - Eye Exam Additional comments: patient legally blind. - ENT Exam ENT Exam: Normal Oropharynx - Neck Exam Neck Exam: Normal Inspection - Respiratory Exam Respiratory Exam: Clear to Ausculation Bilateral - Cardiovascular Exam Cardiovascular Exam: REGULAR RHYTHM, +S1, +S2 - GI/Abdominal Exam GI & Abdominal Exam: Soft, Normal Bowel Sounds - Extremities Exam Extremities Exam: absent: Calf Tenderness, Pedal Edema - Neurological Exam Neurological Exam: Awake, Oriented x3, Reflexes Normal - Skin Skin Exam: Normal Color, Warm Assessment and Plan - Assessment and Plan (Free Text) Assessment: Assessment: S/P TOXIC METABOLIC ENCEPHALOPATHY./(IMPROVED ) DIABETIC KETOACIDOSIS.-IMPROVING HYPERNATREMIA-IMPROVING SEVERE DEHYDRATION. HYPOTHYROIDISM BENIGN PROSTATIC HYPERTROPHY. HYPERCHOLESTEROLEMIA. PLAN iv FLUIDS PER CT MRI TECHNOLOGIST. PATIENT OFF INSULIN DRIP-1 AND REGULAR COVERAGE. CONTINUE iv ZOSYN 2.25 G EVERY 8 HOURLY 06/29/17 X 2 DAYS MORE OFF iv VANCOMYCIN. 07/02/17 fOLLOW-UP LFTS F/U PLATELETS cbc WITH DIFFERENTIAL IN A.M.
--- NOTE | 2017-07-04 23:13 | PN ---
DATE: ENDOCRINOLOGY FOLLOWUP NOTE LOCATION: Room 359. SUBJECTIVE: This is a 72-year-old male with recent uncontrolled type 2 insulin-requiring diabetes, now being followed closely for metabolic management. He presented here with diabetic ketoacidosis and dehydration and has since then improved clinically and metabolically as noted thereof. His latest glucose levels have ranged from 142 to 161 and 171 mg/dL. His latest chemistry showed a BUN of 8, sodium 143, potassium 3.5, chloride 104, CO2 of 28, glucose 153, and creatinine 0.9. So at this time, we will continue the same basal and bolus insulin regimen to allow for dose equilibration and keep him on the NovoLog given as 6 units subcu t.i.d. before meals as ordered. We will continue the basal insulin given as Lantus at 24 units subcu at bedtime daily as given. We will titrate increments as indicated to optimize metabolic control. We will also continue the same NovoLog insulin coverage at a very low dose algorithm to obviate hypoglycemia. We will obtain serial chemistries and supplement accordingly as needed. We will follow up with you. Helena Dior MD
[2017-07-05] MEDS: Levothyroxine 25 MCG TAB PO SCH (06:00)
[2017-07-05] MEDS: Piperacill/Tazo 2.25gm in Dex 2.25 GM/50 ML BAG IVPB SCH ×3 (06:01→22:03)
[2017-07-05] MEDS: (Novolog) Insulin Aspart, Recombinant 100 u/ml 10 ml vial SC SCH ×7 (08:30→22:04)
[2017-07-05 08:38] LABS: BASO % 0.5 % (0.0-2.0); EOS # 0.3 K/uL (0.0-0.7); EOS % 3.9 % (0.0-4.0); HEMOGLOBIN 15.2 g/dL (12.0-18.0); LYMPH # 1.5 K/uL (1.0-4.3); LYMPH % 18.7 % (20.0-40.0); MEAN CELL VOLUME 95.1 fL (80.0-94.0); MEAN CORPUSCULAR HEMOGLOBIN 32.2 pg (27.0-31.0); MEAN CORPUSCULAR HGB CONC 33.9 g/dL (33.0-37.0); MEAN PLATELET VOLUME 8.9 fL (7.2-11.7); MONO # 0.9 K/uL (0.0-0.8); MONO % 11.4 % (0.0-10.0); NEUT # 5.2 K/uL (1.8-7.0); NEUT % 65.5 % (50.0-75.0); RBC 4.72 Mil/uL (4.40-5.90); RED CELL DISTRIBUTION WIDTH 13.1 % (11.5-14.5)
[2017-07-05 08:56] LABS: BLOOD UREA NITROGEN 8 mg/dL (9-20); CALCIUM 9.2 mg/dl (8.6-10.4); GFR AFRICAN-AMERICAN > 60; GFR NON-AFRICAN AMERICAN > 60
--- NOTE | 2017-07-05 15:39 | CP.PCM.PN ---
Subjective - Date & Time of Evaluation Date of Evaluation: 07/05/17 Time of Evaluation: 07:40 - Subjective Subjective: clinically same Objective - Vital Signs/Intake and Output Vital Signs (last 24 hours): Temp Pulse Resp BP Pulse Ox 98.3 F 84 20 136/71 96 07/05/17 15:33 07/05/17 15:33 07/05/17 15:33 07/05/17 15:33 07/05/17 15:33 Intake and Output: 07/05/17 07/05/17 06:59 18:59 Intake Total 690 450 Output Total 700 300 Balance -10 150 - Medications Medications: Current Medications Aspirin (Ecotrin) 81 mg PO DAILY REPLACED BY [facility] Last Admin: 07/05/17 10:08 Dose: 81 mg Famotidine (Pepcid) 20 mg PO DAILY REPLACED BY [facility] Last Admin: 07/05/17 10:08 Dose: 20 mg Piperacillin Sod/Tazobactam Sod (Zosyn 2.25 Gm Iv Premix) 2.25 gm in 50 mls @ 100 mls/hr IVPB Q8H REPLACED BY [facility] PRN Reason: Protocol Last Admin: 07/05/17 14:36 Dose: 100 mls/hr Insulin Aspart (Novolog) 0 unit SC ACHS REPLACED BY [facility] Last Admin: 07/05/17 12:40 Dose: Not Given Insulin Aspart (Novolog) 6 unit SC AC REPLACED BY [facility] Last Admin: 07/05/17 12:41 Dose: 6 unit Insulin Glargine (Lantus) 24 unit SC HS REPLACED BY [facility] Last Admin: 07/04/17 21:51 Dose: 24 units Levothyroxine Sodium (Synthroid) 25 mcg PO DAILY@0630 REPLACED BY [facility] Last Admin: 07/05/17 06:00 Dose: 25 mcg Rosuvastatin Calcium (Crestor) 5 mg PO [facility] Last Admin: 06/30/17 22:56 Dose: 5 mg - Labs Labs: 07/05/17 08:21 07/05/17 08:21 PT 11.1 SECONDS (9.7-12.2) 06/29/17 07:08 INR 1.0 06/29/17 07:08 APTT 32 SECONDS (21-34) 06/29/17 07:08 - Constitutional Appears: Well - Head Exam Head Exam: ATRAUMATIC, NORMAL INSPECTION, NORMOCEPHALIC - Eye Exam Eye Exam: EOMI, Normal appearance, PERRL Pupil Exam: NORMAL ACCOMODATION, PERRL - ENT Exam ENT Exam: Mucous Membranes Moist, Normal Exam - Neck Exam Neck Exam: Full ROM, Normal Inspection. absent: Lymphadenopathy - Respiratory Exam Respiratory Exam: Decreased Breath Sounds - Cardiovascular Exam Cardiovascular Exam: REGULAR RHYTHM, +S1, +S2 - GI/Abdominal Exam GI & Abdominal Exam: Soft, Diminished Bowel Sounds - Rectal Exam Rectal Exam: Deferred
--- NOTE | 2017-07-05 20:50 | PN ---
DATE: ENDOCRINOLOGY FOLLOWUP NOTE LOCATION: Room 359. SUBJECTIVE: This is a 72-year-old male with recent uncontrolled type 2 insulin-requiring diabetes, now being followed closely for metabolic management. His glycemic levels are fluctuating but much improved at this time and the latest glucose studies have ranged from 143 to 179 mg/dL. The latest chemistry showed a BUN of 8, sodium 141, potassium 4, chloride 104, CO2 of 28, glucose 155, and creatinine 0.8. ASSESSMENT AND PLAN: At this time, we will continue the same basal and bolus insulin regimen to allow for dose equilibration and keep him on the NovoLog given as 6 units subcu t.i.d. before meals as ordered. We will continue the Lantus given as 24 units subcu at bedtime daily to start tonight. We will continue the low-dose correction scale using Novolog insulin as ordered. We will titrate increments as indicated to optimize metabolic control. We will follow up with you. Helena Dior MD
[2017-07-05] MEDS: (Lantus) Insulin Glargine, Recombinant SC SCH (22:03)
--- NOTE | 2017-07-05 22:18 | CP.PCM.PN ---
Subjective - Date & Time of Evaluation Date of Evaluation: 07/05/17 Time of Evaluation: 22:18 - Subjective Subjective: AFEBRILE OFFERS NO COMPLAINTS. FEELING BETTER. LABS REVIEWED . ALL CULTURES -VE RENAL FUNCTION GOOD. BLOOD SUGARS UNDER CONTROL Objective - Vital Signs/Intake and Output Vital Signs (last 24 hours): Temp Pulse Resp BP Pulse Ox 98.3 F 84 20 136/71 96 07/05/17 15:33 07/05/17 15:33 07/05/17 15:33 07/05/17 15:33 07/05/17 15:33 Intake and Output: 07/05/17 07/06/17 18:59 06:59 Intake Total 450 Output Total 300 Balance 150 - Medications Medications: Current Medications Aspirin (Ecotrin) 81 mg PO DAILY [facility] Last Admin: 07/05/17 10:08 Dose: 81 mg Famotidine (Pepcid) 20 mg PO DAILY [facility] Last Admin: 07/05/17 10:08 Dose: 20 mg Piperacillin Sod/Tazobactam Sod (Zosyn 2.25 Gm Iv Premix) 2.25 gm in 50 mls @ 100 mls/hr IVPB Q8H [facility] PRN Reason: Protocol Last Admin: 07/05/17 22:03 Dose: 100 mls/hr Insulin Aspart (Novolog) 0 unit SC ACHS [facility] Last Admin: 07/05/17 22:04 Dose: Not Given Insulin Aspart (Novolog) 6 unit SC AC [facility] Last Admin: 07/05/17 18:27 Dose: 6 unit Insulin Glargine (Lantus) 24 unit SC HS [facility] Last Admin: 07/05/17 22:03 Dose: 24 units Levothyroxine Sodium (Synthroid) 25 mcg PO DAILY@0630 [facility] Last Admin: 07/05/17 06:00 Dose: 25 mcg Rosuvastatin Calcium (Crestor) 5 mg PO HS [facility] Last Admin: 06/30/17 22:56 Dose: 5 mg - Labs Labs: 07/05/17 08:21 07/05/17 08:21 PT 11.1 SECONDS (9.7-12.2) 06/29/17 07:08 INR 1.0 06/29/17 07:08 APTT 32 SECONDS (21-34) 06/29/17 07:08 - Constitutional Appears: No Acute Distress - Head Exam Head Exam: NORMAL INSPECTION - Eye Exam Additional comments: LEGALLY BLIND/. - Neck Exam Neck Exam: Normal Inspection - Respiratory Exam Respiratory Exam: Clear to Ausculation Bilateral - Cardiovascular Exam Cardiovascular Exam: REGULAR RHYTHM, +S1, +S2 - GI/Abdominal Exam GI & Abdominal Exam: Soft, Normal Bowel Sounds - Extremities Exam Extremities Exam: absent: Calf Tenderness, Pedal Edema - Neurological Exam Neurological Exam: Awake, CN II-XII Intact, Oriented x3 - Psychiatric Exam Psychiatric exam: Normal Mood - Skin Skin Exam: Normal Color, Warm Assessment and Plan - Assessment and Plan (Free Text) Assessment: S/P TOXIC METABOLIC ENCEPHALOPATHY./(IMPROVED ) DIABETIC KETOACIDOSIS.-IMPROVING HYPERNATREMIA-IMPROVING SEVERE DEHYDRATION. HYPOTHYROIDISM BENIGN PROSTATIC HYPERTROPHY. HYPERCHOLESTEROLEMIA. PLAN iv FLUIDS PER TRANSMISSION AND COORDINATION ENGINEER. PATIENT OFF INSULIN DRIP-1 AND REGULAR COVERAGE. CONTINUE iv ZOSYN 2.25 G EVERY 8 HOURLY 06/29/17 - TILL 07/06/17. PER MEDICAL TEAM .
[2017-07-06] MEDS: Levothyroxine 25 MCG TAB PO SCH (05:39)
[2017-07-06] MEDS: (Novolog) Insulin Aspart, Recombinant 100 u/ml 10 ml vial SC SCH ×6 (08:30→17:09)
[2017-07-06] MEDS ORDERED: Levothyroxine 25 MCG TAB PO SCH (08:30)
[2017-07-06] MEDS ORDERED: Multiple Vitamins Tab PO SCH (10:00)
[2017-07-06] MEDS ORDERED: Calcium-Vit D 500 mg-200 Units Tab UD PO SCH (10:00)
--- NOTE | 2017-07-06 16:50 | CP.PCM.PN ---
Subjective - Date & Time of Evaluation Date of Evaluation: 07/06/17 Time of Evaluation: 11:00 - Subjective Subjective: Alert, awake, no sob or distress. Objective - Vital Signs/Intake and Output Vital Signs (last 24 hours): Temp Pulse Resp BP Pulse Ox 98.4 F 72 20 120/64 94 L 07/06/17 15:00 07/06/17 15:31 07/06/17 15:00 07/06/17 15:31 07/06/17 15:31 Intake and Output: 07/06/17 07/06/17 06:59 18:59 Intake Total 240 400 Output Total 400 300 Balance -160 100 - Medications Medications: Current Medications Aspirin (Ecotrin) 81 mg PO DAILY [facility] Last Admin: 07/06/17 10:58 Dose: 81 mg Calcium/Vitamin D (Oyster Shell Calcium/Vitamin D 500 Mg-200 Iu) 1 tab PO DAILY [facility] Last Admin: 07/06/17 10:58 Dose: 1 tab Famotidine (Pepcid) 20 mg PO DAILY [facility] Last Admin: 07/06/17 10:58 Dose: 20 mg Insulin Aspart (Novolog) 0 unit SC ACHS [facility] Last Admin: 07/06/17 16:26 Dose: Not Given Insulin Aspart (Novolog) 6 unit SC AC [facility] Last Admin: 07/06/17 12:37 Dose: 6 unit Insulin Glargine (Lantus) 24 unit SC HS [facility] Last Admin: 07/05/17 22:03 Dose: 24 units Levothyroxine Sodium (Synthroid) 25 mcg PO DAILY@0630 [facility] Multivitamins (Hexavitamin) 1 tab PO DAILY [facility] Last Admin: 07/06/17 10:58 Dose: 1 tab Rosuvastatin Calcium (Crestor) 5 mg PO HS [facility] Last Admin: 06/30/17 22:56 Dose: 5 mg Tamsulosin HCl (Flomax) 0.4 mg PO DAILY [facility] Last Admin: 07/06/17 10:58 Dose: 0.4 mg - Labs Labs: 07/05/17 08:21 07/05/17 08:21 PT 11.1 SECONDS (9.7-12.2) 06/29/17 07:08 INR 1.0 06/29/17 07:08 APTT 32 SECONDS (21-34) 06/29/17 07:08 Assessment and Plan - Assessment and Plan (Free Text) Assessment: Patient admitted with diabetic keto acidosis, seen and examined. Alert, responsive , no sob or chest pains, tolerating diet well. Discussed with DR Liudmila Araya , plan to discharge to [facility] today for physical therapy. No further antibiotics as per DR Edge. Will follow up by DR Liudmila Araya.
[2017-07-07] MEDS ORDERED: Levothyroxine 25 MCG TAB PO SCH (06:30)
--- NOTE | 2017-07-07 08:29 | PN ---
DATE: This is a 72-year-old male with recent uncontrolled type 2 insulin-requiring diabetes, now being followed closely for metabolic management because of recent hyperglycemic exacerbation as noted thereof. His glucose values are much improved at this time, and the latest glucose levels have ranged from 142, 171, and 183 mg/dL. The latest chemistry showed a BUN of 8, sodium 141, potassium 4.0, chloride 104, CO2 of 20, glucose 165, creatinine 0.8. At this time, we will continue the same basal and bolus insulin regimen to allow for dose equilibration and treat him on the NovoLog given as 6 units subcu t.i.d. before meals as ordered. We will also continue the same basal insulin given as Lantus at 24 units subcu at bedtime as given. We will titrate increments as indicated to optimize metabolic control. We will follow and advise accordingly. Helena Dior MD
[2017-07-07 11:09] VITALS: BP 120/64; PULSE 72; TEMP 98.4; O2SAT 94
== END 2017-07-06 17:44 | DRG 871 ==
LOC: C.ER 06:32 → C.9I 08:35 → UNDODISIN 06-30 13:30 → C.3T 07-03 01:52
PROVIDERS: ADMIT Internal Medicine Nephrology; ATTEND Internal Medicine Nephrology
DX: A41.9 Sepsis, unspecified organism (principal); E11.10 Type 2 diabetes mellitus with ketoacidosis without coma; G93.41 Metabolic encephalopathy; E87.0 Hyperosmolality and hypernatremia; E87.1 Hypo-osmolality and hyponatremia; N17.9 Acute kidney failure, unspecified; E87.2 Acidosis; D69.6 Thrombocytopenia, unspecified; R65.20 Severe sepsis without septic shock; E03.9 Hypothyroidism, unspecified; E78.00 Pure hypercholesterolemia, unspecified; E86.0 Dehydration; I10 Essential (primary) hypertension; N40.0 Benign prostatic hyperplasia without lower urinary tract symptoms; Z79.82 Long term (current) use of aspirin; Z86.73 Personal history of transient ischemic attack (TIA), and cerebral infarction without residual deficits; Z79.4 Long term (current) use of insulin